=== PATIENT | male | born 1945 | race Caucasian/White ===

== ENCOUNTER 2023-06-02 17:42 | Emergency (ER) | payer OTHER ==
[~2023-06-02] VITALS: Ht 175.3 cm; Wt 83.3 kg
[2023-06-02 18:54] VITALS: BP 147/53; PULSE 52; RESP 16; TEMP 97.7; O2SAT 98
== END 2023-06-02 19:31 | disposition home or self-care (01) ==
LOC: ER 17:42
DX: S00.83XA Contusion of other part of head, initial encounter (principal); I10 Essential (primary) hypertension; E78.5 Hyperlipidemia, unspecified; W18.09XA Striking against other object with subsequent fall, initial encounter; Y93.89 Activity, other specified; Y92.89 Other specified places as the place of occurrence of the external cause; Y99.8 Other external cause status
CPT/HCPCS: 70450; 72125

== ENCOUNTER 2024-07-25 18:11 | Inpatient (IN) | payer MEDICARE, OTHER ==
[~2024-07-25] VITALS: Ht 175.3 cm; Wt 71.8 kg
[~2024-07-25 18:11] MED LIST: ATEN25TA PO; ATOR40TA52 PO; DRON400T PO; FOLI-119 PO; LEVO-140 PO; LISI20TA56 PO; MUPI2OIN2 TOP
--- NOTE | 2024-07-25 18:41 | ECG ---
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
--- NOTE | 2024-07-25 19:30 | ED.PDOC ---
History of Present Illness HPI Comments 78 year old male presents to the ED with a chief complaint of generalized weakness onset 2 weeks. Patient states he has been experiencing generalized weakness as well as fatigue, increased sleeping, cough with occasional shortness of breath. Upon ED arrival, patient O2 sat was 88% on RA, placed on 2L O2. He has also been experiencing diarrhea for the past 2 days. PMHx HTN, HLD, thyroid. Denies chest pain, dizziness, nausea, vomiting, diarrhea, fevers, chills. No other symptoms or modifying factors present at this time. Chief Complaint: General Weakness Time Seen by MD: 18:43 Primary Care Provider: GEO Reviewed Notes: Medications, Allergies Allergies: Coded Allergies: NO KNOWN ALLERGIES (Unverified , 06/02/23) Home Meds Reported Medications Folic Acid (Folic Acid) 1 Mg Tab, 1 TAB PO DAILY for 90 Days, #90 07/26/24 Lisinopril (Lisinopril) 20 Mg Tab, 1 TAB PO DAILY for 90 Days, #90 07/26/24 Dronedarone Hydrochloride (Multaq) 400 Mg Tab, 1 TAB PO DAILY for 90 Days, #90 07/26/24 Atenolol (Atenolol) 25 Mg Tab, 0.5 TAB PO DAILY for 90 Days, #45 07/26/24 Atorvastatin Calcium (ATORVASTATIN CALCIUM) 40 Mg Tab, 1 TAB PO QPM for 10 Days, #10 07/26/24 Levothyroxine Sodium (Synthroid) 137 Mcg Tab, 1 TAB PO DAILY for 90 Days, #90 07/26/24 Mupirocin (Pseudomonas Fluores (Mupirocin) 2 % Oin, 1 APPLIC TOP TID for 20 D ays, #30 07/26/24 Information Source: Patient Mode of Arrival: Ambulatory Severity: Moderate Timing: Weeks Duration: Since onset Prehospital treatment: None Vital Signs Vital Signs Date Time Temp Pulse Resp B/P (MAP) Pulse Ox O2 Delivery O2 Flow Rate FiO2 07/26/24 02:57 62 98 Room Air* 2 N/A Nasal Cannula* 07/26/24 02:55 98.2 16 112/54 (73) 98.2 Physical Exam General: Awake, alert and oriented. No acute distress. Skin: Skin in warm, dry and intact. Appropriate color for ethnicity. HEENT: The head is normocephalic and atraumatic. Conjunctivae are clear without exudates or hemorrhage. Sclera is non-icteric. EOM are intact. No signs of nystagmus. Eyelids are normal in appearance without swelling or lesions. Oral mucosa is pink and moist Neck: The neck is supple with normal range of motion. No JVD. Cardiac: Heart rate and rhythm are normal. No murmurs, gallops, or rubs are auscultated. Respiratory: No signs of respiratory distress. Lung sounds are clear in all lobes bilaterally without rales, rhonchi, or wheezes. Abdominal: Abdomen is soft, non-tender without distention. Bowel sounds are present and normoactive in all four quadrants. Extremities: Bilateral lower extremity edema Neurological: The patient is awake, alert and oriented to person, place, and time with normal speech. Speech is clear. There is no facial asymmetry. Psychiatric: Appropriate mood and affect. Good judgement and insight. Review of Systems: REVIEW OF SYSTEMS: No fever, no chills, positive fatigue HEENT: No sore throat, no earache, no congestion, no neck pain. Cardiac: No chest pain. No palpitations. Lungs: Positive shortness of breath, positive cough. GI: No nausea, no vomiting, no diarrhea, no constipation, no abdominal pain : No dysuria, frequency, or urgency. No hematuria. Musculoskeletal: No joint pain , no joint swelling, no extremity edema. Skin: No rash, no itching. Neuro: No headache, no dizziness, positive generalized weakness Past Medical History PAST MEDICAL HISTORY: High Lipids, HTN, Thyroid Surgical History: CABG Family History Family History: Reviewed,noncontributory to illness, No family hx of Cancer, No family hx of DM, No family hx of Heart jemma, No family hx of HTN, No family hx ofKidney jemma, No family hx of Liver jemma, No family hx of Lung jemma, No family hx of Stroke Social History Smoker: Non-Smoker Alcohol: Denies ETOH Use Drugs: Denies Drug Use Lives In: Home Was a procedure done? Was a procedure done?: No EKG EKG : Comments No STEMI Differential Dx Considerations may include: Differential diagnoses considered includebut arenot limited to acute Bronchitis, Asthma, COPD, Pneumothorax, PE, CHF, Pulmonary HTN, Anemia, CO Poisoning, Methemoglobinemia, Hyperventilation, Metabolic Acidosis, Pulmonary Edema, Pneumonia, ACS, Pericardial Tamponade, Anxiety, other X-Ray, Labs, Meds, VS Vital Signs Date Time Temp Pulse Resp B/P (MAP) Pulse Ox O2 Delivery O2 Flow Rate FiO2 07/26/24 02:57 62 98 Room Air* 2 N/A Nasal Cannula* 07/26/24 02:55 98.2 62 16 112/54 (73) 98 98.2 07/26/24 00:15 98.4 66 16 116/62 (80) 98 98.4 07/25/24 18:39 75 07/25/24 18:28 98.2 77 24 109/55 (73) 88 98.2 Lab Test 07/25/24 23:20 07/25/24 19:08 Range/Units Blood Gas Specimen Type Arterial Blood Gas Sample Site Right radial Blood Gas Patient Temperature 37.0 Arterial Blood Date Drawn [id number] Arterial Blood pH 7.448 7.350-7.450 Arterial Blood Partial Pressure CO2 27.1 L 35.0-48.0 mmHg Arterial Blood Partial Pressure O2 65.6 L 83.0-108.0 mmHg Arterial Blood HCO3 18.3 L 21.0-28.0 mmol/L Arterial Blood Oxygen Saturation 91.4 L 94.0-98.0 % Arterial Blood Base Excess -4.4 L -2.0-3.0 mmol/L Arterial Blood Oxyhemoglobin 90.9 L 94.0-98.0 % Arterial Blood Carboxyhemoglobin 0.2 L 0.5-1.5 % Arterial Blood Methemoglobin 0.4 0.0-1.5 % Baldo Test Yes Blood Gas Total Hemoglobin 12.00 L 13.5-17.5 g/dL Blood Gas Liter Flow 2.00 Blood Gas Modality Nasal cannula FiO2 % 28.0 Specimen Drawn By David reyes White Blood Count 10.3 4.4-10.8 10^3/uL Red Blood Count 4.22 L 4.5-5.90 10^6/uL Hemoglobin 11.9 L 13.5-17.5 g/dL Hematocrit 35.8 L 41.0-53.0 % Mean Corpuscular Volume 84.8 80.0-100.0 fL Mean Corpuscular Hemoglobin 28.2 28.0-32.0 pg Mean Corpuscular Hemoglobin Concent 33.2 32.0-36.0 g/dL Red Cell Distribution Width 15.8 H 11.8-14.3 % Platelet Count 307 140-450 10^3/uL Mean Platelet Volume 7.1 6.9-10.8 fL Neutrophils (%) (Auto) 85.9 H 37.0-80.0 % Lymphocytes (%) (Auto) 6.5 L 10.0-50.0 % Monocytes (%) (Auto) 6.3 0.0-12.0 % Eosinophils (%) (Auto) 0.8 0.0-7.0 % Basophils (%) (Auto) 0.5 0.0-2.0 % Neutrophils # (Auto) 8.8 H 1.6-8.6 10 ^3/uL Lymphocytes # (Auto) 0.7 0.4-5.4 10 ^3/uL Monocytes # (Auto) 0.6 0-1.3 10 ^3/uL Eosinophils # (Auto) 0.1 0-0.8 10 ^3/uL Basophils # (Auto) 0.1 0-0.2 10 ^3/uL Nucleated Red Blood Cells 0.0 % Sodium Level 136 136-145 mmol/L Potassium Level 3.8 3.5-5.1 mmol/L Chloride Level 105 98-107 mmol/L Carbon Dioxide Level 20 20-31 mmol/L Anion Gap 11 5-15 Blood Urea Nitrogen 17 9-23 mg/dL Creatinine 0.80 0.700-1.30 mg/dL Glomerular Filtration Rate Calc 91 >90 mL/min BUN/Creatinine Ratio 21.3 H 10.0-20.0 Serum Glucose 109 H 74-106 mg/dL Lactic Acid Level 1.6 0.4-2.0 mmol/L Calcium Level 9.0 8.7-10.4 mg/dL Magnesium Level 1.9 1.6-2.6 mg/dL Total Bilirubin 1.2 H 0.2-1.0 mg/dL Aspartate Amino Transferase (AST) 40 13-40 U/L Alanine Aminotransferase (ALT) 35 7-40 U/L Alkaline Phosphatase 76 46-116 U/L Troponin I High Sensitivity 16 </=54 ng/L B-Type Natriuretic Peptide 387.44 0-100 pg/mL Total Protein 5.8 5.7-8.2 g/dL Albumin 3.0 L 3.2-4.8 g/dL Thyroid Stimulating Hormone (TSH) 12.89 H 0.55-4.78 uIU/mL Microbiology Date/Time Source Procedure Growth Status 07/25/24 19:08 Blood Blood Culture - Preliminary NO GROWTH AFTER 24 HOURS OF INCUBATION. Resulted 07/25/24 18:50 Blood Blood Culture - Preliminary NO GROWTH AFTER 24 HOURS OF INCUBATION. Resulted Current Medications Medications (Trade) Dose Ordered Sig/Laurence Route Start Time Stop Time Status Last Admin Ceftriaxone Sodium 50 ml @ 100 mls/hr ONCE ONCE IV 07/25/24 22:30 07/25/24 22:59 DC 07/25/24 22:30 Azithromycin 250 ml @ 125 mls/hr ONCE ONCE IV 07/25/24 22:30 07/26/24 00:29 DC 07/25/24 22:30 Sodium Chloride 1,000 ml @ 100 mls/hr Q10H ONCE IV 07/25/24 23:15 07/26/24 06:08 DC 07/25/24 23:15 [place] [address] Ph: [phone] DIAGNOSTIC IMAGING Diagnostic Imaging Report : [id number] Signed PATIENT: JAMIL INIGUEZ ACCT: [id number] UNIT: [id number] : 1945 LOC: ER ROOM / BED: / AGE / SEX: 78 / M ADM STATUS: REG ER SERVICE 49 ORDERING PHYSICIAN: LAILA DILLON MD PROCEDURE(s): CXRP - CHEST PORTABLE REASON: Cough, hypoxia ORDER NUMBER(s): [id number], ACCESSION NUMBER(s): [id number] CHEST RADIOGRAPH Indication: Cough, hypoxia Technique: Single frontal view of the chest was obtained Comparison: None FINDINGS: Both lungs are filled with innumerable ill-defined nodules of various sizes. There is a probable effusion left lung base . heart size is normal patient has had an open thoracotomy. IMPRESSION: 1. Innumerable ill-defined nodules. Follow-up CT examination is recommended ATED BY: PATRICK QUINONEZ MD DICTATED DATE/TIME: 07/25/241927 SIGNED BY: PATRICK QUINONEZ MD SIGNED DATE/TIME: 07/25/241927 CC: [facility] [id number] [place] [id number] Ph: [phone] DIAGNOSTIC IMAGING Diagnostic Imaging Report : [id number] Signed PATIENT: JAMIL INIGUEZ ACCT: [id number] UNIT: [id number] : 1945 LOC: ER ROOM / BED: / AGE / SEX: 78 / M ADM STATUS: REG ER SERVICE 16 ORDERING PHYSICIAN: LAILA DILLON MD PROCEDURE(s): CXICT - CHEST WITH CONTRAST REASON: Abnormal chest x ray ORDER NUMBER(s): [id number], ACCESSION NUMBER(s): [id number] Procedure: CT CHEST WITH CONTRAST Reason for study/Clinical History: Abnormal chest x ray Comparison Study: None available at time of dictation. Exam Date: 07/25/2024 11:00 PM Radiation Dose Information: CTDI volume is 16.25 mGy. Dose-length product is 625.89 mGy*cm TECHNIQUE: After the uneventful administration of intravenous contrast intravenously, CT imaging was performed through the chest. Coronal and sagittal reformations were performed by the technologist. Contrast consisted of 100 mL Omnipaque 300 with none wasted FINDINGS: Patient had innumerable round chest nodules various sizes which are more confluent in the lung bases. There is bilateral pleural effusions heart is enlarged with dense calcifications in the coronary arteries patient has had open thoracotomy bones are osteopenic. IMPRESSION: Innumerable well-circumscribed chest nodules. I would check patient's clinical history 4 possible primary disease If more imaging is required, I would recommend PET scan. Biopsy would be appropriate if primary lesion is not known. 1. All CT scans at this medical facility are performed using dose modulation techniques as appropriate to a performed exam including the following: Automated exposure control was utilized; adjustment of the MA and/or KV according to patient size; and use of iterative reconstruction technique. ATED BY: PATRICK QUINONEZ MD DICTATED DATE/TIME: 07/25/242341 SIGNED BY: PATRICK QUINONEZ MD SIGNED DATE/TIME: 07/25/242341 CC: Time of 1ST Reevaluation: 19:13 Reevaluation 1ST: Unchanged Patient Education/Counseling: Diagnosis, Treatment, Prognosis Family Education/Counseling: No Family Present Departure 1 Departure Time of Disposition: 22:44 Impression: Primary Impression: Hypoxia Additional Impressions: Abnormal chest x-ray Anemia Disposition: ADMITTED INPATIENT Condition: Stable Comments 78-year-old male with generalized weakness, hypoxia. Abnormal chest x-ray sug gestive of malignant process. Patient will be admitted for oncology consultation, CT chest. Antibiotics initiated for coverage of possible infectious Consolidations of the lung. Extensive evaluation was performed in attempt to identify or rule out: (See differential diagnosis section) The following tests were ordered, and results were reviewed by me and discussed with patient: (See diagnostic results section) The following test were independently interpreted by me: EKG I reviewed and agreed with the following test results read by other providers: Chest x-ray I reviewed the following notes from the pt's past medical encounters: Patient instructions from May 2023 for head injury Additional information was gathered from interviewing the following independent historians: N/A Discussion of management or test interpretation with external physician/other qualified health care manager: N/A Addressed an acute or chronic illness that poses a threat to life or bodily function: Shortness of breath, hypoxia going to suspected malignancy Decision regarding hospitalization or escalation of hospital level of care: Risk and benefits of admission for further treatment of patient's condition was considered. Due to patient's current clinical condition, high risk of decline and poor outcome if discharged and need for further inpatient management and monitoring, patient will be admitted to the hospital. Discussed with the patient Drug therapy requiring intensive monitoring for toxicity: IV contrast Parenteral controlled substances: N/A Decision regarding elective major surgery with identified patient or procedure risk factors: N/A Decision regarding emergency major surgery: N/A Decision not to resuscitate or to de-escalate care because of poor prognosis: N/A Diagnosis or treatment significantly limited by social determinants of health: N/A Critical Care Note Critical Care Time?: No Stability Stability form required: No I personally scribed for LAILA DILLON MD ([email or web address]) on 07/25/24 at 19:30. Elec tronically submitted by Jody He ([email or web address]). I personally scribed for LAILA DILLON MD ([email or web address]) on 07/25/24 at 19:30. Electronically submitted by Jody He ([email or web address]). I personally scribed for LAILA DILLON MD ([email or web address]) on 07/25/24 at 20:12. Electronically submitted by Jody He ([email or web address]). I personally scribed for LAILA DILLON MD ([email or web address]) on 07/25/24 at 23:47. Electronically submitted by Jody He ([email or web address]). LAILA DILLON MD Jul 25, 2024 19:30
[2024-07-25 19:36] LABS: Basophils # (auto) 0.1 10 ^3/uL (0-0.2); Basophils % (auto) 0.5 % (0.0-2.0); Eosinophils # (auto) 0.1 10 ^3/uL (0-0.8); Eosinophils % (auto) 0.8 % (0.0-7.0); Hematocrit 35.8 % (41.0-53.0); Hemoglobin 11.9 g/dL (13.5-17.5); Lymphocytes # (auto) 0.7 10 ^3/uL (0.4-5.4); Lymphocytes % (auto) 6.5 % (10.0-50.0); Mean Corpuscular Hemoglobin 28.2 pg (28.0-32.0); Mean Corpuscular Hgb Conc. 33.2 g/dL (32.0-36.0); Mean Corpuscular Volume 84.8 fL (80.0-100.0); Monocytes # (auto) 0.6 10 ^3/uL (0-1.3); Monocytes % (auto) 6.3 % (0.0-12.0); Neutrophils # (auto) 8.8 10 ^3/uL (1.6-8.6); Neutrophils % (auto) 85.9 % (37.0-80.0); Platelet Count (auto) 307 10^3/uL (140-450); Red Blood Cells 4.22 10^6/uL (4.5-5.90); Red Cell Distribution Width 15.8 % (11.8-14.3); White Blood Cell 10.3 10^3/uL (4.4-10.8)
[2024-07-25 20:00] LABS: Alanine Aminotransferase 35 U/L (7-40); Alkaline Phosphatase 76 U/L (46-116); Anion Gap 11 (5-15); BUN/Creatinine Ratio 21.3 (10.0-20.0); Blood Urea Nitrogen 17 mg/dL (9-23); Carbon Dioxide 20 mmol/L (20-31); Chloride 105 mmol/L (98-107); Magnesium 1.9 mg/dL (1.6-2.6); Potassium 3.8 mmol/L (3.5-5.1); Sodium 136 mmol/L (136-145); Total Protein 5.8 g/dL (5.7-8.2)
[2024-07-25 20:01] LABS: Bilirubin, Total 1.2 mg/dL (0.2-1.0)
[2024-07-25 20:02] LABS: Aspartate Aminotransferase 40 U/L (13-40); Glucose 109 mg/dL (74-106)
[2024-07-25] MEDS: cefTRIAXone 1GM/50ML D5W 50 ML IV ONE (22:30)
[2024-07-25] MEDS: AZITHROMYCIN 500MG/ 250ML 250 ML IV ONE (22:30)
[2024-07-25] MEDS: IOHEXOL 300 MG/ML 100ML BOTTLE IJ ONE (22:57)
[2024-07-25] MEDS: SODIUM CHLORIDE 0.9% 1,000 ML IV ONE (23:15)
[2024-07-25 23:30] LABS: Base Excess -4.4 mmol/L (-2.0-3.0)
--- NOTE | 2024-07-25 23:44 | DVH ---
Procedure: CT CHEST WITH CONTRAST Reason for study/Clinical History: Abnormal chest x ray Comparison Study: None available at time of dictation. Exam Date: 07/25/2024 11:00 PM Radiation Dose Information: CTDI volume is 16.25 mGy. Dose-length product is 625.89 mGy*cm TECHNIQUE: After the uneventful administration of intravenous contrast intravenously, CT imaging was performed through the chest. Coronal and sagittal reformations were performed by the technologist. Co ntrast consisted of 100 mL Omnipaque 300 with none wasted FINDINGS: Patient had innumerable round chest nodules various sizes which are more confluent in the lung bases. There is bilateral pleural effusions heart is enlarged with dense calcifications in the coronary jolie maura patient has had open thoracotomy bones are osteopenic. IMPRESSION: Innumerable well-circumscribed chest nodules. I would check patient's clinical history 4 possible jame angel disease If more imaging is required, I would recommend PET scan. Biopsy would be appropriate if primary lesio n is not known. 1. All CT scans at this medical facility are performed using dose modulation techniques as appropriat e to a performed exam including the following: Automated exposure control was utilized; adjustment of the MA and/or KV according to patient size; and use of iterative reconstruction technique.
[2024-07-26] VITALS (16 sets, daily range): BP systolic 94–164; BP diastolic 33–117; PULSE 62–77; RESP 15–18; TEMP 97.4–98.1; O2SAT 90–98
--- NOTE | 2024-07-26 05:09 | DVHHPRES ---
History of Present Illness Resident Creating Document: ROSA MARK RESIDENT History of Present Illness Mr. Ziegler is a 78-year-old male patient with past medical history of CABG, hypothyroidism who presented to the ER with a chief complaint of generalized weakness and productive cough for the past 2 weeks. Patient reports that he was doing all right and then developed worsening weakness, could not stay awake, reported lethargy which has been gradually worsening for the past couple of weeks. He denies any shortness of breaths, orthopnea or PND. Denies chest pain, abdominal or urinary symptoms. Patient denied any recent traveling or hiking or any insect bites. On arrival to the ER, patient was tachypneic and hypoxic, patient was started on nasal cannula oxygen supplementation. Chest x-ray completed, showed bilateral nodules. CT chest with contrast completed, showed Innumerable well- circumscribed chest nodules. I would check patient's clinical history 4 possible primary disease. Past medical history: CABG, hypothyroidism Family history: Lung disease in sister, details unknown. Otherwise unremarkable. Social history: Denies lifetime history of smoking, alcohol or drug use. Worked at [employer]. Home medications: Atenolol 12.5 mg, lisinopril 10 mg, Synthroid 137 mcg daily, atorvastatin 40 mg daily, aspirin 80 mg daily, multivitamins. PCP: Estuardo Mckeon Patient seen and examined at the bedside. Has bilateral basilar crackles. Lower extremity 2+ pitting edema. Past Medical History Hypothyroidism, hypertension Past Surgical History CABG Smoke: No ALCOHOL: none Drugs: None Lives: with Family (Daughter) Review of Systems Allergies: Coded Allergies: NO KNOWN ALLERGIES (Unverified , 06/02/23) Exam Vital Signs Vital Signs Date Time Temp Pulse Resp B/P (MAP) Pulse Ox O2 Delivery O2 Flow Rate FiO2 07/26/24 02:57 62 98 Room Air* 2 N/A Nasal Cannula* 07/26/24 02:55 98.2 16 112/54 (73) 98.2 Exam Patient sitting in the wheelchair, well conversational, A&O x4 General: afebrile, palor, mucosae are moist Cardiovascular: Regular S1 and S2. No murmurs, gallops or rubs. No JVD elevation. Bilateral 2+ pitting edema. Respiratory: Bilateral basilar crackles on auscultation. Pocus completed, showed small bilateral pleural effusion. Saturating 96 on nasal cannula supplementation. Abdomen: Soft, nontender, nondistended, normoactive bowel sounds, no rebound tenderness, no organomegaly, no masses Genitourinary: Deferred MSK/skin: Mobilizes 4 limbs. Skin is dry and warm Neurological: No motor, no sensitive deficits, normal speech. Pupils are isocoric and reactive. Psych/Mental Status: A/Ox3 Labs/Xrays Labs Test 07/25/24 23:20 07/25/24 19:08 Range/Units Blood Gas Specimen Type Arterial Blood Gas Sample Site Right radial Blood Gas Patient Temperature 37.0 Arterial Blood Date Drawn [id number] Arterial Blood pH 7.448 7.350-7.450 Arterial Blood Partial Pressure CO2 27.1 L 35.0-48.0 mmHg Arterial Blood Partial Pressure O2 65.6 L 83.0-108.0 mmHg Arterial Blood HCO3 18.3 L 21.0-28.0 mmol/L Arterial Blood Oxygen Saturation 91.4 L 94.0-98.0 % Arterial Blood Base Excess -4.4 L -2.0-3.0 mmol/L Arterial Blood Oxyhemoglobin 90.9 L 94.0-98.0 % Arterial Blood Carboxyhemoglobin 0.2 L 0.5-1.5 % Arterial Blood Methemoglobin 0.4 0.0-1.5 % Baldo Test Yes Blood Gas Total Hemoglobin 12.00 L 13.5-17.5 g/dL Blood Gas Liter Flow 2.00 Blood Gas Modality Nasal cannula FiO2 % 28.0 Specimen Drawn By David reyes White Blood Count 10.3 4.4-10.8 10^3/uL Red Blood Count 4.22 L 4.5-5.90 10^6/uL Hemoglobin 11.9 L 13.5-17.5 g/dL Hematocrit 35.8 L 41.0-53.0 % Mean Corpuscular Volume 84.8 80.0-100.0 fL Mean Corpuscular Hemoglobin 28.2 28.0-32.0 pg Mean Corpuscular Hemoglobin Concent 33.2 32.0-36.0 g/dL Red Cell Distribution Width 15.8 H 11.8-14.3 % Platelet Count 307 140-450 10^3/uL Mean Platelet Volume 7.1 6.9-10.8 fL Neutrophils (%) (Auto) 85.9 H 37.0-80.0 % Lymphocytes (%) (Auto) 6.5 L 10.0-50.0 % Monocytes (%) (Auto) 6.3 0.0-12.0 % Eosinophils (%) (Auto) 0.8 0.0-7.0 % Basophils (%) (Auto) 0.5 0.0-2.0 % Neutrophils # (Auto) 8.8 H 1.6-8.6 10 ^3/uL Lymphocytes # (Auto) 0.7 0.4-5.4 10 ^3/uL Monocytes # (Auto) 0.6 0-1.3 10 ^3/uL Eosinophils # (Auto) 0.1 0-0.8 10 ^3/uL Basophils # (Auto) 0.1 0-0.2 10 ^3/uL Nucleated Red Blood Cells 0.0 % Sodium Level 136 136-145 mmol/L Potassium Level 3.8 3.5-5.1 mmol/L Chloride Level 105 98-107 mmol/L Carbon Dioxide Level 20 20-31 mmol/L Anion Gap 11 5-15 Blood Urea Nitrogen 17 9-23 mg/dL Creatinine 0.80 0.700-1.30 mg/dL Glomerular Filtration Rate Calc 91 >90 mL/min BUN/Creatinine Ratio 21.3 H 10.0-20.0 Serum Glucose 109 H 74-106 mg/dL Lactic Acid Level 1.6 0.4-2.0 mmol/L Calcium Level 9.0 8.7-10.4 mg/dL Magnesium Level 1.9 1.6-2.6 mg/dL Total Bilirubin 1.2 H 0.2-1.0 mg/dL Aspartate Amino Transferase (AST) 40 13-40 U/L Alanine Aminotransferase (ALT) 35 7-40 U/L Alkaline Phosphatase 76 46-116 U/L Troponin I High Sensitivity 16 </=54 ng/L B-Type Natriuretic Peptide 387.44 0-100 pg/mL Total Protein 5.8 5.7-8.2 g/dL Albumin 3.0 L 3.2-4.8 g/dL Thyroid Stimulating Hormone (TSH) 12.89 H 0.55-4.78 uIU/mL Assessment/Plan Assessment/Plan Acute Hypoxic respiratory failure Bilateral pulmonary nodules rule out malignancy ? Congestive heart failure exacerbation Bilateral pleural effusion ? Malignant ? Bilateral multifocal pneumonia ? Uncontrolled hypothyroidism Anemia, likely anemia of chronic disease Plan: Chest CT with contrast completed by the admitting, showed Patient had innumerable round chest nodules various sizes which are more confluent in the lung bases.There is bilateral pleural effusions heart is enlarged with dense calcifications in the coronary arteries patient has had open thoracotomy bones are osteopenic. Recommend PET scan. Biopsy would be appropriate if primary lesion is not known. Pocus completed, showed small bilateral pleural effusion. Did not order chest ultrasound. Consider CT head/abdomen and pelvis to rule out primary source Started IV ceftriaxone and azithromycin Follow up with Coccidioides testing and sputum culture Follow up with free T3 and free T4 Continue home medication Synthroid 137 mcg daily Continue home medication aspirin 81 mg daily, lisinopril 10 mg daily Echocardiogram pending, DC IV fluids Plan discussed with patient in which all questions have been answered Goals of care discussed with patient for more than 28 minutes, full code status Case discussed with Dr. Gutierrez Plan discussed with: Patient Date of Service: Jul 26, 2024 Billing Provider: KYLEE GUTIERREZ MD Common Visit Codes: 98631-[id number] INP/OBS CARE (HIGH) ROSA MARK RESIDENT Jul 26, 2024 05:09 KYLEE GUTIERREZ MD Jul 26, 2024 09:57
[2024-07-26] MEDS ORDERED: HYDROcodone-ACET 5/325MG TAB PO PRN (05:30)
[2024-07-26] MEDS ORDERED: ACETAMINOPHEN 500 MG TAB or CAP PO PRN (05:30)
[2024-07-26] MEDS ORDERED: MORPHINE SULFATE INJ 2 MG/ml SYRG IV PRN (05:30)
[2024-07-26] MEDS: LEVOTHYROXINE SODIUM 25 MCG TAB PO SCH (06:00)
[2024-07-26] MEDS: IPRATROPIUM BROM 0.5 MG/2.5ML INH SOL NEB ONE (06:38)
[2024-07-26] MEDS: ALBUTEROL SULF 2.5 MG/0.5ML(0.5%) NEB SOLN NEB ONE (06:38)
[2024-07-26 06:47] LABS: T3 Total 0.42 ng/mL (0.60-1.81)
[2024-07-26 06:48] LABS: Free T4 (Free Thyroxine) 0.87 ng/dL (0.89-1.76)
[2024-07-26] MEDS: cefTRIAXone 1GM/50ML D5W 50 ML IV SCH (09:09)
--- NOTE | 2024-07-26 09:42 | DVHPNRES ---
Progress Note Date Seen: Jul 26, 2024 Resident Creating Document: FLORY VENEGAS RESIDENT Has the PT tested + for MRSA If YES, has PT been informed?: No Medical Necessity Reason Pt with a Central, PICC or Fol: No Subjective Review of Systems This is a 78-year-old male with past medical history of CABG x4, hypothyroidism, hypertension, who presented to the ED with chief complaint of generalized weakness, feeling tired productive cough for the past two weeks. The patient states that has not been feeling himself in the past two weeks, with increased fatigue and that his family members have also noticed it him strange. Upon admission, the patient denied shortness of breath, chest pain, abdominal tenderness, weight loss, fever/chills, night sweats or any other symptoms at this time. The patient reports a previous travels to [place] in March but no recent travels outside the country or any sick contacts. On admission patient was tachypneic and slightly hypoxic requiring oxygen through nasal cannula. Initial chest x-ray was performed showing multiple ill-defined nodules of various sizes. We performed a CT scan of the chest which showed multiple well- circumscribed chest nodules with mild bilateral pleural effusion. Patient will be admitted for further assessment and management. Patient seen and examined at bedside. Patient has generalized weakness and fatigue but is alert and oriented in person, place and time. There are well circumscribed multiple chest nodules on CT scan of the chest which could be infectious etiology but malignancy needs to be ruled out. Patient was started on IV ceftriaxone azithromycin for possible ongoing bacterial pneumonia. We ordered sputum cultures, blood cultures, coccidiomycosis Abs. Patient is on 3 L of oxygen through nasal cannula with no acute respiratory distress at this time. The patient denies fever/chills, chest pain, shortness of breath, abdominal tenderness or any other symptoms. ROS Constitutional: Reports generalized weakness and fatigue. Denies weight loss, fever and chills. HEENT: Denies changes in vision and hearing. Respiratory: Denies shortness of breath and cough Cardiovascular: Denies chest discomfort or palpitations GI: Denies abdominal pain, nausea, vomiting and diarrhea. : Denies dysuria and urinary frequency. Musculoskeletal: Denies myalgias and joint pain Skin: Denies rash and pruritus. Neurological: Denies dizziness, headache, vision or hearing problems Objective vital signs Vital Sign Date Time Temp Pulse Resp B/P (MAP) Pulse Ox O2 Delivery O2 Flow Rate FiO2 07/26/24 08:26 98.1 64 16 92 98.1 07/26/24 08:00 Nasal Cannula* 3 32 07/26/24 08:00 107/47 (67) Total Intake and Output 07/25/24 07/25/24 07/26/24 15:00 23:00 07:00 Intake Total 1300 ml Balance 1300 ml medications Current Medications Medications Dose Ordered Sig/Laurence Route Start Time Stop Time Status Last Admin Dose Admin Ceftriaxone Sodium 50 ml @ 100 mls/hr DAILY@09 IV 07/26/24 09:00 07/26/24 09:09 100 MLS/HR Azithromycin 250 ml @ 125 mls/hr DAILY IV 07/26/24 10:00 Lisinopril 10 mg DAILY PO 07/26/24 10:00 Aspirin 81 mg DAILY PO 07/26/24 10:00 Acetaminophen 500 mg Q4HPRN PRN PO 07/26/24 05:30 Acetaminophen/ Hydrocodone Bitart 1 tab Q4HPRN PRN PO 07/26/24 05:30 Morphine Sulfate 1 mg Q2HPRN PRN IV 07/26/24 05:30 Levothyroxine Sodium 137 mcg QAM@0600 PO 07/26/24 06:00 07/26/24 06:00 137 MCG Ipratropium [place] 0.5 mg Q4HR NEB 07/26/24 10:00 Albuterol 2.5 mg Q4HR NEB 07/26/24 10:00 Furosemide 40 mg BIDD IV 07/26/24 18:00 UNV Examination Physical Examination General: Patient alert and oriented in person, place and time. Patient following commands. HEENT: Normocephalic, atraumatic, moist mucous membranes Respiratory/pulmonary: There is decreased breath sounds bilateral lungs with very mild crackles, no wheezes present at this time. Currently on 3 L of oxygen through nasal cannula Cardiovascular: Normal heart sounds S1 and S2 with no associated murmurs Abdomen: Abdomen nondistended, there is no pain to palpation in any of the abdominal quadrants, no palpable masses. Extremities: There is bilateral lower extremity edema 2+ extending to midtibia bilaterally Peripheral Pulses: 3+ Radial (R). 3+ Radial (L). 3+ Dorsalis pedis (R). 3+ Dorsalis pedis(L) Skin: No rashes or pruritus, there is no sacral edema present at this time. Neurological: Intact cranial nerves with no focal neurologic deficits laboratory and microbiology Laboratory Tests 07/25/24 19:08 Test 07/25/24 19:08 Range/Units Serum Glucose 109 H 74-106 mg/dL Problem List/Assessment/Plan Problem List/Assessment/Plan Assessment/Plan Acute hypoxic respiratory failure Multiple pulmonary nodules, likely infectious. R/O malignancy Possible gram +/- bacterial pneumonia Bilateral pleural effusion, possibly infectious cause, R/O malignancy -patient has been feeling generalized weakness and fatigue in the past two weeks with chronic cough -initial chest x-ray showed multiple ill-defined nodules of various size widespread on bilateral lung gomes -CT scan of the chest showed multiple well-circumscribed chest nodules with bilateral mild pleural effusion -ordered sputum cultures -ordered coccidiomycosis antibody -ordered blood cultures -currently requiring 3 L of oxygen through nasal cannula -start IV ceftriaxone -start IV azithromycin -monitor oxygen saturation and titrate down as tolerated Possible acute on chronic systolic/diastolic heart failure -Bilateral lower extremity edema 2+ ext to mid tibias -BNP was 387.4 -EKG showed sinus rhythm with nonspecific T-waves inversion in leads III, AVF, V5, V6 -troponins were negative -ordered echocardiogram -start furosemide 40 mg IV b.i.d. -monitor in's and out Hypothyroidism -TSH was 12.89, free T4 0.87 and total T3 0.42 -continue levothyroxine 137 mcg q.a.m. Mild normocytic normochromic anemia, likely anemia of chronic diseases. Rule out iron-deficiency -Hb 11.9 -order iron panel and ferritin Hx of CAD, CABGX4 -Continue ASA 81 mg daily Goals of care discussed with the patient at bedside for >25min, FULL CODE Plan discussed with Dr. Samano Plan discussed with: Patient My Orders My Orders Orders - FLORY VENEGAS RESIDENT Procedure Category Date Status Time Urinalysis LAB 07/26/24 Logged 06:59 Drug Screen LAB 07/26/24 Logged 06:59 Communication Order ORDERS 07/26/24 Transmitted 06:59 Rapid Influenza A&B LAB 07/26/24 Logged 07:00 Furosemide Injection PHA 07/26/24 Logged (Lasix Injection) 18:00 Date of Service: Jul 26, 2024 Billing Provider: KYLEE SAMANO MD Common Visit Codes: [id number] INP/OBS CARE(HIGH) FLORY VENEGAS RESIDENT Jul 26, 2024 09:42 KYLEE SAMANO MD Jul 26, 2024 10:09
[2024-07-26] MEDS: ALBUTEROL SULF 2.5 MG/0.5ML(0.5%) NEB SOLN NEB SCH ×2 (10:12→23:32)
[2024-07-26] MEDS: IPRATROPIUM BROM 0.5 MG/2.5ML INH SOL NEB SCH ×2 (10:13→23:31)
[2024-07-26] MEDS: AZITHROMYCIN 500MG/ 250ML 250 ML IV SCH (10:58)
[2024-07-26] MEDS: ASPirin 81 mg TAB PO SCH (11:02)
[2024-07-26] MEDS: LISINOPRIL 5 MG TAB PO SCH (11:36)
[2024-07-26 12:07] LABS: Urine Bacteria None Seen /hpf (None Seen)
[2024-07-26 12:15] LABS: Urine Blood 3+ /uL (Negative); Urine Clarity Turbid (Clear); Urine Color Light-Orange (Yellow); Urine Mucus FEW (None Seen); Urine Protein, UAD 1+ (Negative); Urine Squamous Epithelial Cell FEW /hpf (<5); Urine Urobilinogen Normal (Negative); Urine WBC 47 /HPF (0-3)
[2024-07-26 12:29] LABS: Urine Specific Gravity > 1.035 (1.001-1.035)
[2024-07-26 13:02] LABS: Rapid Influenza A Negative (Negative); Rapid Influenza B Negative (Negative)
--- NOTE | 2024-07-26 13:58 | DVHSR ---
APPROVED REPORT EXAM: Two-dimensional and M-mode echocardiogram with Doppler and color Doppler. Blood Pressure: 116/62 mmHg INDICATION ? CHF RISK FACTORS Height: 69, Weight: 180 DIMENSIONS LVDd (3.8-5.7cm)LA (2D)4.4 (1.9-4.0cm)Aortic Root4.1 (2.0-3.7cm) LVDs (2.5-4.0cm)LA (MM) (1.9-4.0cm)Aortic Cusp Exc1.1 (1.5-2.0cm) EF (%) 55.0 (55-70%)Rt. Atrium4.7 (1.9-4.0cm)Asc. Aorta cm Mitral Valve MitralMitral Stenosis E wave1.09m/sMV Mean GR.3mmHg A wave1.27m/sMV Peak GR.97mmHg E/A ratio0.92D MVAcm2 DECEL [id number] 1/2 [id number] IVRTmsDop MVA2.20cm2 Aortic Valve Aortic ValveAortic Stenosis V11.25m/Sakina Mean GR.6mmHg V21.58m/Sakina Peak GR.10mmHg LVOT Diameter2.2 (1.8-2.4cm)Doppler AVA3.01cm2 Pulmonic Valve V21.26m/s Tricuspid Valve TR Velocity2.76m/s [id number] Conclusion lvef 55% moderate LVH normal rv function no severe valve abnormalities noted mild mitral stenosis, severe MAC aortic sclerosis is noted left atrium enlarged
[2024-07-26 15:55] LABS: Amphetamine Screen, Urine Neg (NEGATIVE); Barbiturate Scree,Urine Neg (NEGATIVE); Benzodiazephine Screen, Urine Neg (NEGATIVE); Opiate Scree,Urine Neg (NEGATIVE); Phencyclidine Screen, Urine Neg (NEGATIVE)
[2024-07-26 15:56] LABS: Cannabinoid Screen, Urine Neg (NEGATIVE); Cocaine Screen, Urine Neg (NEGATIVE)
[2024-07-26 18:19] LABS: COVID19 ANTIGEN SOFIA FIA NEGATIVE (NEGATIVE)
[2024-07-26] MEDS: FUROSEMIDE 40 MG/4 ML VIAL IV SCH (18:22)
[2024-07-27] VITALS (13 sets, daily range): BP systolic 91–120; BP diastolic 37–69; PULSE 73–89; RESP 16–20; TEMP 97.6–98.2; O2SAT 90–98
[2024-07-27 05:46] LABS: Basophils # (auto) 0.2 10 ^3/uL (0-0.2); Eosinophils # (auto) 0 10 ^3/uL (0-0.8); Eosinophils % (auto) 0.3 % (0.0-7.0); Hematocrit 34.2 % (41.0-53.0); Hemoglobin 11.6 g/dL (13.5-17.5); Lymphocytes # (auto) 0.2 10 ^3/uL (0.4-5.4); Lymphocytes % (auto) 2.5 % (10.0-50.0); Mean Corpuscular Hemoglobin 28.9 pg (28.0-32.0); Mean Corpuscular Volume 84.9 fL (80.0-100.0); Monocytes # (auto) 0.5 10 ^3/uL (0-1.3); Monocytes % (auto) 5.6 % (0.0-12.0); Neutrophils # (auto) 8.5 10 ^3/uL (1.6-8.6); Neutrophils % (auto) 89.6 % (37.0-80.0); Platelet Count (auto) 280 10^3/uL (140-450); Red Blood Cells 4.03 10^6/uL (4.5-5.90); Red Cell Distribution Width 15.7 % (11.8-14.3); White Blood Cell 9.5 10^3/uL (4.4-10.8)
[2024-07-27 06:19] LABS: Alanine Aminotransferase 34 U/L (7-40); Albumin 2.9 g/dL (3.2-4.8); Alkaline Phosphatase 72 U/L (46-116); Anion Gap 10 (5-15); Aspartate Aminotransferase 49 U/L (13-40); BUN/Creatinine Ratio 16.7 (10.0-20.0); Bilirubin, Total 0.8 mg/dL (0.2-1.0); Blood Urea Nitrogen 13 mg/dL (9-23); Calcium 8.7 mg/dL (8.7-10.4); Carbon Dioxide 24 mmol/L (20-31); Chloride 103 mmol/L (98-107); Glucose 122 mg/dL (74-106); Potassium 3.3 mmol/L (3.5-5.1); Sodium 137 mmol/L (136-145); Total Protein 5.9 g/dL (5.7-8.2)
[2024-07-27 06:26] LABS: INR 1.14 (0.9-1.15); Prothrombin Time 11.9 sec (9.3-11.8)
[2024-07-27] MEDS: POTASSIUM CHL 20 Meq TABLET PO ONE (09:22)
--- NOTE | 2024-07-27 09:28 | DVH ---
Bilateral Chest Sonogram Date: 07/27/2024 08:54 AM Clinical history: determine need of thora Technique: Limited sonographic evaluation of the bilateral chest was performed to evaluate for pleur al effusion. Finding/Impression: Small right and trace left pleural effusion.
--- NOTE | 2024-07-27 16:32 | DVHPNRES ---
Progress Note Date Seen: Jul 27, 2024 Resident Creating Document: FLORY VENEGAS RESIDENT Has the PT tested + for MRSA If YES, has PT been informed?: No Medical Necessity Reason Pt with a Central, PICC or Fol: No Subjective Review of Systems This is a 78-year-old male with past medical history of CABG x4, hypothyroidism, hypertension, who presented to the ED with chief complaint of generalized weakness, feeling tired productive cough for the past two weeks. The patient states that has not been feeling himself in the past two weeks, with increased fatigue and that his family members have also noticed it him strange. Upon admission, the patient denied shortness of breath, chest pain, abdominal tenderness, weight loss, fever/chills, night sweats or any other symptoms at this time. The patient reports a previous travels to [place] in March but no recent travels outside the country or any sick contacts. On admission patient was tachypneic and slightly hypoxic requiring oxygen through nasal cannula. Initial chest x-ray was performed showing multiple ill-defined nodules of various sizes. We performed a CT scan of the chest which showed multiple well- circumscribed chest nodules with mild bilateral pleural effusion. Patient will be admitted for further assessment and management. Patient seen and examined at bedside. Patient has very mild shortness of breath at this point. Denies fever/chills, chest pain, abdominal pain or any other symptoms at this time. Patient was scheduled for pulmonary nodules biopsy but patient got aspirin dose this morning so we will hold aspiration biopsy until Tuesday to decrease the risk of bleeding. Meanwhile we will continue waiting for Coccidioides antibodies and keep giving IV antibiotics or possible infectious etiology. Patient is otherwise stable. ROS Constitutional: Denies weight loss, fever and chills. HEENT: Denies changes in vision and hearing. Respiratory: Denies shortness of breath and cough Cardiovascular: Denies chest discomfort or palpitations GI: Denies abdominal pain, nausea, vomiting and diarrhea. : Denies dysuria and urinary frequency. Musculoskeletal: Denies myalgias and joint pain Skin: Denies rash and pruritus. Neurological: Denies dizziness, headache, vision or hearing problems Objective vital signs Vital Sign Date Time Temp Pulse Resp B/P (MAP) Pulse Ox O2 Delivery O2 Flow Rate FiO2 07/27/24 13:18 75 18 95 07/27/24 13:12 Nasal Cannula* 3 32 07/27/24 13:00 97.7 105/51 (69) 97.7 Total Intake and Output 07/26/24 07/26/24 07/27/24 15:00 23:00 07:00 Intake Total 300 ml 520 ml 130 ml Balance 300 ml 520 ml 130 ml medications Current Medications Medications Dose Ordered Sig/Laurence Route Start Time Stop Time Status Last Admin Dose Admin Ceftriaxone Sodium 50 ml @ 100 mls/hr DAILY@09 IV 07/26/24 09:00 07/27/24 09:22 100 MLS/HR Azithromycin 250 ml @ 125 mls/hr DAILY IV 07/26/24 10:00 07/27/24 11:21 125 MLS/HR Lisinopril 10 mg DAILY PO 07/26/24 10:00 07/26/24 11:36 10 MG Acetaminophen 500 mg Q4HPRN PRN PO 07/26/24 05:30 Acetaminophen/ Hydrocodone Bitart 1 tab Q4HPRN PRN PO 07/26/24 05:30 Morphine Sulfate 1 mg Q2HPRN PRN IV 07/26/24 05:30 Levothyroxine Sodium 137 mcg QAM@0600 PO 07/26/24 06:00 07/27/24 05:53 137 MCG Furosemide 40 mg BIDD IV 07/26/24 18:00 07/26/24 18:22 40 MG Albuterol 2.5 mg Q6HR NEB 07/27/24 00:00 07/27/24 13:11 2.5 MG Ipratropium [place] 0.5 mg Q6HR NEB 07/27/24 00:00 07/27/24 13:11 0.5 MG Examination Physical Examination General: Patient alert and oriented in person, place and time. Patient following commands. HEENT: Normocephalic, atraumatic, moist mucous membranes Respiratory/pulmonary: There is decreased breath sounds bilateral lungs with very mild crackles, no wheezes present at this time. Currently on room air Cardiovascular: Normal heart sounds S1 and S2 with no associated murmurs Abdomen: Abdomen nondistended, there is no pain to palpation in any of the abdominal quadrants, no palpable masses. Extremities: There is bilateral lower extremity edema 2+ extending to midtibia bilaterally Peripheral Pulses: 3+ Radial (R). 3+ Radial (L). 3+ Dorsalis pedis (R). 3+ Dorsalis pedis(L) Skin: No rashes or pruritus, there is no sacral edema present at this time. Neurological: Intact cranial nerves with no focal neurologic deficits laboratory and microbiology Laboratory Tests 07/27/24 05:13 Test 07/27/24 05:13 Range/Units Serum Glucose 122 H 74-106 mg/dL Microbiology Date/Time Source Procedure Growth Status 07/26/24 15:00 Sputum Gram Stain - Final Resulted 07/26/24 15:00 Sputum Respiratory Culture - Preliminary Resulted 07/25/24 19:08 Blood Blood Culture - Preliminary NO GROWTH AFTER 24 HOURS OF INCUBATION. Resulted Problem List/Assessment/Plan Problem List/Assessment/Plan Assessment/Plan Acute hypoxic respiratory failure Multiple pulmonary nodules, likely infectious. R/O malignancy Possible gram +/- bacterial pneumonia Bilateral pleural effusion, possibly infectious cause, R/O malignancy -patient has been feeling generalized weakness and fatigue in the past two weeks with chronic cough -initial chest x-ray showed multiple ill-defined nodules of various size widespread on bilateral lung gomes -CT scan of the chest showed multiple well-circumscribed chest nodules with bilateral mild pleural effusion -ordered sputum cultures -ordered coccidiomycosis antibody -ordered blood cultures -currently on room air -cont IV ceftriaxone -cont IV azithromycin -monitor oxygen saturation and titrate down as tolerated -Schedulef for pulm nodule biopsy on tuesday Possible acute on chronic systolic/diastolic heart failure -Bilateral lower extremity edema 2+ ext to mid tibias -BNP was 387.4 -EKG showed sinus rhythm with nonspecific T-waves inversion in leads III, AVF, V5, V6 -troponins were negative -ordered echocardiogram -cont furosemide 40 mg IV b.i.d. -monitor in's and out -Stop aspirin Hypothyroidism -TSH was 12.89, free T4 0.87 and total T3 0.42 -continue levothyroxine 137 mcg q.a.m. Mild normocytic normochromic anemia, likely anemia of chronic diseases. Rule out iron-deficiency -Hb 11.9 -order iron panel and ferritin -Stop aspirin Hx of CAD, CABGX4 -Stop ASA 81 mg daily due to biopsy on tuesday Goals of care discussed with the patient at bedside for >25min, FULL CODE Plan discussed with Dr. Samano Plan discussed with: Patient My Orders My Orders Orders - WUILLEMIER C,FLORY RESIDENT Procedure Category Date Status Time Ct Abd Pelvis W CT 07/26/24 Logged Con-Oral & Iv 17:00 * Radiologist Consult CONS 07/26/24 Transmitted 17:02 * Wound Consult CONS 07/27/24 Transmitted Chest Ultrasound US 07/27/24 Resulted 08:49 Wound Culture W/ Gs CARLYN 07/27/24 In Process 15:13 Date of Service: Jul 27, 2024 Billing Provider: KYLEE SAMANO MD Common Visit Codes: [id number] INP/OBS CARE(HIGH) FLORY VENEGAS RESIDENT Jul 27, 2024 16:32 KYLEE SAMANO MD Jul 27, 2024 20:01
[2024-07-27] MEDS: GASTROGRAFIN 30 ML SOL ONE (16:46)
[2024-07-27] MEDS: IOHEXOL 300 MG/ML 100ML BOTTLE IJ ONE (18:27)
--- NOTE | 2024-07-27 20:01 | DVH ---
Exam: CT CT ABD PELVIS W CON-ORAL IV History: R/O GI malignancy Comparison Study: None available at time of dictation. TECHNIQUE: Multidetector CT of the abdomen and pelvis with IV contrast. Axial, coronal and sagittal m ultiplanar reformats were obtained from the axial data set by the technologist. Radiation Dose Information: CT Dose: CTDI volume is 12.68 mGy. Dose-length product is 625.36 mGy*cm FINDINGS: Moderate right with small left-sided pleural effusions and associated atelectasis. Innumerable nodul ar bilateral lung base lesions most consistent with metastasis. Partially visualized heart is unremar kable. Cholelithiasis no evidence of acute cholecystitis. Liver, spleen, pancreas and adrenal glands are unr emarkable. Mild nonspecific bilateral perinephric fat stranding. Otherwise, kidneys and ureters unremarkable. I rregular masslike density of the anterior superior urinary bladder with the extensionfrom the anterio r superior urinary bladder cephalad. There is additional 2.7 x 4.2 by 2.4 cm partially calcified mas s over the midline urinary bladder which appears to be associated with the anterior superior urinary bladder mass. Mild fat stranding adjacent to the urinary bladder. Prostate is heterogeneous measuring 3.3 x 5.2 by 4.5 cm. Mild wall thickening of the distal esophagus with mild wall thickening of the stomach. Small bowel lo ops are unremarkable. Appendix is unremarkable. Large amount of fecal material within the ascending a nd transverse colons. Descending colon and Sigmoid diverticulosis questionable minimal fat stranding adjacent to the sigmoid. No evidence of intraperitoneal free air or free fluid. No evidence of aortic aneurysm or dissection. Heavy atherosclerotic calcification of the aorta and b ilateral iliacs. Prominent right-sided retroperitoneal and iliac chain lymph nodes largest measuring up to 1.7 cm. Small fat containing right inguinal hernia. Minimal body wall edema. Tiny fat containing umbilical he rnia. No destructive osseous lesions are noted. Diffuse demineralization. IMPRESSION: Irregular masslike density over the anterior superior urinary bladder with extension from the anterio r superior urinary bladder cephalad. Additional partially calcified lesion within the mid urinary amber dder which appears to be connected to the irregular masslike density. 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 Prominent right-sided retroperitoneal right iliac chain lymph nodes measuring up to 1.7 cm in short a xis which are most likely neoplastic. Descending Colon and sigmoid diverticulosis with questionable minimal sigmoid diverticulitis. Mild wall thickening of the distal esophagus with mild wall thickening of the stomach which may be du e to inadequate distention which esophagitis and gastritis respectively not excluded. Moderate right with small left-sided pleural effusion and innumerable metastatic pulmonary nodules ov er the lung bases. Enlarged heterogeneous prostate. Recommend correlation with PSA. Cholelithiasis with no evidence of acute cholecystitis.
[2024-07-27] MEDS: MUPIROCIN 2% OINT 15gm or 22gm TOP SCH (22:17)
[2024-07-28] VITALS (20 sets, daily range): BP systolic 89–168; BP diastolic 36–59; PULSE 66–102; RESP 14–18; TEMP 97.4–98.1; O2SAT 89–97
[2024-07-28 08:47] LABS: Anion Gap 13 (5-15); Chloride 106 mmol/L (98-107); Sodium 137 mmol/L (136-145)
[2024-07-28 08:53] LABS: BUN/Creatinine Ratio 16.2 (10.0-20.0); Blood Urea Nitrogen 12 mg/dL (9-23)
[2024-07-28 08:56] LABS: Calcium 8.7 mg/dL (8.7-10.4); Carbon Dioxide 18 mmol/L (20-31); Glucose 110 mg/dL (74-106)
[2024-07-28 11:04] LABS: Basophils # (auto) 0.1 10 ^3/uL (0-0.2); Basophils % (auto) 0.5 % (0.0-2.0); Eosinophils # (auto) 0.1 10 ^3/uL (0-0.8); Eosinophils % (auto) 0.7 % (0.0-7.0); Hematocrit 34.9 % (41.0-53.0); Hemoglobin 11.3 g/dL (13.5-17.5); Lymphocytes # (auto) 0.4 10 ^3/uL (0.4-5.4); Lymphocytes % (auto) 4.8 % (10.0-50.0); Mean Corpuscular Hgb Conc. 32.3 g/dL (32.0-36.0); Mean Corpuscular Volume 86.7 fL (80.0-100.0); Monocytes # (auto) 0.6 10 ^3/uL (0-1.3); Monocytes % (auto) 6.9 % (0.0-12.0); Neutrophils # (auto) 8.1 10 ^3/uL (1.6-8.6); Neutrophils % (auto) 87.1 % (37.0-80.0); Nucleated Red Blood Cells % 0.1 %; Platelet Count (auto) 264 10^3/uL (140-450); Red Blood Cells 4.02 10^6/uL (4.5-5.90); Red Cell Distribution Width 16.3 % (11.8-14.3); White Blood Cell 9.3 10^3/uL (4.4-10.8)
--- NOTE | 2024-07-28 11:48 | DVHPN2 ---
Subjective Seen and examined at bedside. Patient is on 3L nasal cannula oxygen. For biopsy on Tuesday. Encouraged out of bed to ambulate. Changes from previous H/P or p: No Changes Objective Vitals Vital Signs Date Time Temp Pulse Resp B/P (MAP) Pulse Ox O2 Delivery O2 Flow Rate FiO2 07/28/24 09:37 91 Nasal Cannula* 3 32 07/28/24 09:10 100/58 07/28/24 09:00 97.4 78 16 97.4 Intake/Output Intake and Output 07/28/24 07:00 Intake Total 1275 ml Output Total 350 ml Balance 925 ml Intake Oral 1225 ml IV Total 50 ml Output Urine Total 350 ml # Voids 3 # Bowel Movements 2 General Appearance: Alert, Oriented X3, Cooperative, No acute distress HEENT: Atraumatic Lungs: Clear to auscultation Cardiovascular: Regular rate, Normal S1, Normal S2 Abdomen: Normal bowel sounds, Soft Psych/Mental Status: Mental status NL Medications Current Medications Medications Dose Ordered Sig/Laurence Route Start Time Stop Time Status Last Admin Dose Admin Ceftriaxone Sodium 50 ml @ 100 mls/hr DAILY@09 IV 07/26/24 09:00 07/28/24 09:10 100 MLS/HR Azithromycin 250 ml @ 125 mls/hr DAILY IV 07/26/24 10:00 07/27/24 11:21 125 MLS/HR Lisinopril 10 mg DAILY PO 07/26/24 10:00 07/26/24 11:36 10 MG Acetaminophen 500 mg Q4HPRN PRN PO 07/26/24 05:30 Acetaminophen/ Hydrocodone Bitart 1 tab Q4HPRN PRN PO 07/26/24 05:30 Morphine Sulfate 1 mg Q2HPRN PRN IV 07/26/24 05:30 Levothyroxine Sodium 137 mcg QAM@0600 PO 07/26/24 06:00 07/28/24 05:55 137 MCG Furosemide 40 mg BIDD IV 07/26/24 18:00 07/26/24 18:22 40 MG Albuterol 2.5 mg Q6HR NEB 07/27/24 00:00 07/28/24 06:28 2.5 MG Ipratropium [place] 0.5 mg Q6HR NEB 07/27/24 00:00 07/28/24 06:28 0.5 MG Mupirocin 1 applic BID TOP 07/27/24 22:00 07/27/24 22:17 1 APPLIC Laboratory Results Laboratory Tests 07/28/24 07:12 07/28/24 10:27 Chemistry Test 07/28/24 07:12 Calcium Level 8.7 mg/dL (8.7-10.4) Urinalysis Test 07/26/24 12:05 Urine Color Light-orange (Yellow) Urine Clarity Turbid (Clear) H Urine pH 6.0 (5.0-9.0) Urine Specific [place] > 1.035 (1.001-1.035) Urine Protein 1+ (Negative) H Urine Ketones 1+ (Negative) H Urine Blood 3+ /uL (Negative) H Urine Nitrite Negative (Negative) Urine Bilirubin Negative (Negative) Urine Urobilinogen Normal mg/dL (Negative) Urine Leukocyte Esterase Trace /uL (Negative) Urine RBC 480 /hpf (0 - 3) Urine Microscopic WBC 47 /HPF (0-3) H Urine Squamous Epithelial Cells Few /hpf (<5) Urine Bacteria None seen /hpf (None Seen) Urine Mucus Few (None Seen) Urine Glucose Normal mg/dL (Normal) Microbiology Microbiology Date/Time Source Procedure Growth Status 07/26/24 15:00 Sputum Gram Stain - Final Resulted 07/26/24 15:00 Sputum Respiratory Culture - Preliminary Resulted 07/25/24 19:08 Blood Blood Culture - Preliminary NO GROWTH AFTER 48 HOURS OF INCUBATION. Resulted Assessment/Plan Assessment/Plan Acute hypoxic respiratory failure Multiple pulmonary nodules, likely infectious. R/O malignancy Possible gram +/- bacterial pneumonia Bilateral pleural effusion, possibly infectious cause, R/O malignancy -patient has been feeling generalized weakness and fatigue in the past two weeks with chronic cough -initial chest x-ray showed multiple ill-defined nodules of various size widespread on bilateral lung gomes -CT scan of the chest showed multiple well-circumscribed chest nodules with bilateral mild pleural effusion -ordered sputum cultures -ordered coccidiomycosis antibody -ordered blood cultures -currently on room air -cont IV ceftriaxone -cont azithromycin -monitor oxygen saturation and titrate down as tolerated -Scheduled for pulm nodule biopsy on tuesday Possible acute on chronic diastolic heart failure -Bilateral lower extremity edema 2+ ext to mid tibias -BNP was 387.4 -EKG showed sinus rhythm with nonspecific T-waves inversion in leads III, AVF, V5, V6 -troponins were negative -ordered echocardiogram -cont furosemide 40 mg IV b.i.d. -monitor in's and out -Stop aspirin Hypothyroidism -TSH was 12.89, free T4 0.87 and total T3 0.42 -continue levothyroxine 137 mcg q.a.m. Mild normocytic normochromic anemia, likely anemia of chronic diseases. Rule out iron-deficiency -Hb 11.9 -order iron panel and ferritin -Stop aspirin Hx of CAD, CABGX4 -Stop ASA 81 mg daily due to biopsy on tuesday Moderate protein malnutrition - Dietary consult Goals of care discussed with the patient at bedside for >25min, FULL CODE Plan discussed with: Patient My Orders Orders - KYLEE SAMANO MD Procedure Category Date Status Time Azithromycin Tablet PHA 07/29/24 Transmitted (Zithromax Tablet) 10:00 Dietary Cons For NOURISH 07/28/24 Transmitted Malnutrition 11:46 Date of Service: Jul 28, 2024 Billing Provider: KYLEE SAMANO MD Common Visit Codes: [id number] INP/OBS CARE(MOD) KYLEE SAMANO MD Jul 28, 2024 11:48
[2024-07-28] MEDS: AZITHROMYCIN 250 MG TAB PO SCH (12:37)
[2024-07-28] MEDS: ENOXAPARIN SOD 40 MG/0.4 ML SYRINGE SC ONE (13:04)
[2024-07-29] VITALS (17 sets, daily range): BP systolic 88–117; BP diastolic 37–75; PULSE 52–115; RESP 15–20; TEMP 97.7–98.4; O2SAT 91–97
[2024-07-29] MEDS: ENOXAPARIN SOD 40 MG/0.4 ML SYRINGE SC SCH (08:40)
[2024-07-29 11:18] LABS: Anion Gap 7 (5-15); Carbon Dioxide 26 mmol/L (20-31); Chloride 104 mmol/L (98-107); Potassium 4.2 mmol/L (3.5-5.1); Sodium 137 mmol/L (136-145)
[2024-07-29 11:19] LABS: Calcium 9.2 mg/dL (8.7-10.4)
[2024-07-29 11:24] LABS: BUN/Creatinine Ratio 14.6 (10.0-20.0); Basophils # (auto) 0 10 ^3/uL (0-0.2); Basophils % (auto) 0.4 % (0.0-2.0); Blood Urea Nitrogen 13 mg/dL (9-23); Eosinophils # (auto) 0.1 10 ^3/uL (0-0.8); Eosinophils % (auto) 0.7 % (0.0-7.0); Hematocrit 32.2 % (41.0-53.0); Hemoglobin 10.8 g/dL (13.5-17.5); Lymphocytes # (auto) 0.6 10 ^3/uL (0.4-5.4); Lymphocytes % (auto) 6.3 % (10.0-50.0); Mean Corpuscular Hemoglobin 28.6 pg (28.0-32.0); Mean Corpuscular Hgb Conc. 33.6 g/dL (32.0-36.0); Mean Corpuscular Volume 85.2 fL (80.0-100.0); Monocytes # (auto) 0.5 10 ^3/uL (0-1.3); Monocytes % (auto) 6.2 % (0.0-12.0); Neutrophils # (auto) 7.6 10 ^3/uL (1.6-8.6); Neutrophils % (auto) 86.4 % (37.0-80.0); Platelet Count (auto) 271 10^3/uL (140-450); Red Blood Cells 3.77 10^6/uL (4.5-5.90); Red Cell Distribution Width 16.1 % (11.8-14.3); White Blood Cell 8.7 10^3/uL (4.4-10.8)
[2024-07-29 11:50] LABS: Glucose 172 mg/dL (74-106)
--- NOTE | 2024-07-29 16:24 | DVHPNRES ---
Progress Note Date Seen: Jul 29, 2024 Resident Creating Document: FLORY VENEGAS RESIDENT Has the PT tested + for MRSA If YES, has PT been informed?: No Medical Necessity Reason Pt with a Central, PICC or Fol: No Subjective Review of Systems This is a 78-year-old male with past medical history of CABG x4, hypothyroidism, hypertension, who presented to the ED with chief complaint of generalized weakness, feeling tired productive cough for the past two weeks. The patient states that has not been feeling himself in the past two weeks, with increased fatigue and that his family members have also noticed it him strange. Upon admission, the patient denied shortness of breath, chest pain, abdominal tenderness, weight loss, fever/chills, night sweats or any other symptoms at this time. The patient reports a previous travels to [place] in March but no recent travels outside the country or any sick contacts. On admission patient was tachypneic and slightly hypoxic requiring oxygen through nasal cannula. Initial chest x-ray was performed showing multiple ill-defined nodules of various sizes. We performed a CT scan of the chest which showed multiple well- circumscribed chest nodules with mild bilateral pleural effusion. Patient will be admitted for further assessment and management. Patient seen and examined at bedside. Patient is alert and oriented in person, place and time is currently hemodynamically stable on 2 L of oxygen through nasal cannula. Aspirin was stopped on Tuesday and patient is due to pulmonary nodule biopsy tomorrow a.m. on 07/30/2024. We will continue IV antibiotics at this time and hold any antifungal therapy at this point since we are still waiting for Coccidioides antibodies. Patient denies any additional symptoms at this time such as fever/chills, chest pain or shortness of breath. ROS Constitutional: Reports weakness and fatigue. Denies weight loss, fever and chills. HEENT: Denies changes in vision and hearing. Respiratory: Denies shortness of breath and cough Cardiovascular: Denies chest discomfort or palpitations GI: Denies abdominal pain, nausea, vomiting and diarrhea. : Denies dysuria and urinary frequency. Musculoskeletal: Denies myalgias and joint pain Skin: Denies rash and pruritus. Neurological: Denies dizziness, headache, vision or hearing problems Objective vital signs Vital Sign Date Time Temp Pulse Resp B/P (MAP) Pulse Ox O2 Delivery O2 Flow Rate FiO2 4/13/25 13:00 97.7 97 15 100/46 (64) 92 97.7 07/29/24 12:05 Nasal Cannula 2.0 07/29/24 12:05 28 Total Intake and Output 07/28/24 07/28/24 07/29/24 15:00 23:00 07:00 Intake Total 220 ml 590 ml 800 ml Balance 220 ml 590 ml 800 ml medications Current Medications Medications Dose Ordered Sig/Laurence Route Start Time Stop Time Status Last Admin Dose Admin Ceftriaxone Sodium 50 ml @ 100 mls/hr DAILY@09 IV 07/26/24 09:00 07/29/24 08:39 100 MLS/HR Lisinopril 10 mg DAILY PO 07/26/24 10:00 07/26/24 11:36 10 MG Acetaminophen 500 mg Q4HPRN PRN PO 07/26/24 05:30 Acetaminophen/ Hydrocodone Bitart 1 tab Q4HPRN PRN PO 07/26/24 05:30 Morphine Sulfate 1 mg Q2HPRN PRN IV 07/26/24 05:30 Levothyroxine Sodium 137 mcg QAM@0600 PO 07/26/24 06:00 07/29/24 05:27 137 MCG Furosemide 40 mg BIDD IV 07/26/24 18:00 07/26/24 18:22 40 MG Albuterol 2.5 mg Q6HR NEB 07/27/24 00:00 07/29/24 12:05 2.5 MG Ipratropium [place] 0.5 mg Q6HR NEB 07/27/24 00:00 07/29/24 12:05 0.5 MG Mupirocin 1 applic BID TOP 07/27/24 22:00 07/29/24 08:41 1 APPLIC Azithromycin 250 mg DAILY PO 07/28/24 12:20 07/31/24 12:19 07/29/24 08:40 250 MG Enoxaparin Sodium 40 mg DAILY SC 07/29/24 10:00 Examination Physical Examination General: Patient alert and oriented in person, place and time. Patient following commands. HEENT: Normocephalic, atraumatic, moist mucous membranes Respiratory/pulmonary: There is decreased breath sounds bilateral lungs with very mild crackles, no wheezes present at this time. Currently on 2 L of oxygen through nasal cannula. Cardiovascular: Normal heart sounds S1 and S2 with no associated murmurs Abdomen: Abdomen nondistended, there is no pain to palpation in any of the abdominal quadrants, no palpable masses. Extremities: There is bilateral lower extremity edema 2+ extending to midtibia bilaterally Peripheral Pulses: 3+ Radial (R). 3+ Radial (L). 3+ Dorsalis pedis (R). 3+ Dorsalis pedis(L) Skin: No rashes or pruritus, there is no sacral edema present at this time. Neurological: Intact cranial nerves with no focal neurologic deficits laboratory and microbiology Laboratory Tests 07/29/24 10:44 Test 07/29/24 10:44 Range/Units Serum Glucose 172 H 74-106 mg/dL Microbiology Date/Time Source Procedure Growth Status 07/27/24 00:00 Toe Right (Third) Gram Stain Pending Resulted 07/27/24 00:00 Toe Right (Third) Wound Culture - Preliminary Resulted 07/26/24 15:00 Sputum Gram Stain - Final Complete 07/26/24 15:00 Sputum Respiratory Culture - Final Complete 07/25/24 19:08 Blood Blood Culture - Preliminary NO GROWTH AFTER 72 HOURS OF INCUBATION. Resulted Problem List/Assessment/Plan Problem List/Assessment/Plan Assessment/Plan Acute hypoxic respiratory failure Multiple pulmonary nodules, likely infectious. R/O malignancy Possible gram +/- bacterial pneumonia Bilateral pleural effusion, possibly infectious cause, R/O malignancy -patient has been feeling generalized weakness and fatigue in the past two weeks with chronic cough -initial chest x-ray showed multiple ill-defined nodules of various size widespread on bilateral lung gomes -CT scan of the chest showed multiple well-circumscribed chest nodules with bilateral mild pleural effusion -ordered sputum cultures -ordered coccidiomycosis antibody -ordered blood cultures -currently on 2 L of oxygen through nasal cannula -cont IV ceftriaxone -cont IV azithromycin -monitor oxygen saturation and titrate down as tolerated -Schedulef for pulm nodule biopsy on tuesday 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 -cont furosemide 40 mg IV b.i.d. -monitor in's and out -Stop aspirin Hypothyroidism -TSH was 12.89, free T4 0.87 and total T3 0.42 -continue levothyroxine 137 mcg q.a.m. Mild normocytic normochromic anemia, likely anemia of chronic diseases. Rule out iron-deficiency -Hb 11.9 -order iron panel and ferritin -Stop aspirin Hx of CAD, CABGX4 -Stop ASA 81 mg daily due to biopsy on tuesday Goals of care discussed with the patient at bedside for >25min, FULL CODE Plan discussed with Dr. Samano Plan discussed with: Patient My Orders My Orders Orders - FLORY VENEGAS Procedure Category Date Status Time Retail Marketing Coordinator ORDERS 07/29/24 Transmitted 11:14 Retail Marketing Coordinator ORDERS 07/29/24 Transmitted 11:14 Dietary Evaluation Review Comments: 1) Ensure Enlive 240ml BID 2) brandy 1 pk BID 3) Continue current plan of care Expected Outcomes/Goals: Pt will meet 75% estimated needs Fu 3-5 days Date of Service: Jul 29, 2024 Billing Provider: KYLEE SAMANO MD Common Visit Codes: [id number] INP/OBS CARE(MOD) FLORY VENEGAS RESIDENT Jul 29, 2024 16:24 KYLEE SAMANO MD Jul 30, 2024 18:20
[2024-07-30] VITALS (16 sets, daily range): BP systolic 90–113; BP diastolic 40–45; PULSE 58–104; RESP 14–18; TEMP 98–98.6; O2SAT 90–99
[2024-07-30] MEDS: ATORVASTATIN 20 MG TAB PO ONE (05:45)
[2024-07-30] MEDS: LEVALBUTEROL HCL 1.25 MG/3 ML NEB NEB SCH (06:39)
--- NOTE | 2024-07-30 07:41 | DVH ---
EXAM: XR Chest, 1 View CLINICAL INDICATION: SOB TECHNIQUE: Frontal view of the chest. COMPARISON: XY CHEST PORTABLE on DOS: 07/25/24 FINDINGS: LUNGS AND PLEURAL SPACES: Pulmonary congestion and edema. Pneumonia cannot be excluded. No pneumot horax. HEART: Unremarkable. No cardiomegaly. MEDIASTINUM: Unremarkable. Normal mediastinal contour. BONES/JOINTS: Unremarkable. No acute fracture. OTHER FINDINGS: . . . IMPRESSION: Pulmonary congestion and edema. Pneumonia cannot be excluded.
[2024-07-30] MEDS: fentaNYL CITRATE 100 MCG/2 ML VL IV ONE (07:45)
[2024-07-30] MEDS: MIDAZOLAM HCL 2MG/2ML 2ml VIAL (1mg/ml) IV ONE (07:45)
[2024-07-30] MEDS: LIDOCAINE 2%HCL (LOCAL ANESTH.) INJ 10ml MDV ONE (08:11)
--- NOTE | 2024-07-30 08:45 | ECG ---
[facility] Test Date: 2024-07-30 Test Time: 05:11:32 Pat Name: JAMIL INIGUEZ Department: Room: 0291T B Gender: M Vp Of Customer Experience Strategy: : 1945 Requested By: IRINA SALTER Order Number: [id number] Reading MD: Tiburcio Collins Measurements Intervals Rose Rate: 91 P: 73 MD: 135 QRS: 70 QRSD: 105 T: 47 QT: 395 QTc: 487 Interpretive Statements Sinus rhythm Probable left atrial enlargement Anteroseptal infarct, old Electronically Signed On 08-01-2024 20:33:30 PDT by Tiburcio Collins Please click the below link to view image of tracing.
--- NOTE | 2024-07-30 09:23 | DVHPNRES ---
Progress Note Date Seen: Jul 30, 2024 Resident Creating Document: FLORY VENEGAS RESIDENT Has the PT tested + for MRSA If YES, has PT been informed?: No Medical Necessity Reason Pt with a Central, PICC or Fol: No Subjective Review of Systems This is a 78-year-old male with past medical history of CABG x4, hypothyroidism, hypertension, who presented to the ED with chief complaint of generalized weakness, feeling tired productive cough for the past two weeks. The patient states that has not been feeling himself in the past two weeks, with increased fatigue and that his family members have also noticed it him strange. Upon admission, the patient denied shortness of breath, chest pain, abdominal tenderness, weight loss, fever/chills, night sweats or any other symptoms at this time. The patient reports a previous travels to [place] in March but no recent travels outside the country or any sick contacts. On admission patient was tachypneic and slightly hypoxic requiring oxygen through nasal cannula. Initial chest x-ray was performed showing multiple ill-defined nodules of various sizes. We performed a CT scan of the chest which showed multiple well- circumscribed chest nodules with mild bilateral pleural effusion. Patient will be admitted for further assessment and management. Patient seen and examined at bedside. Patient is currently on 4 L of oxygen through nasal cannula. Per production supervisor off shift nurse patient is currently desaturating on 2 L of oxygen uneven more when he tries to walk around. Patient was kept NPO for pulmonary nodule biopsy by interventional radiologist. Meanwhile, we will continue IV antibiotics and rest of medical management. The patient still reports feeling fatigued and weak but still is able to stand up, walk and eat by himself sitting in the chair. Patient denies shortness of breath, chest pain, abdominal pain, fever/chills or any other symptoms at this time. ROS Constitutional: Denies weight loss, fever and chills. HEENT: Denies changes in vision and hearing. Respiratory: Denies shortness of breath and cough Cardiovascular: Denies chest discomfort or palpitations GI: Denies abdominal pain, nausea, vomiting and diarrhea. : Denies dysuria and urinary frequency. Musculoskeletal: Denies myalgias and joint pain Skin: Denies rash and pruritus. Neurological: Denies dizziness, headache, vision or hearing problems Objective vital signs Vital Sign Date Time Temp Pulse Resp B/P (MAP) Pulse Ox O2 Delivery O2 Flow Rate FiO2 07/30/24 08:43 98.0 94 18 94/41 (58) 92 98.0 07/30/24 08:00 Nasal Cannula* 2 28 Total Intake and Output 07/29/24 07/29/24 07/30/24 15:00 23:00 07:00 Intake Total 1000 ml 300 ml Output Total 200 ml Balance 1000 ml 100 ml medications Current Medications Medications Dose Ordered Sig/Laurence Route Start Time Stop Time Status Last Admin Dose Admin Ceftriaxone Sodium 50 ml @ 100 mls/hr DAILY@09 IV 07/26/24 09:00 07/29/24 08:39 100 MLS/HR Lisinopril 10 mg DAILY PO 07/26/24 10:00 Hold 07/26/24 11:36 10 MG Acetaminophen 500 mg Q4HPRN PRN PO 07/26/24 05:30 Acetaminophen/ Hydrocodone Bitart 1 tab Q4HPRN PRN PO 07/26/24 05:30 Morphine Sulfate 1 mg Q2HPRN PRN IV 07/26/24 05:30 Levothyroxine Sodium 137 mcg QAM@0600 PO 07/26/24 06:00 07/30/24 07:06 137 MCG Furosemide 40 mg BIDD IV 07/26/24 18:00 07/26/24 18:22 40 MG Ipratropium [place] 0.5 mg Q6HR NEB 07/27/24 00:00 07/30/24 06:38 0.5 MG Mupirocin 1 applic BID TOP 07/27/24 22:00 07/29/24 20:52 1 APPLIC Azithromycin 250 mg DAILY PO 07/28/24 12:20 07/31/24 12:19 07/29/24 08:40 250 MG Enoxaparin Sodium 40 mg DAILY SC 07/29/24 10:00 Levalbuterol HCl 0.625 mg Q6HR NEB 07/30/24 06:00 Atorvastatin Calcium 40 mg HS PO 07/30/24 22:00 Examination Physical Examination General: Patient alert and oriented in person, place and time. Patient following commands. HEENT: Normocephalic, atraumatic, moist mucous membranes Respiratory/pulmonary: There is decreased breath sounds bilateral lungs with very mild crackles especially in the right lung base. no wheezes present at this time. Currently on 4 L of oxygen through nasal cannula. Cardiovascular: Normal heart sounds S1 and S2 with no associated murmurs Abdomen: Abdomen nondistended, there is no pain to palpation in any of the abdominal quadrants, no palpable masses. Extremities: There is bilateral lower extremity edema 2+ extending to midtibia bilaterally Peripheral Pulses: 3+ Radial (R). 3+ Radial (L). 3+ Dorsalis pedis (R). 3+ Dorsalis pedis(L) Skin: No rashes or pruritus, there is no sacral edema present at this time. Neurological: Intact cranial nerves with no focal neurologic deficits laboratory and microbiology Laboratory Tests 07/29/24 10:44 Test 07/29/24 10:44 Range/Units Serum Glucose 172 H 74-106 mg/dL Microbiology Date/Time Source Procedure Growth Status 07/27/24 00:00 Toe Right (Third) Gram Stain - Final Resulted 07/27/24 00:00 Toe Right (Third) Wound Culture - Preliminary Resulted 07/26/24 15:00 Sputum Gram Stain - Final Complete 07/26/24 15:00 Sputum Respiratory Culture - Final Complete 07/25/24 19:08 Blood Blood Culture - Preliminary NO GROWTH AFTER 72 HOURS OF INCUBATION. Resulted Problem List/Assessment/Plan Problem List/Assessment/Plan Assessment/Plan Acute hypoxic respiratory failure Multiple pulmonary nodules, likely infectious. R/O malignancy Possible gram +/- bacterial pneumonia Bilateral pleural effusion, possibly infectious cause, R/O malignancy -patient has been feeling generalized weakness and fatigue in the past two weeks with chronic cough -initial chest x-ray showed multiple ill-defined nodules of various size widespread on bilateral lung gomes -CT scan of the chest showed multiple well-circumscribed chest nodules with bilateral mild pleural effusion -ordered sputum cultures -ordered coccidiomycosis antibody -ordered blood cultures -currently on 4 L of oxygen through nasal cannula -cont IV ceftriaxone -cont IV azithromycin -monitor oxygen saturation and titrate down as tolerated -Scheduled for pulm nodule biopsy on today -Patient NPO until procedure is done, then back to current diet Possible acute on chronic systolic/diastolic heart failure -Bilateral lower extremity edema 2+ ext to mid tibias -BNP was 387.4 -EKG showed sinus rhythm with nonspecific T-waves inversion in leads III, AVF, V5, V6 -troponins were negative -ordered echocardiogram which showed an LVEF of 55% with normal valves, slight aortic sclerosis. -cont furosemide 40 mg IV b.i.d. -monitor in's and out -Stop aspirin Hypothyroidism -TSH was 12.89, free T4 0.87 and total T3 0.42 -continue levothyroxine 137 mcg q.a.m. Mild normocytic normochromic anemia, likely anemia of chronic diseases. Rule out iron-deficiency -Hb 11.9 -order iron panel and ferritin -Stop aspirin Hx of CAD, CABGX4 -Stop ASA 81 mg daily due to biopsy on tuesday Goals of care discussed with the patient at bedside for >25min, FULL CODE Plan discussed with Dr. Samano Plan discussed with: Patient My Orders My Orders Orders - FLORY VENEGAS Procedure Category Date Status Time Theater Projectionist ORDERS 07/29/24 Transmitted 11:14 Theater Projectionist ORDERS 07/29/24 Transmitted 11:14 * Nurse Emergency Room CONS 07/29/24 Transmitted Consult Npo (Nothing By DIET 07/30/24 Transmitted Mouth) Diet Breakfast Dietary Evaluation Review Comments: 1) Ensure Enlive 240ml BID 2) brandy 1 pk BID 3) Continue current plan of care Expected Outcomes/Goals: Pt will meet 75% estimated needs Fu 3-5 days Date of Service: Jul 30, 2024 Billing Provider: KYLEE SAMANO MD Common Visit Codes: [id number] INP/OBS CARE(MOD) FLORY VENEGAS RESIDENT Jul 30, 2024 09:23 KYLEE SAMANO MD Jul 30, 2024 18:29
--- NOTE | 2024-07-30 12:05 | DVH ---
EXAM: XY CHEST PORTABLE Indication: POST LUNG BIOPSY Technique: Single frontal view of the chest was obtained Comparison: XY CHEST XRAY 1 VIEW on DOS: 07/30/24, XY CHEST PORTABLE on DOS: 07/25/24 FINDINGS: Lines and Tubes: None Lungs: Multifocal nodular opacities in the bilateral lungs. Pleura: No effusion. No pneumothorax. Cardiomediastinal contours: Unremarkable Bones: No acute osseous abnormality. IMPRESSION: Multifocal nodular opacities in the bilateral lungs. No definite pneumothorax status post lung biopsy .
--- NOTE | 2024-07-30 14:43 | DVH ---
EXAM: XY CHEST PORTABLE Indication: POST LUNG BIOPSY Technique: Single frontal view of the chest was obtained Comparison: XY CHEST PORTABLE on DOS: 07/30/24, XY CHEST XRAY 1 VIEW on DOS: 07/30/24, XY CHEST PORTABL E on DOS: 07/25/24, XY CHEST PORTABLE on DOS: 07/30/24 FINDINGS: Lines and Tubes: None Lungs: Multifocal nodular opacities in the bilateral lungs. Pleura: No effusion. No pneumothorax. Cardiomediastinal contours: Unremarkable Bones: No acute osseous abnormality. IMPRESSION: Multifocal nodular opacities in the bilateral lungs. No definite pneumothorax status post lung biopsy .
[2024-07-30] MEDS: ATORVASTATIN 20 MG TAB PO SCH (22:34)
[2024-07-31] VITALS (18 sets, daily range): BP systolic 92–118; BP diastolic 40–65; PULSE 63–129; RESP 14–20; TEMP 98.1–98.7; O2SAT 87–98
[2024-07-31 01:06] LABS: Coccidioides CF Antibody <1:2 (<1:2)
--- NOTE | 2024-07-31 01:48 | DVH ---
CHEST RADIOGRAPH Indication: repeat xray for lung biopsy Technique: Single frontal view of the chest was obtained COMPARISON: XY CHEST PORTABLE on DOS: 07/30/24, XY CHEST PORTABLE on DOS: 07/30/24, XY CHEST XRAY 1 VIE W on DOS: 07/30/24, XY CHEST PORTABLE on DOS: 07/25/24 FINDINGS: Lines and Tubes: None Lungs: Stable multifocal nodular densities throughout both lungs. Pleura: No effusion. No pneumothorax. Cardiomediastinal contours: Unremarkable Bones: Unremarkable IMPRESSION: 1. Stable multifocal nodular densities throughout both lungs. No significant pneumothorax.
[2024-07-31] MEDS: SODIUM CHLORIDE 0.9% 500 ML IV ONE (06:27)
[2024-07-31 08:41] LABS: Basophils # (auto) 0.1 10 ^3/uL (0-0.2); Basophils % (auto) 0.4 % (0.0-2.0); Eosinophils # (auto) 0.1 10 ^3/uL (0-0.8); Eosinophils % (auto) 0.8 % (0.0-7.0); Hematocrit 34.8 % (41.0-53.0); Hemoglobin 11.8 g/dL (13.5-17.5); Lymphocytes # (auto) 0.8 10 ^3/uL (0.4-5.4); Lymphocytes % (auto) 6.9 % (10.0-50.0); Mean Corpuscular Hgb Conc. 33.9 g/dL (32.0-36.0); Mean Corpuscular Volume 85.3 fL (80.0-100.0); Monocytes % (auto) 8.5 % (0.0-12.0); Neutrophils # (auto) 10.1 10 ^3/uL (1.6-8.6); Neutrophils % (auto) 83.4 % (37.0-80.0); Platelet Count (auto) 277 10^3/uL (140-450); Red Blood Cells 4.07 10^6/uL (4.5-5.90); Red Cell Distribution Width 16.5 % (11.8-14.3); White Blood Cell 12.1 10^3/uL (4.4-10.8)
[2024-07-31 08:57] LABS: Alanine Aminotransferase 40 U/L (7-40); Alkaline Phosphatase 79 U/L (46-116); Anion Gap 10 (5-15); BUN/Creatinine Ratio 14.1 (10.0-20.0); Blood Urea Nitrogen 10 mg/dL (9-23); Calcium 9.1 mg/dL (8.7-10.4); Carbon Dioxide 23 mmol/L (20-31); Chloride 103 mmol/L (98-107); Potassium 3.7 mmol/L (3.5-5.1)
[2024-07-31 08:58] LABS: Albumin 2.9 g/dL (3.2-4.8); Aspartate Aminotransferase 58 U/L (13-40); Glucose 147 mg/dL (74-106); Sodium 136 mmol/L (136-145)
[2024-07-31] MEDS: FUROSEMIDE 40 MG/4 ML VIAL IV SCH (10:00)
[2024-07-31] MEDS: ITRACONAZOLE 100 MG CAP PO SCH (10:02)
--- NOTE | 2024-07-31 11:17 | DVH ---
Bilateral Chest Sonogram Date: 07/31/2024 10:21 AM Clinical history: r/o significant pleural effusion on right side Technique: Limited sonographic evaluation of the bilateral chest was performed to evaluate for pleur al effusion. Finding/Impression: Moderate right and small left pleural effusions.
--- NOTE | 2024-07-31 11:43 | DVHPNRES ---
Progress Note Date Seen: Jul 31, 2024 Resident Creating Document: FLORY VENEGAS RESIDENT Has the PT tested + for MRSA If YES, has PT been informed?: No Medical Necessity Reason Pt with a Central, PICC or Fol: No Subjective Review of Systems This is a 78-year-old male with past medical history of CABG x4, hypothyroidism, hypertension, who presented to the ED with chief complaint of generalized weakness, feeling tired productive cough for the past two weeks. The patient states that has not been feeling himself in the past two weeks, with increased fatigue and that his family members have also noticed it him strange. Upon admission, the patient denied shortness of breath, chest pain, abdominal tenderness, weight loss, fever/chills, night sweats or any other symptoms at this time. The patient reports a previous travels to [place] in March but no recent travels outside the country or any sick contacts. On admission patient was tachypneic and slightly hypoxic requiring oxygen through nasal cannula. Initial chest x-ray was performed showing multiple ill-defined nodules of various sizes. We performed a CT scan of the chest which showed multiple well- circumscribed chest nodules with mild bilateral pleural effusion. Patient will be admitted for further assessment and management. Patient seen and examined at bedside. Per maintenance mechanic 2nd shift team, they were called because the patient was desaturating and needed to be placed on simple mask at 8 L of oxygen. Patient had pulmonary nodule biopsy yesterday, chest x-ray was performed this morning and is showing worsening opacities in the right lower lobe and there could possible be a pleural effusion as well. We ordered chest ultrasound to quantify possible effusion. Patient is currently on simple mask at 8 L of oxygen. Coccidioides antibodies came back negative. WBCs going slightly elevated at 12.1. Patient is currently on hydrocodone azole 200 mg b.i.d., IV ceftriaxone, azithromycin. We will discuss case with pulmonology to determine if patient might benefit of possible bronchoscopy or not. Patient denies fever/chills, chest pain or any additional complaints. ROS Constitutional: Denies weight loss, fever and chills. HEENT: Denies changes in vision and hearing. Respiratory: Patient reports being very mildly shortness of breaths, denies cough Cardiovascular: Denies chest discomfort or palpitations GI: Denies abdominal pain, nausea, vomiting and diarrhea. : Denies dysuria and urinary frequency. Musculoskeletal: Denies myalgias and joint pain Skin: Denies rash and pruritus. Neurological: Denies dizziness, headache, vision or hearing problems Objective vital signs Vital Sign Date Time Temp Pulse Resp B/P (MAP) Pulse Ox O2 Delivery O2 Flow Rate FiO2 07/31/24 08:40 98.2 118 18 103/44 (63) 95 98.2 07/31/24 08:00 Simple Mask* 6 50 Total Intake and Output 07/30/24 07/30/24 07/31/24 15:00 23:00 07:00 Intake Total 900 ml 300 ml Output Total 500 ml 400 ml Balance 400 ml -100 ml medications Current Medications Medications Dose Ordered Sig/Laurence Route Start Time Stop Time Status Last Admin Dose Admin Ceftriaxone Sodium 50 ml @ 100 mls/hr DAILY@09 IV 07/26/24 09:00 07/31/24 10:02 100 MLS/HR Lisinopril 10 mg DAILY PO 07/26/24 10:00 Hold 07/26/24 11:36 10 MG Acetaminophen 500 mg Q4HPRN PRN PO 07/26/24 05:30 Acetaminophen/ Hydrocodone Bitart 1 tab Q4HPRN PRN PO 07/26/24 05:30 Morphine Sulfate 1 mg Q2HPRN PRN IV 07/26/24 05:30 Levothyroxine Sodium 137 mcg QAM@0600 PO 07/26/24 06:00 07/31/24 06:09 137 MCG Ipratropium [place] 0.5 mg Q6HR NEB 07/27/24 00:00 07/31/24 06:57 0.5 MG Mupirocin 1 applic BID TOP 07/27/24 22:00 07/30/24 22:43 1 APPLIC Azithromycin 250 mg DAILY PO 07/28/24 12:20 07/31/24 12:19 07/31/24 10:01 250 MG Enoxaparin Sodium 40 mg DAILY SC 07/29/24 10:00 07/30/24 09:47 40 MG Levalbuterol HCl 0.625 mg Q6HR NEB 07/30/24 06:00 07/31/24 06:58 0.625 MG Atorvastatin Calcium 40 mg HS PO 07/30/24 22:00 07/30/24 22:34 40 MG Itraconazole 200 mg Q12HR PO 07/31/24 10:00 07/31/24 10:02 200 MG Furosemide 40 mg DAILY IV 07/31/24 10:00 UNV Examination Physical Examination General: Patient alert and oriented in person, place and time. Patient following commands. HEENT: Normocephalic, atraumatic, moist mucous membranes Respiratory/pulmonary: There is decreased breath sounds that is more prominent in the right lower lung, left lung sounds grossly clear. no wheezes present at this time. Currently on 8 L of oxygen through simple mask. Cardiovascular: Normal heart sounds S1 and S2 with no associated murmurs Abdomen: Abdomen nondistended, there is no pain to palpation in any of the abdominal quadrants, no palpable masses. Extremities: There is very minimal lower extremity edema at this point. Peripheral Pulses: 3+ Radial (R). 3+ Radial (L). 3+ Dorsalis pedis (R). 3+ Dorsalis pedis(L) Skin: No rashes or pruritus, there is no sacral edema present at this time. Neurological: Intact cranial nerves with no focal neurologic deficits laboratory and microbiology Laboratory Tests 07/31/24 07:34 Test 07/31/24 07:34 Range/Units Serum Glucose 147 H 74-106 mg/dL Microbiology Date/Time Source Procedure Growth Status 07/27/24 00:00 Toe Right (Third) Gram Stain - Final Resulted 07/27/24 00:00 Toe Right (Third) Wound Culture - Preliminary Resulted 07/26/24 15:00 Sputum Gram Stain - Final Complete 07/26/24 15:00 Sputum Respiratory Culture - Final Complete 07/25/24 19:08 Blood Blood Culture - Final NO GROWTH AFTER 5 DAYS OF INCUBATION. Complete Problem List/Assessment/Plan Problem List/Assessment/Plan Assessment/Plan Acute hypoxic respiratory failure Multiple pulmonary nodules, likely infectious. R/O malignancy Possible gram +/- bacterial pneumonia Bilateral pleural effusion, possibly infectious cause, R/O malignancy -patient has been feeling generalized weakness and fatigue in the past two weeks with chronic cough -initial chest x-ray showed multiple ill-defined nodules of various size widespread on bilateral lung gomes -CT scan of the chest showed multiple well-circumscribed chest nodules with bilateral mild pleural effusion -ordered sputum cultures -ordered coccidiomycosis antibody which came back negative -ordered blood cultures -currently on 8 L of oxygen through simple mask -discontinue azithromycin and ceftriaxone -start IV meropenem and vancomycin -monitor oxygen saturation and titrate down as tolerated -patient had pulmonary nodules biopsy performed yesterday -consulted pulmonology for possible bronchoscopy Possible acute on chronic systolic/diastolic heart failure -Bilateral lower extremity edema 2+ ext to mid tibias -BNP was 387.4 -EKG showed sinus rhythm with nonspecific T-waves inversion in leads III, AVF, V5, V6 -troponins were negative -ordered echocardiogram which showed an LVEF of 55% with normal valves, slight aortic sclerosis. -cont furosemide 40 mg IV b.i.d. -monitor in's and out -Stop aspirin Hypothyroidism -TSH was 12.89, free T4 0.87 and total T3 0.42 -continue levothyroxine 137 mcg q.a.m. Mild normocytic normochromic anemia, likely anemia of chronic diseases. Rule out iron-deficiency -Hb 11.9 -order iron panel and ferritin -Stop aspirin Hx of CAD, CABGX4 -Stop ASA 81 mg daily due to biopsy on tuesday Goals of care discussed with the patient at bedside for >25min, FULL CODE Plan discussed with Dr. Samano Plan discussed with: Patient My Orders My Orders Orders - FLORY VENEGAS Procedure Category Date Status Time Cardiac DIET 07/30/24 Transmitted Diet-2gna,Lofat,Lochol Dinner * Software Project Engineer CONS 07/30/24 Transmitted Consult Itraconazole PHA 07/31/24 In Process (Sporanox) 10:00 Furosemide Injection PHA 07/31/24 Logged (Lasix Injection) 10:00 Chest Ultrasound US 07/31/24 Resulted 09:52 Dietary Evaluation Review Comments: 1) Ensure Enlive 240ml BID 2) brandy 1 pk BID 3) Continue current plan of care Expected Outcomes/Goals: Pt will meet 75% estimated needs Fu 3-5 days Date of Service: Jul 31, 2024 Billing Provider: KYLEE SAMANO MD Common Visit Codes: [id number] INP/OBS CARE(MOD) FLORY VENEGAS RESIDENT Jul 31, 2024 11:42 KYLEE SAMANO MD Jul 31, 2024 15:43
[2024-07-31] MEDS ORDERED: VANCOMYCIN PER PHARMACY 0 MG IV SCH (14:45)
[2024-07-31] MEDS: VANCOMYCIN 1GM/200ML PM 200 ML IV ONE (18:11)
[2024-07-31] MEDS: MEROPENEM 1GM IVPB 50 ML IV SCH (19:27)
--- NOTE | 2024-07-31 19:33 | DVHINCON2 ---
Date of service: Jul 31, [address] Jordan Reason for Consultation Acute hypoxic respiratory failure, pulmonary nodules, pneumonia, pleural effusions. History of Present Illness A 78-year-old man with past medical history of hypertension, CAD s/p CABG, and hypothyroidism who presented to the ED on 07/26/24 with a chief complaint of generalized weakness and productive cough for the past 2 weeks. Patient reports that he was doing alright and then developed worsening weakness, could not stay awake, lethargy has been gradually worsening for the past couple of weeks. He denied any shortness of breath, orthopnea or PND. Denied chest pain, abdominal or urinary symptoms. On arrival to the ER, patient was tachypneic and hypoxic, was started on nasal cannula oxygen supplementation. Chest x-ray showed bilateral pulmonary nodules. CT chest with contrast showed Innumerable well- circumscribed nodules. Patient was admitted for further care and pulmonary consultation is requested for evaluation and management due to the above findings. Review of Systems: 14-point review of systems negative unless otherwise noted above. Past Medical History: Hypertension, CAD s/p CABG, and hypothyroidism Past Surgical History: CABG Medications: Reviewed. Allergies: No known drug allergies. Family History: Lung disease in sister, details unknown. Otherwise unremarkable. Social History: Nonsmoker. No alcohol or illicit drug use. Family History: Patient reports no known family medical history. Allergies: Coded Allergies: NO KNOWN ALLERGIES (Unverified , 06/02/23) Home Meds Reported Medications Folic Acid (Folic Acid) 1 Mg Tab, 1 TAB PO DAILY for 90 Days, #90 07/26/24 Lisinopril (Lisinopril) 20 Mg Tab, 1 TAB PO DAILY for 90 Days, #90 07/26/24 Dronedarone Hydrochloride (Multaq) 400 Mg Tab, 1 TAB PO DAILY for 90 Days, #90 07/26/24 Atenolol (Atenolol) 25 Mg Tab, 0.5 TAB PO DAILY for 90 Days, #45 07/26/24 Atorvastatin Calcium (ATORVASTATIN CALCIUM) 40 Mg Tab, 1 TAB PO QPM for 10 Days, #10 07/26/24 Levothyroxine Sodium (Synthroid) 137 Mcg Tab, 1 TAB PO DAILY for 90 Days, #90 07/26/24 Mupirocin (Pseudomonas Fluores (Mupirocin) 2 % Oin, 1 APPLIC TOP TID for 20 Days, #30 07/26/24 Current Medications Current Medications Medications (Trade) Dose Ordered Sig/Laurence Route PRN Reason Start Time Stop Time Status Last Admin Atorvastatin Calcium (Lipitor) 40 mg HS PO 07/30/24 22:00 07/30/24 22:34 Itraconazole (Sporanox) 200 mg Q12HR PO 07/31/24 10:00 07/31/24 10:02 Furosemide (Lasix Injection) 40 mg DAILY IV 07/31/24 10:00 Meropenem 50 ml @ 17 mls/hr Q8H IV 07/31/24 18:00 Vancomycin HCl 0 ml @ 0 mls/hr UD IV 07/31/24 14:45 Vancomycin HCl 200 ml @ 200 mls/hr Q12H IV 08/01/24 06:00 Vital Signs Vital Signs Date Time Temp Pulse Resp B/P (MAP) Pulse Ox O2 Delivery O2 Flow Rate FiO2 07/31/24 19:10 94 Simple Mask* 6 50 07/31/24 19:09 99 18 07/31/24 12:35 98.3 98/65 (76) 98.3 Physical Exam Gen.: Patient lying in bed in no apparent distress. On supplemental oxygen. Head: Normocephalic, atraumatic. Eyes: EOMI/PERRLA. Ears: Normal hearing. Normal anatomy. Neck/trachea: Trachea midline, supple. Nose: Normal external anatomy. Mouth: Moist mucous membranes. Chest: Decreased air entry bilaterally. No wheezing or rhonchi. Cardiovascular: Positive S1, positive S2. Regular rate and rhythm. Abdomen: Positive bowel sounds in all 4 quadrants. Soft, non-tender, non- distended. : Deferred. Rectal: Deferred. Skin: Warm, dry. Intact. Extremities: 2+ radial pulses bilaterally. No lower extremity edema. Neuro: Awake, alert, oriented x3. No gross motor or sensory deficits. Cranial nerves II through XII intact. Gait not assessed. Labs/Diagnostic Data Labs Test 07/31/24 07:34 07/30/24 07:29 07/30/24 06:47 07/28/24 08:40 Range/Units White Blood Count 12.1 #H 4.4-10.8 10^3/uL Red Blood Count 4.07 L 4.5-5.90 10^6/uL Hemoglobin 11.8 L 13.5-17.5 g/dL Hematocrit 34.8 L 41.0-53.0 % Mean Corpuscular Volume 85.3 80.0-100.0 fL Mean Corpuscular Hemoglobin 29.0 28.0-32.0 pg Mean Corpuscular Hemoglobin Concent 33.9 32.0-36.0 g/dL Red Cell Distribution Width 16.5 H 11.8-14.3 % Platelet Count 277 140-450 10^3/uL Mean Platelet Volume 7.5 6.9-10.8 fL Neutrophils (%) (Auto) 83.4 H 37.0-80.0 % Lymphocytes (%) (Auto) 6.9 L 10.0-50.0 % Monocytes (%) (Auto) 8.5 0.0-12.0 % Eosinophils (%) (Auto) 0.8 0.0-7.0 % Basophils (%) (Auto) 0.4 0.0-2.0 % Neutrophils # (Auto) 10.1 H 1.6-8.6 10 ^3/uL Lymphocytes # (Auto) 0.8 0.4-5.4 10 ^3/uL Monocytes # (Auto) 1.0 0-1.3 10 ^3/uL Eosinophils # (Auto) 0.1 0-0.8 10 ^3/uL Basophils # (Auto) 0.1 0-0.2 10 ^3/uL Nucleated Red Blood Cells 0.0 % Sodium Level 136 136-145 mmol/L Potassium Level 3.7 3.5-5.1 mmol/L Chloride Level 103 98-107 mmol/L Carbon Dioxide Level 23 20-31 mmol/L Anion Gap 10 5-15 Blood Urea Nitrogen 10 9-23 mg/dL Creatinine 0.71 0.700-1.30 mg/dL Glomerular Filtration Rate Calc 95 >90 mL/min BUN/Creatinine Ratio 14.1 10.0-20.0 Serum Glucose 147 H 74-106 mg/dL Calcium Level 9.1 8.7-10.4 mg/dL Total Bilirubin 1.0 0.2-1.0 mg/dL Aspartate Amino Transferase (AST) 58 H 13-40 U/L Alanine Aminotransferase (ALT) 40 7-40 U/L Alkaline Phosphatase 79 46-116 U/L Total Protein 6.0 5.7-8.2 g/dL Albumin 2.9 L 3.2-4.8 g/dL Troponin I High Sensitivity 28 </=54 ng/L B-Type Natriuretic Peptide 237.12 0-100 pg/mL Thyroid Stimulating Hormone (TSH) 12.28 H 0.55-4.78 uIU/mL Free Thyroxine (T4) Calculated 1.02 0.89-1.76 ng/dL POC Glucose 117 H 70-106 mg/dl Test 07/27/24 05:13 07/26/24 15:25 07/26/24 12:05 07/26/24 12:00 Range/Units Prothrombin Time 11.9 H 9.3-11.8 sec Prothrombin Time INR 1.14 0.9-1.15 Activated Partial Thromboplast Time 31.0 24.5-34.5 SEC Vitamin B12 Level 1353 H 211-911 pg/mL Vitamin D 25-Hydroxy 42.5 30.0-100 ng/mL SARS-CoV-2 Antigen (Rapid) Negative NEGATIVE Urine Color Light-orange Yellow Urine Clarity Turbid H Clear Urine pH 6.0 5.0-9.0 Urine Specific Manley > 1.035 H 1.001-1.035 Urine Protein 1+ H Negative Urine Ketones 1+ H Negative Urine Blood 3+ H Negative /uL Urine Nitrite Negative Negative Urine Bilirubin Negative Negative Urine Urobilinogen Normal Negative mg/dL Urine Leukocyte Esterase Trace Negative /uL Urine RBC 480 0 - 3 /hpf Urine Microscopic WBC 47 H 0-3 /HPF Urine Squamous Epithelial Cells Few <5 /hpf Urine Bacteria None seen None Seen /hpf Urine Mucus Few None Seen Urine Glucose Normal Normal mg/dL Urine Opiates Screen Neg NEGATIVE Urine Fentanyl Screen Neg NEGATIVE Urine Barbiturates Screen Neg NEGATIVE Urine Phencyclidine Screen Neg NEGATIVE Urine Amphetamines Screen Neg NEGATIVE Urine Benzodiazepines Screen Neg NEGATIVE Urine Cocaine Screen Neg NEGATIVE Urine Cannabinoids Screen Neg NEGATIVE Influenza Type A Antigen Negative Negative Influenza Type B Antigen Negative Negative Test 07/26/24 06:14 07/25/24 23:20 07/25/24 19:08 Range/Units Magnesium Level 2.0 1.6-2.6 mg/dL Total Triiodothyronine (TT3) 0.42 L 0.60-1.81 ng/mL Coccidioides Antibody (Comp Fix) <1:2 <1:2 HIV (1&2) Antibody Negative Negative Blood Gas Specimen Type Arterial Blood Gas Sample Site Right radial Blood Gas Patient Temperature 37.0 Arterial Blood Date Drawn [id number] Arterial Blood pH 7.448 7.350-7.450 Arterial Blood Partial Pressure CO2 27.1 L 35.0-48.0 mmHg Arterial Blood Partial Pressure O2 65.6 L 83.0-108.0 mmHg Arterial Blood HCO3 18.3 L 21.0-28.0 mmol/L Arterial Blood Oxygen Saturation 91.4 L 94.0-98.0 % Arterial Blood Base Excess -4.4 L -2.0-3.0 mmol/L Arterial Blood Oxyhemoglobin 90.9 L 94.0-98.0 % Arterial Blood Carboxyhemoglobin 0.2 L 0.5-1.5 % Arterial Blood Methemoglobin 0.4 0.0-1.5 % Baldo Test Yes Blood Gas Total Hemoglobin 12.00 L 13.5-17.5 g/dL Blood Gas Liter Flow 2.00 Blood Gas Modality Nasal cannula FiO2 % 28.0 Specimen Drawn By David reyes Lactic Acid Level 1.6 0.4-2.0 mmol/L Microbiology Date/Time Source Procedure Growth Status 07/27/24 00:00 Toe Right (Third) Gram Stain - Final Complete 07/27/24 00:00 Toe Right (Third) Wound Culture - Final Complete 07/26/24 15:00 Sputum Gram Stain - Final Complete 07/26/24 15:00 Sputum Respiratory Culture - Final Complete 07/25/24 19:08 Blood Blood Culture - Final NO GROWTH AFTER 5 DAYS OF INCUBATION. Complete Assessment Impression: Acute hypoxic respiratory failure Dependence on supplemental oxygen Multiple pulmonary nodules, likely infectious. R/O malignancy Possible gram +/- bacterial pneumonia Bilateral pleural effusions, likely infectious. R/O malignancy Atelectasis Acute on chronic CHF Anemia Coronary artery disease, s/p CABG x4 Plan: Supplemental oxygen Titrate to keep O2 sats above 92%. Initial chest x-ray showed multiple ill-defined nodules of various size, widespread in bilateral lung gomes CT scan of the chest showed multiple well-circumscribed chest nodules with bilateral mild pleural effusions Patient is s/p biopsy of pulmonary nodules Continue bronchodilators. Continue antibiotics Incentive spirometry On statin Follow up Cardiology recommendations Monitor H&H Monitor renal function. Monitor electrolytes. Supplement as necessary. Monitor ins and outs. DVT prophylaxis. Prognosis: Poor given patient's multiple co-morbidities. Rest of plan per hospitalist and other consultants. Thank you Dr. Jordan for allowing me to participate in this patient's care. Further recommendations will depend on the patient's clinical course. Please do not hesitate to contact me if you have any questions or concerns. This medical document was created using an electronic medical record system with [employer] dictation system. Although these documentations are being carefully reviewed, there may still be some phonetic and typographical changes. The errors are purely typographical, due to imperfection on the software program, and do not reflect any compromise in the patient's medical care. Plan discussed with: Patient, Other (RN/Dr. Jordan) MARTY DAVIS MD Jul 31, 2024 19:33
[2024-08-01] VITALS (17 sets, daily range): BP systolic 86–115; BP diastolic 41–63; PULSE 81–108; RESP 16–20; TEMP 98.2–98.7; O2SAT 87–98
[2024-08-01] MEDS: MELATONIN 5 MG TAB PO SCH
[2024-08-01] MEDS: VANCOMYCIN 1GM/200ML PM 200 ML IV SCH (06:04)
[2024-08-01 07:39] LABS: Basophils # (auto) 0 10 ^3/uL (0-0.2); Basophils % (auto) 0.3 % (0.0-2.0); Eosinophils # (auto) 0.1 10 ^3/uL (0-0.8); Eosinophils % (auto) 0.9 % (0.0-7.0); Hematocrit 31.1 % (41.0-53.0); Hemoglobin 10.5 g/dL (13.5-17.5); Lymphocytes # (auto) 0.5 10 ^3/uL (0.4-5.4); Mean Corpuscular Hemoglobin 28.8 pg (28.0-32.0); Mean Corpuscular Hgb Conc. 33.9 g/dL (32.0-36.0); Mean Corpuscular Volume 85.1 fL (80.0-100.0); Monocytes # (auto) 0.8 10 ^3/uL (0-1.3); Monocytes % (auto) 8.3 % (0.0-12.0); Neutrophils # (auto) 8.1 10 ^3/uL (1.6-8.6); Neutrophils % (auto) 85.5 % (37.0-80.0); Platelet Count (auto) 245 10^3/uL (140-450); Red Blood Cells 3.65 10^6/uL (4.5-5.90); Red Cell Distribution Width 16.1 % (11.8-14.3); White Blood Cell 9.5 10^3/uL (4.4-10.8)
[2024-08-01 07:45] LABS: Anion Gap 8 (5-15); Carbon Dioxide 25 mmol/L (20-31); Chloride 101 mmol/L (98-107); Potassium 3.9 mmol/L (3.5-5.1)
[2024-08-01 07:46] LABS: Calcium 8.8 mg/dL (8.7-10.4)
[2024-08-01 07:51] LABS: BUN/Creatinine Ratio 14.9 (10.0-20.0); Blood Urea Nitrogen 10 mg/dL (9-23); Glucose 145 mg/dL (74-106); Sodium 134 mmol/L (136-145)
--- NOTE | 2024-08-01 10:07 | DVH ---
CHEST WITHOUT CONTRAST, HISTORY: LUNG BX PROCEDURE: Informed consent was obtained. The patient was placed supine on the CT scanner. A limited localization CT scan of the lung was obtained. The skin overlying the lesion was prepped with chlorhexidine which was allowed to dry and draped in sterile fashion. Time out was performed. The skin and soft tissues were infiltrated with Xylocaine, and . With intermittent CT guidance, a 19 gauge Temno outer coaxial guiding needle was advanced into the right lung nodule. The needle position was confirmed with CT scan. 2 core biopsies were obtained using Temno inner 20 gauge biopsy needle. The specimens were sent in formalin to pathology for analysis. A visceral blood patch was applied as the needle was withdrawn the needle was withdrawn, and post procedural CT obtained through the biopsy region. No immediate complication was identified was noted, and patient was transport to recovery in stable condition without respiratory distress. DLP = 1806 mGy-cm. FINDINGS: Limited CT scan demonstrates an approximately soft tissue nodule in the right upper lobe and the biopsy needle within the margin of the lung mass. No significant post biopsy hemorrhage or pneumothorax is noted IMPRESSION/PLAN: CT guided lung biopsy. Pathology pending. will follow up CXRs. Bedrest until cleared by IR following post-biopsy CXRs. ICENT CAMPBELL
--- NOTE | 2024-08-01 13:12 | DVHPNRES ---
Progress Note Date Seen: Aug 01, 2024 Resident Creating Document: FLORY VENEGAS RESIDENT Has the PT tested + for MRSA If YES, has PT been informed?: No Medical Necessity Reason Pt with a Central, PICC or Fol: No Subjective Review of Systems This is a 78-year-old male with past medical history of CABG x4, hypothyroidism, hypertension, who presented to the ED with chief complaint of generalized weakness, feeling tired productive cough for the past two weeks. The patient states that has not been feeling himself in the past two weeks, with increased fatigue and that his family members have also noticed it him strange. Upon admission, the patient denied shortness of breath, chest pain, abdominal tenderness, weight loss, fever/chills, night sweats or any other symptoms at this time. The patient reports a previous travels to [place] in March but no recent travels outside the country or any sick contacts. On admission patient was tachypneic and slightly hypoxic requiring oxygen through nasal cannula. Initial chest x-ray was performed showing multiple ill-defined nodules of various sizes. We performed a CT scan of the chest which showed multiple well- circumscribed chest nodules with mild bilateral pleural effusion. Patient will be admitted for further assessment and management. Patient seen and examined at bedside. Patient is currently alert and oriented in person, place and time. Patient is currently on simple mask recurrent 10 L of oxygen. Patient occasionally takes simple mask off while eating breakfast or lunch by himself and despite being saturating 86% without oxygen he denies shortness of breath. We consulted pulmonology for considering possible bronchoscopy or further management at this time. Meanwhile we will continue IV antibiotics with vancomycin and meropenem as well as itraconazole 200 mg q.12. Urine Rock was placed yesterday and there was bloody urine which might be traumatic. We will continue following up closely to see appearance of urine. Patient has no further complaints or concerns at this time. ROS Constitutional: Denies weight loss, fever and chills. HEENT: Denies changes in vision and hearing. Respiratory: Denies shortness of breath and cough Cardiovascular: Denies chest discomfort or palpitations GI: Denies abdominal pain, nausea, vomiting and diarrhea. : Denies dysuria and urinary frequency. Musculoskeletal: Denies myalgias and joint pain Skin: Denies rash and pruritus. Neurological: Denies dizziness, headache, vision or hearing problems Objective vital signs Vital Sign Date Time Temp Pulse Resp B/P (MAP) Pulse Ox O2 Delivery O2 Flow Rate FiO2 08/01/24 12:33 94 20 92 08/01/24 12:30 98.5 115/63 (80) 98.5 08/01/24 12:23 Nasal Cannula* 6 44 Total Intake and Output 07/31/24 07/31/24 08/01/24 15:00 23:00 07:00 Intake Total 854 ml 1040 ml 400 ml Output Total 200 ml 400 ml Balance 854 ml 840 ml 0 ml medications Current Medications Medications Dose Ordered Sig/Laurence Route Start Time Stop Time Status Last Admin Dose Admin Lisinopril 10 mg DAILY PO 07/26/24 10:00 Hold 07/26/24 11:36 10 MG Acetaminophen 500 mg Q4HPRN PRN PO 07/26/24 05:30 Acetaminophen/ Hydrocodone Bitart 1 tab Q4HPRN PRN PO 07/26/24 05:30 Morphine Sulfate 1 mg Q2HPRN PRN IV 07/26/24 05:30 Levothyroxine Sodium 137 mcg QAM@0600 PO 07/26/24 06:00 08/01/24 06:00 137 MCG Ipratropium Dilworth 0.5 mg Q6HR NEB 07/27/24 00:00 08/01/24 12:23 0.5 MG Mupirocin 1 applic BID TOP 07/27/24 22:00 08/01/24 09:24 1 APPLIC Enoxaparin Sodium 40 mg DAILY SC 07/29/24 10:00 08/01/24 09:24 40 MG Levalbuterol HCl 0.625 mg Q6HR NEB 07/30/24 06:00 08/01/24 12:23 0.625 MG Atorvastatin Calcium 40 mg HS PO 07/30/24 22:00 07/31/24 21:39 40 MG Itraconazole 200 mg Q12HR PO 07/31/24 10:00 07/31/24 21:39 200 MG Furosemide 40 mg DAILY IV 07/31/24 10:00 Meropenem 50 ml @ 17 mls/hr Q8H IV 07/31/24 18:00 08/01/24 09:23 17 MLS/HR Vancomycin HCl 0 ml @ 0 mls/hr UD IV 07/31/24 14:45 Vancomycin HCl 200 ml @ 200 mls/hr Q12H IV 08/01/24 06:00 08/01/24 06:04 200 MLS/HR Melatonin 5 mg HS PO 07/31/24 23:48 08/01/24 00:00 5 MG Examination Physical Examination General: Patient alert and oriented in person, place and time. Patient following commands. HEENT: Normocephalic, atraumatic, moist mucous membranes Respiratory/pulmonary: There is decreased breath sounds that is more prominent in the right lower lung, left lung sounds grossly clear. no wheezes present at this time. Currently on 10 L of oxygen through simple mask. Cardiovascular: Normal heart sounds S1 and S2 with no associated murmurs Abdomen: Abdomen nondistended, there is no pain to palpation in any of the abdominal quadrants, no palpable masses. Extremities: There is very minimal lower extremity edema at this point. Peripheral Pulses: 3+ Radial (R). 3+ Radial (L). 3+ Dorsalis pedis (R). 3+ Dorsalis pedis(L) Skin: No rashes or pruritus, there is no sacral edema present at this time. Neurological: Intact cranial nerves with no focal neurologic deficits laboratory and microbiology Laboratory Tests 08/01/24 06:54 Test 08/01/24 06:54 Range/Units Serum Glucose 145 H 74-106 mg/dL Microbiology Date/Time Source Procedure Growth Status 07/27/24 00:00 Toe Right (Third) Gram Stain - Final Complete 07/27/24 00:00 Toe Right (Third) Wound Culture - Final Complete 07/26/24 15:00 Sputum Gram Stain - Final Complete 07/26/24 15:00 Sputum Respiratory Culture - Final Complete 07/25/24 19:08 Blood Blood Culture - Final NO GROWTH AFTER 5 DAYS OF INCUBATION. Complete Problem List/Assessment/Plan Problem List/Assessment/Plan Assessment/Plan Acute hypoxic respiratory failure Multiple pulmonary nodules, likely infectious. R/O malignancy Possible gram +/- bacterial pneumonia Bilateral pleural effusion, possibly infectious cause, R/O malignancy -patient has been feeling generalized weakness and fatigue in the past two weeks with chronic cough -initial chest x-ray showed multiple ill-defined nodules of various size widespread on bilateral lung gomes -CT scan of the chest showed multiple well-circumscribed chest nodules with bilateral mild pleural effusion -ordered sputum cultures -ordered coccidiomycosis antibody which came back negative -ordered blood cultures -currently on 10 L of oxygen through simple mask -Continue IV meropenem and vancomycin -monitor oxygen saturation and titrate down as tolerated -patient had pulmonary nodules biopsy performed 07/29/24, pending results -consulted pulmonology for possible bronchoscopy Possible acute on chronic systolic/diastolic heart failure -Bilateral lower extremity edema 2+ ext to mid tibias -BNP was 387.4 -EKG showed sinus rhythm with nonspecific T-waves inversion in leads III, AVF, V5, V6 -troponins were negative -ordered echocardiogram which showed an LVEF of 55% with normal valves, slight aortic sclerosis. -cont furosemide 40 mg IV b.i.d. -monitor in's and out -Stop aspirin Hypothyroidism -TSH was 12.89, free T4 0.87 and total T3 0.42 -continue levothyroxine 137 mcg q.a.m. Mild normocytic normochromic anemia, likely anemia of chronic diseases. Rule out iron-deficiency -Hb 11.9 -order iron panel and ferritin -Stop aspirin Hx of CAD, CABGX4 -Stop ASA 81 mg daily due to biopsy on tuesday Goals of care discussed with the patient at bedside for >25min, FULL CODE Plan discussed with Dr. Gutierrez Plan discussed with: Patient My Orders My Orders Orders - FLORY VENEGAS Procedure Category Date Status Time Insert/Manage Urinary MALLORY 07/31/24 In Process Catheter 14:00 *Consult CONS 07/31/24 Transmitted / 14:29 Meropenem 1gm Ivpb PHA 07/31/24 In Process (Merrem 1gm/ Ns) 18:00 Vancomycin Per PHA 07/31/24 In Process Pharmacy 14:45 Vancomycin 1gm/200ml PHA 08/01/24 In Process Pm 06:00 Vancomycin,Trough LAB 08/02/24 Verified 05:00 Vancomycin Per MALLORY 08/02/24 In Process Pharmacy Protoc 05:00 Dietary Evaluation Review Comments: 1) Ensure Enlive 240ml BID 2) brandy 1 pk BID 3) Continue current plan of care Expected Outcomes/Goals: Pt will meet 75% estimated needs Fu 3-5 days Date of Service: Aug 01, 2024 Billing Provider: KYLEE GUTIERREZ MD Common Visit Codes: [id number] INP/OBS CARE(HIGH) FLORY VENEGAS RESIDENT Aug 01, 2024 13:12 KYLEE GUTIERREZ MD Aug 01, 2024 13:55
--- NOTE | 2024-08-01 18:14 | DVHNC2 ---
Chest Tube Indication: Effusion (1050cc was removed including fluid for analysis, supervised by Dr. Mendoza) Procedure: Sterile preparation Anesthetic: Lidocaine Site: R 5th intercostal space Drainage: Fluid Informed consent obtained: Yes Risks/benefits/alt described: Yes Date of Service: Aug 01, 2024 Billing Provider: KYLEE SAMANO MD Common Visit Codes: PROCEDURE ONLY Procedure Codes: [id number] W/PUNCT FLORY VENEGAS RESIDENT Aug 01, 2024 18:14 KYLEE SAMANO MD Aug 02, 2024 18:59
[2024-08-01 22:35] LABS: Body Fluid Red Blood Cells 6558 CUMM (0-2000); Body Fluid White Blood Cells 1876 CUMM (0-200)
--- NOTE | 2024-08-01 23:17 | DVHPN2 ---
Progress Note - Dictate Date Seen: Aug 01, 2024 Has the PT tested + for MRSA If YES, has PT been informed?: No Medical Necessity Reason Pt with a Central, PICC or Fol: Yes The following are medically ne: Calhoun Catheter Reason for calhoun catheter: Strict I&O Subjective Patient seen and examined at bedside. Remains on supplemental oxygen Overnight events reviewed. vital signs Vital Sign Date Time Temp Pulse Resp B/P (MAP) Pulse Ox O2 Delivery O2 Flow Rate FiO2 08/01/24 21:00 98.7 85 20 110/46 (67) 93 98.7 08/01/24 19:32 Nasal Cannula* 6 44 Total Intake and Output 07/31/24 07/31/24 08/01/24 15:00 23:00 07:00 Intake Total 854 ml 1040 ml 400 ml Output Total 200 ml 400 ml Balance 854 ml 840 ml 0 ml medications Current Medications Medications Dose Ordered Sig/Laurence Route Start Time Stop Time Status Last Admin Dose Admin Lisinopril 10 mg DAILY PO 07/26/24 10:00 Hold 07/26/24 11:36 10 MG Acetaminophen 500 mg Q4HPRN PRN PO 07/26/24 05:30 Acetaminophen/ Hydrocodone Bitart 1 tab Q4HPRN PRN PO 07/26/24 05:30 Morphine Sulfate 1 mg Q2HPRN PRN IV 07/26/24 05:30 Levothyroxine Sodium 137 mcg QAM@0600 PO 07/26/24 06:00 08/01/24 06:00 137 MCG Ipratropium Sidell 0.5 mg Q6HR NEB 07/27/24 00:00 08/01/24 19:32 0.5 MG Mupirocin 1 applic BID TOP 07/27/24 22:00 08/01/24 09:24 1 APPLIC Enoxaparin Sodium 40 mg DAILY SC 07/29/24 10:00 08/01/24 09:24 40 MG Levalbuterol HCl 0.625 mg Q6HR NEB 07/30/24 06:00 08/01/24 19:32 0.625 MG Atorvastatin Calcium 40 mg HS PO 07/30/24 22:00 08/01/24 21:32 40 MG Itraconazole 200 mg Q12HR PO 07/31/24 10:00 08/01/24 21:32 200 MG Furosemide 40 mg DAILY IV 07/31/24 10:00 Meropenem 50 ml @ 17 mls/hr Q8H IV 07/31/24 18:00 08/01/24 09:23 17 MLS/HR Vancomycin HCl 0 ml @ 0 mls/hr UD IV 07/31/24 14:45 Vancomycin HCl 200 ml @ 200 mls/hr Q12H IV 08/01/24 06:00 08/01/24 19:43 200 MLS/HR Melatonin 5 mg HS PO 07/31/24 23:48 08/01/24 21:32 5 MG objective Gen.: Patient lying in bed in no apparent distress. On supplemental oxygen. Head: Normocephalic, atraumatic. Eyes: EOMI/PERRLA. Ears: Normal hearing. Normal anatomy. Neck/trachea: Trachea midline, supple. Nose: Normal external anatomy. Mouth: Moist mucous membranes. Chest: Decreased air entry bilaterally. No wheezing or rhonchi. Cardiovascular: Positive S1, positive S2. Regular rate and rhythm. Abdomen: Positive bowel sounds in all 4 quadrants. Soft, non-tender, non- distended. : Deferred. Rectal: Deferred. Skin: Warm, dry. Intact. Extremities: 2+ radial pulses bilaterally. No lower extremity edema. Neuro: Awake, alert, oriented x3. No gross motor or sensory deficits. Cranial nerves II through XII intact. Gait not assessed. laboratory and microbiology Laboratory Tests 08/01/24 06:54 Test 08/01/24 06:54 Range/Units Serum Glucose 145 H 74-106 mg/dL Assessment/Plan Impression: Acute hypoxic respiratory failure Dependence on supplemental oxygen Multiple pulmonary nodules, likely infectious. R/O malignancy Possible gram +/- bacterial pneumonia Bilateral pleural effusions, likely infectious. R/O malignancy Atelectasis Acute on chronic CHF Anemia Coronary artery disease, s/p CABG x4 Events: Remains on supplemental oxygen Currently 10 LPM --> 6 LPM NC Improved O2 requirements Continue to taper O2 as tolerated S/p right thoracentesis with removal of 1050 mL belen fluid from right pleural space Please see separate procedure note for details Continue antibiotics Incentive spirometry Follow up pleural fluid cultures and cytology Head of bed elevation Aspiration precautions. Labs and imaging reviewed. Rest of plan as noted below. Plan: Supplemental oxygen Titrate to keep O2 sats above 92%. Initial chest x-ray showed multiple ill-defined nodules of various size, widespread in bilateral lung gomes CT scan of the chest showed multiple well-circumscribed chest nodules with bilateral mild pleural effusions Patient is s/p biopsy of pulmonary nodules Limited chest ultrasound demonstrated moderate right and small left pleural effusions. S/p right thoracentesis Continue bronchodilators. Continue antibiotics Incentive spirometry On statin Cardiology recommendations appreciated Monitor H&H Diurese to euvolemia Monitor renal function. Monitor electrolytes. Supplement as necessary. Monitor ins and outs. DVT prophylaxis. Prognosis: Poor given patient's multiple co-morbidities. Rest of plan per hospitalist and other consultants. Thank you Dr. Jordan for allowing me to participate in this patient's care. Further recommendations will depend on the patient's clinical course. Please do not hesitate to contact me if you have any questions or concerns. This medical document was created using an electronic medical record system with [employer] dictation system. Although these documentations are being carefully reviewed, there may still be some phonetic and typographical changes. The errors are purely typographical, due to imperfection on the software program, and do not reflect any compromise in the patient's medical care. Dietary Evaluation Review Comments: 1) Ensure Enlive 240ml BID 2) brandy 1 pk BID 3) Continue current plan of care Expected Outcomes/Goals: Pt will meet 75% estimated needs Fu 3-5 days Plan discussed with: Patient, Other (TOBI Brennan) MARTY DAVIS MD Aug 01, 2024 23:17
[2024-08-02] VITALS (18 sets, daily range): BP systolic 95–109; BP diastolic 38–61; PULSE 65–104; RESP 16–20; TEMP 97.6–98.2; O2SAT 88–98
--- NOTE | 2024-08-02 07:52 | DVH ---
EXAM: XR Chest, 1 View CLINICAL INDICATION: eval post R sided thora TECHNIQUE: Frontal view of the chest. COMPARISON: XY CHEST PORTABLE on DOS: 07/31/24, XY CHEST PORTABLE on DOS: 07/30/24, XY CHEST PORTABLE on DOS: 07/30/24, XY CHEST XRAY 1 VIEW on DOS: 07/30/24, XY CHEST PORTABLE on DOS: 07/25/24 FINDINGS: LUNGS AND PLEURAL SPACES: Interstitial and patchy airspace disease of both lungs, unchanged. No pn eumothorax. HEART: Unremarkable. No cardiomegaly. MEDIASTINUM: Unremarkable. Normal mediastinal contour. BONES/JOINTS: Unremarkable. No acute fracture. OTHER FINDINGS: . IMPRESSION: 1. No pneumothorax. 2. Interstitial and patchy airspace disease of both lungs, unchanged.
[2024-08-02 08:01] LABS: Basophils # (auto) 0 10 ^3/uL (0-0.2); Basophils % (auto) 0.4 % (0.0-2.0); Eosinophils # (auto) 0 10 ^3/uL (0-0.8); Eosinophils % (auto) 0.4 % (0.0-7.0); Hematocrit 33.2 % (41.0-53.0); Hemoglobin 10.7 g/dL (13.5-17.5); Lymphocytes # (auto) 0.4 10 ^3/uL (0.4-5.4); Lymphocytes % (auto) 3.4 % (10.0-50.0); Mean Corpuscular Hemoglobin 27.5 pg (28.0-32.0); Mean Corpuscular Hgb Conc. 32.2 g/dL (32.0-36.0); Mean Corpuscular Volume 85.3 fL (80.0-100.0); Monocytes # (auto) 0.8 10 ^3/uL (0-1.3); Monocytes % (auto) 6.9 % (0.0-12.0); Neutrophils # (auto) 9.9 10 ^3/uL (1.6-8.6); Neutrophils % (auto) 88.9 % (37.0-80.0); Platelet Count (auto) 257 10^3/uL (140-450); Red Blood Cells 3.89 10^6/uL (4.5-5.90); White Blood Cell 11.1 10^3/uL (4.4-10.8)
--- NOTE | 2024-08-02 08:09 | DVHPNRES ---
Progress Note Date Seen: Aug 02, 2024 Resident Creating Document: FLORY VENEGAS RESIDENT Has the PT tested + for MRSA If YES, has PT been informed?: No Medical Necessity Reason Pt with a Central, PICC or Fol: Yes The following are medically ne: Calhoun Catheter Reason for calhoun catheter: Strict I&O Subjective Review of Systems This is a 78-year-old male with past medical history of CABG x4, hypothyroidism, hypertension, who presented to the ED with chief complaint of generalized weakness, feeling tired productive cough for the past two weeks. The patient states that has not been feeling himself in the past two weeks, with increased fatigue and that his family members have also noticed it him strange. Upon admission, the patient denied shortness of breath, chest pain, abdominal tenderness, weight loss, fever/chills, night sweats or any other symptoms at this time. The patient reports a previous travels to [place] in March but no r ecent travels outside the country or any sick contacts. On admission patient was tachypneic and slightly hypoxic requiring oxygen through nasal cannula. Initial chest x-ray was performed showing multiple ill-defined nodules of various sizes. We performed a CT scan of the chest which showed multiple well- circumscribed chest nodules with mild bilateral pleural effusion. Patient will be admitted for further assessment and management. Patient seen and examined at bedside. Patient reports cough but denies shortness of breath or chest pain despite being on high requirements of oxygen through simple mask. Yesterday in the afternoon, we performed a bedside right- sided thoracentesis we will we removed 1050 cc from the right lung. Fluid was sent to pathology for analysis. Fluid LDH, glucose and protein are still pending. Patient is still requiring 8 L of oxygen through simple mask. Chest x-ray today showed no evidence of pneumothorax or any other complication post procedure. Bilateral pulmonary feels looks slightly worse compared to admission. Still pending pathology reports from pulmonary nodule biopsy. We will keep the patient on IV meropenem, vancomycin and itraconazole. Pulmonology is on board. We will continue current medical management. Yesterday, we had an extension discussion with the family at bedside regarding patient care and current plan. ROS Constitutional: Denies weight loss, fever and chills. HEENT: Denies changes in vision and hearing. Respiratory: Denies shortness of breath and cough Cardiovascular: Denies chest discomfort or palpitations GI: Denies abdominal pain, nausea, vomiting and diarrhea. : Denies dysuria and urinary frequency. Musculoskeletal: Denies myalgias and joint pain Skin: Denies rash and pruritus. Neurological: Denies dizziness, headache, vision or hearing problems Objective vital signs Vital Sign Date Time Temp Pulse Resp B/P (MAP) Pulse Ox O2 Delivery O2 Flow Rate FiO2 08/02/24 07:32 76 18 94 08/02/24 05:00 97.6 109/44 (65) 97.6 08/02/24 00:33 Simple Mask* 10 99 Total Intake and Output 08/01/24 08/01/24 08/02/24 15:00 23:00 07:00 Intake Total 354 ml 330 ml 150 ml Output Total 820 ml 350 ml Balance 354 ml -490 ml -200 ml medications Current Medications Medications Dose Ordered Sig/Laurence Route Start Time Stop Time Status Last Admin Dose Admin Lisinopril 10 mg DAILY PO 07/26/24 10:00 Hold 07/26/24 11:36 10 MG Acetaminophen 500 mg Q4HPRN PRN PO 07/26/24 05:30 Acetaminophen/ Hydrocodone Bitart 1 tab Q4HPRN PRN PO 07/26/24 05:30 Morphine Sulfate 1 mg Q2HPRN PRN IV 07/26/24 05:30 Levothyroxine Sodium 137 mcg QAM@0600 PO 07/26/24 06:00 08/02/24 06:01 137 MCG Ipratropium Parrish 0.5 mg Q6HR NEB 07/27/24 00:00 08/02/24 07:26 0.5 MG Mupirocin 1 applic BID TOP 07/27/24 22:00 08/01/24 09:24 1 APPLIC Enoxaparin Sodium 40 mg DAILY SC 07/29/24 10:00 08/01/24 09:24 40 MG Levalbuterol HCl 0.625 mg Q6HR NEB 07/30/24 06:00 08/02/24 07:26 0.625 MG Atorvastatin Calcium 40 mg HS PO 07/30/24 22:00 08/01/24 21:32 40 MG Itraconazole 200 mg Q12HR PO 07/31/24 10:00 08/01/24 21:32 200 MG Furosemide 40 mg DAILY IV 07/31/24 10:00 Meropenem 50 ml @ 17 mls/hr Q8H IV 07/31/24 18:00 08/02/24 02:03 17 MLS/HR Vancomycin HCl 0 ml @ 0 mls/hr UD IV 07/31/24 14:45 Vancomycin HCl 200 ml @ 200 mls/hr Q12H IV 08/01/24 06:00 08/02/24 06:01 200 MLS/HR Melatonin 5 mg HS PO 07/31/24 23:48 08/01/24 21:32 5 MG Examination Physical Examination General: Patient alert and oriented in person, place and time. Patient following commands. HEENT: Normocephalic, atraumatic, moist mucous membranes Respiratory/pulmonary: There is decreased breath sounds that is more prominent in the right lower lung, left lung sounds grossly clear. no wheezes present at t his time. Currently on 8 L of oxygen through simple mask. Cardiovascular: Normal heart sounds S1 and S2 with no associated murmurs Abdomen: Abdomen nondistended, there is no pain to palpation in any of the abdominal quadrants, no palpable masses. Extremities: There is very minimal lower extremity edema at this point. Peripheral Pulses: 3+ Radial (R). 3+ Radial (L). 3+ Dorsalis pedis (R). 3+ Dorsalis pedis(L) Skin: No rashes or pruritus, there is no sacral edema present at this time. Neurological: Intact cranial nerves with no focal neurologic deficits laboratory and microbiology Test 08/02/24 06:37 Range/Units Serum Glucose Pending Microbiology Date/Time Source Procedure Growth Status 07/27/24 00:00 Toe Right (Third) Gram Stain - Final Complete 07/27/24 00:00 Toe Right (Third) Wound Culture - Final Complete 07/26/24 15:00 Sputum Gram Stain - Final Complete 07/26/24 15:00 Sputum Respiratory Culture - Final Complete 07/25/24 19:08 Blood Blood Culture - Final NO GROWTH AFTER 5 DAYS OF INCUBATION. Complete Problem List/Assessment/Plan Problem List/Assessment/Plan Assessment/Plan Acute hypoxic respiratory failure Multiple pulmonary nodules, likely infectious. R/O malignancy Possible gram +/- bacterial pneumonia Bilateral pleural effusion, possibly infectious cause, R/O malignancy -patient has been feeling generalized weakness and fatigue in the past two weeks with chronic cough -initial chest x-ray showed multiple ill-defined nodules of various size widespread on bilateral lung gomes -CT scan of the chest showed multiple well-circumscribed chest nodules with bilateral mild pleural effusion -ordered sputum cultures -ordered coccidiomycosis antibody which came back negative -ordered blood cultures -currently on 8 L of oxygen through simple mask -Continue IV meropenem and vancomycin -monitor oxygen saturation and titrate down as tolerated -patient had pulmonary nodules biopsy performed 07/29/24, pending results -right-sided thoracentesis was performed at bedside yesterday, 1050 cc of pleural fluid was removed and sent to pathology. -still pending fluid analysis protein, LDH and gluteus Possible acute on chronic systolic/diastolic heart failure -Bilateral lower extremity edema 2+ ext to mid tibias -BNP was 387.4 -EKG showed sinus rhythm with nonspecific T-waves inversion in leads III, AVF, V5, V6 -troponins were negative -ordered echocardiogram which showed an LVEF of 55% with normal valves, slight aortic sclerosis. -cont furosemide 40 mg IV b.i.d. -monitor in's and out -Stop aspirin Hypothyroidism -TSH was 12.89, free T4 0.87 and total T3 0.42 -continue levothyroxine 137 mcg q.a.m. Mild normocytic normochromic anemia, likely anemia of chronic diseases. Rule out iron-deficiency -Hb 11.9 -order iron panel and ferritin -Stop aspirin Hx of CAD, CABGX4 -Stop ASA 81 mg daily due to biopsy on tuesday Goals of care discussed with the patient at bedside for >25min, FULL CODE Plan discussed with Dr. Gutierrez Plan discussed with: Patient, Daughter, Other My Orders My Orders Orders - FLORY VENEGAS RESIDENT Procedure Category Date Status Time Obtain Consent For: ORDERS 08/01/24 Transmitted 14:33 Obtain Consent For MALLORY 08/01/24 In Process Anesthesia 14:33 Communication Order ORDERS 08/01/24 Transmitted 14:35 Complete Blood Count LAB 08/02/24 In Process 04:00 Basic Metabolic Panel LAB 08/02/24 In Process 04:00 Chest Xray 1 View XY 08/02/24 Resulted 07:00 Dietary Evaluation Review Comments: 1) Ensure Enlive 240ml BID 2) brandy 1 pk BID 3) Continue current plan of care Expected Outcomes/Goals: Pt will meet 75% estimated needs Fu 3-5 days Date of Service: Aug 02, 2024 Billing Provider: KYLEE GUTIERREZ MD Common Visit Codes: [id number] INP/OBS CARE(MOD) FLORY VENEGAS RESIDENT Aug 02, 2024 08:09 KYLEE GUTIERREZ MD Aug 02, 2024 19:16
[2024-08-02 08:12] LABS: Anion Gap 9 (5-15); Carbon Dioxide 24 mmol/L (20-31); Chloride 101 mmol/L (98-107); Potassium 3.9 mmol/L (3.5-5.1)
[2024-08-02 08:13] LABS: Calcium 8.8 mg/dL (8.7-10.4); Sodium 134 mmol/L (136-145)
[2024-08-02 08:18] LABS: BUN/Creatinine Ratio 12.3 (10.0-20.0)
[2024-08-02 08:21] LABS: Blood Urea Nitrogen 8 mg/dL (9-23); Glucose 150 mg/dL (74-106)
--- NOTE | 2024-08-02 16:33 | DVHINCON2 ---
Date of service: Aug 02, [address] Gutierrez Reason for Consultation Cystoscopy History of Present Illness Patient has gross hematuria with indwelling Rock catheter and supra vesical mass on CAT scan: Irregular masslike density over the anterior superior urina ry bladder with extension from the anterior superior urinary bladder cephalad. Additional partially calcified lesion within the mid urinary bladder which appears to be connected to the irregular masslike density. 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 Patient is admitted for weakness and has an indwelling Rock catheter for urinary retention. 78 year old male presents to the ED with a chief complaint of generalized weakness onset 2 weeks. Patient states he has been experiencing generalized weakness as well as fatigue, increased sleeping, cough with occasional shortness of breath. Upon ED arrival, patient O2 sat was 88% on RA, placed on 2L O2. He has also been experiencing diarrhea for the past 2 days. PMHx HTN, HLD, thyroid. Denies chest pain, dizziness, nausea, vomiting, diarrhea, fevers, chills. No other symptoms or modifying factors present at this time. Chief Complaint: General Weakness Primary Care Provider: GEO Reviewed Notes: Medications, Allergies Allergies: Coded Allergies: NO KNOWN ALLERGIES (Unverified , 06/02/23) Home Meds Reported Medications Folic Acid (Folic Acid) 1 Mg Tab, 1 TAB PO DAILY for 90 Days, #90 07/26/24 Lisinopril (Lisinopril) 20 Mg Tab, 1 TAB PO DAILY for 90 Days, #90 07/26/24 Dronedarone Hydrochloride (Multaq) 400 Mg Tab, 1 TAB PO DAILY for 90 Days, #90 07/26/24 Atenolol (Atenolol) 25 Mg Tab, 0.5 TAB PO DAILY for 90 Days, #45 07/26/24 Atorvastatin Calcium (ATORVASTATIN CALCIUM) 40 Mg Tab, 1 TAB PO QPM for 10 Days, #10 07/26/24 Levothyroxine Sodium (Synthroid) 137 Mcg Tab, 1 TAB PO DAILY for 90 Days, #90 07/26/24 Mupirocin (Pseudomonas Fluores (Mupirocin) 2 % Oin, 1 APPLIC TOP TID for 20 Days, #30 07/26/24 Information Source: Patient Mode of Arrival: Ambulatory Severity: Moderate Timing: Weeks Duration: Since onset Prehospital treatment: None Vital Signs Vital Signs Date Time Temp Pulse Resp B/P (MAP) Pulse Ox O2 Delivery O2 Flow Rate FiO2 07/26/24 02:57 62 98 Room Air* 2 N/A Nasal Cannula* 07/26/24 02:55 98.2 16 112/54 (73) 98.2 Past Medical History High Lipids, HTN, Thyroid Past Surgical History CABG Family History: Patient reports no known family medical history. Allergies: Coded Allergies: NO KNOWN ALLERGIES (Unverified , 06/02/23) Home Meds Reported Medications Folic Acid (Folic Acid) 1 Mg Tab, 1 TAB PO DAILY for 90 Days, #90 07/26/24 Lisinopril (Lisinopril) 20 Mg Tab, 1 TAB PO DAILY for 90 Days, #90 07/26/24 Dronedarone Hydrochloride (Multaq) 400 Mg Tab, 1 TAB PO DAILY for 90 Days, #90 07/26/24 Atenolol (Atenolol) 25 Mg Tab, 0.5 TAB PO DAILY for 90 Days, #45 07/26/24 Atorvastatin Calcium (ATORVASTATIN CALCIUM) 40 Mg Tab, 1 TAB PO QPM for 10 Days, #10 07/26/24 Levothyroxine Sodium (Synthroid) 137 Mcg Tab, 1 TAB PO DAILY for 90 Days, #90 07/26/24 Mupirocin (Pseudomonas Fluores (Mupirocin) 2 % Oin, 1 APPLIC TOP TID for 20 Days, #30 07/26/24 Review of Systems REVIEW OF SYSTEMS: No fever, no chills, positive fatigue HEENT: No sore throat, no earache, no congestion, no neck pain. Cardiac: No chest pain. No palpitations. Lungs: Positive shortness of breath, positive cough. GI: No nausea, no vomiting, no diarrhea, no constipation, no abdominal pain : No dysuria, frequency, or urgency. No hematuria. Musculoskeletal: No joint pain , no joint swelling, no extremity edema. Skin: No rash, no itching. Neuro: No headache, no dizziness, positive generalized weakness Vital Signs Vital Signs Date Time Temp Pulse Resp B/P (MAP) Pulse Ox O2 Delivery O2 Flow Rate FiO2 08/02/24 13:37 89 18 108/56 (73) 91 08/02/24 12:35 97.9 97.9 08/02/24 11:48 Simple Mask* 8 60 Physical Exam Physical Exam General: Awake, alert and oriented. No acute distress. Skin: Skin in warm, dry and intact. Appropriate color for ethnicity. HEENT: The head is normocephalic and atraumatic. Conjunctivae are clear without exudates or hemorrhage. Sclera is non-icteric. EOM are intact. No signs of nystagmus. Eyelids are normal in appearance without swelling or lesions. Oral mucosa is pink and moist Neck: The neck is supple with normal range of motion. No JVD. Cardiac: Heart rate and rhythm are normal. No murmurs, gallops, or rubs are auscultated. Respiratory: No signs of respiratory distress. Lung sounds are clear in all lobes bilaterally without rales, rhonchi, or wheezes. Abdominal: Abdomen is soft, non-tender without distention. Bowel sounds are present and normoactive in all four quadrants. Extremities: Bilateral lower extremity edema Neurological: The patient is awake, alert and oriented to person, place, and time with normal speech. Speech is clear. There is no facial asymmetry. Psychiatric: Appropriate mood and affect. Good judgement and insight. Labs/Diagnostic Data Labs Test 08/02/24 06:37 08/01/24 16:25 07/31/24 07:34 07/30/24 07:29 Range/Units White Blood Count 11.1 H 4.4-10.8 10^3/uL Red Blood Count 3.89 L 4.5-5.90 10^6/uL Hemoglobin 10.7 L 13.5-17.5 g/dL Hematocrit 33.2 L 41.0-53.0 % Mean Corpuscular Volume 85.3 80.0-100.0 fL Mean Corpuscular Hemoglobin 27.5 L 28.0-32.0 pg Mean Corpuscular Hemoglobin Concent 32.2 32.0-36.0 g/dL Red Cell Distribution Width 16.0 H 11.8-14.3 % Platelet Count 257 140-450 10^3/uL Mean Platelet Volume 7.7 6.9-10.8 fL Neutrophils (%) (Auto) 88.9 H 37.0-80.0 % Lymphocytes (%) (Auto) 3.4 L 10.0-50.0 % Monocytes (%) (Auto) 6.9 0.0-12.0 % Eosinophils (%) (Auto) 0.4 0.0-7.0 % Basophils (%) (Auto) 0.4 0.0-2.0 % Neutrophils # (Auto) 9.9 H 1.6-8.6 10 ^3/uL Lymphocytes # (Auto) 0.4 0.4-5.4 10 ^3/uL Monocytes # (Auto) 0.8 0-1.3 10 ^3/uL Eosinophils # (Auto) 0 0-0.8 10 ^3/uL Basophils # (Auto) 0 0-0.2 10 ^3/uL Nucleated Red Blood Cells 0.0 % Sodium Level 134 L 136-145 mmol/L Potassium Level 3.9 3.5-5.1 mmol/L Chloride Level 101 98-107 mmol/L Carbon Dioxide Level 24 20-31 mmol/L Anion Gap 9 5-15 Blood Urea Nitrogen 8 L 9-23 mg/dL Creatinine 0.65 L 0.700-1.30 mg/dL Glomerular Filtration Rate Calc 97 >90 mL/min BUN/Creatinine Ratio 12.3 10.0-20.0 Serum Glucose 150 H 74-106 mg/dL Calcium Level 8.8 8.7-10.4 mg/dL Vancomycin Level Trough 37.0 *H 5-10 ug/mL Body Fluid Source Pleural fluid Body Fluid pH 8.0 Body Fluid WBC (Manual) 1876 H 0-200 CUMM Body Fluid RBC (Manual) 6558 H 0-2000 CUMM Body Fluid Mononuclear Cells 30 % Body Fluid Polymorphonuclear Cells 70 H 0-25 % Total Bilirubin 1.0 0.2-1.0 mg/dL Aspartate Amino Transferase (AST) 58 H 13-40 U/L Alanine Aminotransferase (ALT) 40 7-40 U/L Alkaline Phosphatase 79 46-116 U/L Total Protein 6.0 5.7-8.2 g/dL Albumin 2.9 L 3.2-4.8 g/dL Troponin I High Sensitivity 28 </=54 ng/L Test 07/30/24 06:47 07/28/24 08:40 07/27/24 05:13 07/26/24 15:25 Range/Units B-Type Natriuretic Peptide 237.12 0-100 pg/mL Thyroid Stimulating Hormone (TSH) 12.28 H 0.55-4.78 uIU/mL Free Thyroxine (T4) Calculated 1.02 0.89-1.76 ng/dL POC Glucose 117 H 70-106 mg/dl Prothrombin Time 11.9 H 9.3-11.8 sec Prothrombin Time INR 1.14 0.9-1.15 Activated Partial Thromboplast Time 31.0 24.5-34.5 SEC Vitamin B12 Level 1353 H 211-911 pg/mL Vitamin D 25-Hydroxy 42.5 30.0-100 ng/mL SARS-CoV-2 Antigen (Rapid) Negative NEGATIVE Test 07/26/24 12:05 07/26/24 12:00 07/26/24 06:14 07/25/24 23:20 Range/Units Urine Color Light-orange Yellow Urine Clarity Turbid H Clear Urine pH 6.0 5.0-9.0 Urine Specific [place] > 1.035 H 1.001-1.035 Urine Protein 1+ H Negative Urine Ketones 1+ H Negative Urine Blood 3+ H Negative /uL Urine Nitrite Negative Negative Urine Bilirubin Negative Negative Urine Urobilinogen Normal Negative mg/dL Urine Leukocyte Esterase Trace Negative /uL Urine RBC 480 0 - 3 /hpf Urine Microscopic WBC 47 H 0-3 /HPF Urine Squamous Epithelial Cells Few <5 /hpf Urine Bacteria None seen None Seen /hpf Urine Mucus Few None Seen Urine Glucose Normal Normal mg/dL Urine Opiates Screen Neg NEGATIVE Urine Fentanyl Screen Neg NEGATIVE Urine Barbiturates Screen Neg NEGATIVE Urine Phencyclidine Screen Neg NEGATIVE Urine Amphetamines Screen Neg NEGATIVE Urine Benzodiazepines Screen Neg NEGATIVE Urine Cocaine Screen Neg NEGATIVE Urine Cannabinoids Screen Neg NEGATIVE Influenza Type A Antigen Negative Negative Influenza Type B Antigen Negative Negative Magnesium Level 2.0 1.6-2.6 mg/dL Total Triiodothyronine (TT3) 0.42 L 0.60-1.81 ng/mL Coccidioides Antibody (Comp Fix) <1:2 <1:2 HIV (1&2) Antibody Negative Negative Blood Gas Specimen Type Arterial Blood Gas Sample Site Right radial Blood Gas Patient Temperature 37.0 Arterial Blood Date Drawn Arterial Blood pH 7.448 7.350-7.450 Arterial Blood Partial Pressure CO2 27.1 L 35.0-48.0 mmHg Arterial Blood Partial Pressure O2 65.6 L 83.0-108.0 mmHg Arterial Blood HCO3 18.3 L 21.0-28.0 mmol/L Arterial Blood Oxygen Saturation 91.4 L 94.0-98.0 % Arterial Blood Base Excess -4.4 L -2.0-3.0 mmol/L Arterial Blood Oxyhemoglobin 90.9 L 94.0-98.0 % Arterial Blood Carboxyhemoglobin 0.2 L 0.5-1.5 % Arterial Blood Methemoglobin 0.4 0.0-1.5 % Baldo Test Yes Blood Gas Total Hemoglobin 12.00 L 13.5-17.5 g/dL Blood Gas Liter Flow 2.00 Blood Gas Modality Nasal cannula FiO2 % 28.0 Specimen Drawn By Corporate Concierge nabeel reyes Test 07/25/24 19:08 Range/Units Lactic Acid Level 1.6 0.4-2.0 mmol/L Microbiology Date/Time Source Procedure Growth Status 08/01/24 16:25 Pleural Fluid Gram Stain - Final Resulted 08/01/24 16:25 Pleural Fluid Body Fluid Culture - Preliminary Resulted 07/27/24 00:00 Toe Right (Third) Gram Stain - Final Complete 07/27/24 00:00 Toe Right (Third) Wound Culture - Final Complete 07/26/24 15:00 Sputum Gram Stain - Final Complete 07/26/24 15:00 Sputum Respiratory Culture - Final Complete 07/25/24 19:08 Blood Blood Culture - Final NO GROWTH AFTER 5 DAYS OF INCUBATION. Complete PATIENT: JAMIL INIGUEZ ACCT: [id number] UNIT: [id number] : 1945 LOC: [facility] ROOM / BED: [address] [place] [address] AGE / SEX: 78 / M ADM STATUS: ADM IN SERVICE 1700 ORDERING PHYSICIAN: FLORY VENEGAS RESIDENT PROCEDURE(s): ABPLC - CT ABD PELVIS W CON-ORAL & IV REASON: R/O GI malignancy ORDER NUMBER(s): [id number], ACCESSION NUMBER(s): [id number] Exam: CT CT ABD PELVIS W CON-ORAL IV History: R/O GI malignancy Comparison Study: None available at time of dictation. TECHNIQUE: Multidetector CT of the abdomen and pelvis with IV contrast. Axial, coronal and sagittal multiplanar reformats were obtained from the axial data set by the technologist. Radiation Dose Information: CT Dose: CTDI volume is 12.68 mGy. Dose-length product is 625.36 mGy*cm FINDINGS: Moderate right with small left-sided pleural effusions and associated atelectasis. Innumerable nodular bilateral lung base lesions most consistent with metastasis. Partially visualized heart is unremarkable. Cholelithiasis no evidence of acute cholecystitis. Liver, spleen, pancreas and adrenal glands are unremarkable. Mild nonspecific bilateral perinephric fat stranding. Otherwise, kidneys and ureters unremarkable. Irregular masslike density of the anterior superior urinary bladder with the extensionfrom the anterior superior urinary bladder cephalad. There is additional 2.7 x 4.2 by 2.4 cm partially calcified mass over the midline urinary bladder which appears to be associated with the anterior superior urinary bladder mass. Mild fat stranding adjacent to the urinary bladder. Prostate is heterogeneous measuring 3.3 x 5.2 by 4.5 cm. Mild wall thickening of the distal esophagus with mild wall thickening of the stomach. Small bowel loops are unremarkable. Appendix is unremarkable. Large amount of fecal material within the ascending and transverse colons. Descending colon and Sigmoid diverticulosis questionable minimal fat stranding adjacent to the sigmoid. No evidence of intraperitoneal free air or free fluid. No evidence of aortic aneurysm or dissection. Heavy atherosclerotic calcification of the aorta and bilateral iliacs. Prominent right-sided retroperitoneal and iliac chain lymph nodes largest measuring up to 1.7 cm. Small fat containing right inguinal hernia. Minimal body wall edema. Tiny fat containing umbilical hernia. No destructive osseous lesions are noted. Diffuse demineralization. IMPRESSION: Irregular masslike density over the anterior superior urinary bladder with extension from the anterior superior urinary bladder cephalad. Additional partially calcified lesion within the mid urinary bladder which appears to be connected to the irregular masslike density. 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 Prominent right-sided retroperitoneal right iliac chain lymph nodes measuring up to 1.7 cm in short axis which are most likely neoplastic. Descending Colon and sigmoid diverticulosis with questionable minimal sigmoid diverticulitis. Mild wall thickening of the distal esophagus with mild wall thickening of the stomach which may be due to inadequate distention which esophagitis and gastritis respectively not excluded. Moderate right with small left-sided pleural effusion and innumerable metastatic pulmonary nodules over the lung bases. Enlarged heterogeneous prostate. Recommend correlation with PSA. Cholelithiasis with no evidence of acute cholecystitis. ATED BY: CHINA FREIRE DO DICTATED DATE/TIME: 07/27/241958 SIGNED BY: CHINA FREIRE DO SIGNED DATE/TIME: 07/27/241958 CC: Assessment Irregular masslike density over the anterior superior urinary bladder with extension from the anterior superior urinary bladder cephalad. Additional partially calcified lesion within the mid urinary bladder which appears to be connected to the irregular masslike density. Findings are consistent with u rinary bladder neoplasm. 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 BPH Gross hematuria Plan/Recommendation When medically cleared, cystoscopy with possible biopsy and fulguration under anesthesia Plan discussed with: Patient, Other FABRIZIO NOEL MD Aug 02, 2024 16:33
--- NOTE | 2024-08-02 20:03 | DVHINCON2 ---
Date of service: Aug 02, [address] Gutierrez Reason for Consultation Anemia abdominal pain nausea in a patient with chest nodules and respiratory failure History of Present Illness This 78-year-old male patient with a history of coronary artery bypass graft and and hypothyroidism presented to the emergency room with weakness and productive cough Patient had also anorexia nausea and was found to be anemic Denied any hematemesis or melena CT scan of the chest showed innumerable is a well-circumscribed nodules Patient is feeling better and able to eat food properly no no other acute GI problems or GI bleeding Past Medical History Coronary artery bypass graft and hypothyroidism Past Surgical History CABG Family History: Patient reports no known family medical history. Family History Noncontributory except for some lung disease Social History Denies smoking or drink Allergies: Coded Allergies: NO KNOWN ALLERGIES (Unverified , 06/02/23) Home Meds Reported Medications Folic Acid (Folic Acid) 1 Mg Tab, 1 TAB PO DAILY for 90 Days, #90 07/26/24 Lisinopril (Lisinopril) 20 Mg Tab, 1 TAB PO DAILY for 90 Days, #90 07/26/24 Dronedarone Hydrochloride (Multaq) 400 Mg Tab, 1 TAB PO DAILY for 90 Days, #90 07/26/24 Atenolol (Atenolol) 25 Mg Tab, 0.5 TAB PO DAILY for 90 Days, #45 07/26/24 Atorvastatin Calcium (ATORVASTATIN CALCIUM) 40 Mg Tab, 1 TAB PO QPM for 10 Days, #10 07/26/24 Levothyroxine Sodium (Synthroid) 137 Mcg Tab, 1 TAB PO DAILY for 90 Days, #90 07/26/24 Mupirocin (Pseudomonas Fluores (Mupirocin) 2 % Oin, 1 APPLIC TOP TID for 20 Days, #30 07/26/24 Review of Systems Noncontributory Vital Signs Vital Signs Date Time Temp Pulse Resp B/P (MAP) Pulse Ox O2 Delivery O2 Flow Rate FiO2 08/02/24 19:06 101 20 93 08/02/24 18:57 Simple Mask* 8 60 08/02/24 16:45 98.0 104/39 (60) 98.0 Physical Exam Moderately built and nourished male on oxygen slightly hypoxic HEENT examined unremarkable Lungs scattered rales Cardiovascular unremarkable Abdomen is soft no tenderness no rigidity no guarding No masses Labs/Diagnostic Data Labs Test 08/02/24 17:45 08/02/24 06:37 08/01/24 16:25 07/31/24 07:34 Range/Units Vancomycin Level Trough 18.8 H 5-10 ug/mL White Blood Count 11.1 H 4.4-10.8 10^3/uL Red Blood Count 3.89 L 4.5-5.90 10^6/uL Hemoglobin 10.7 L 13.5-17.5 g/dL Hematocrit 33.2 L 41.0-53.0 % Mean Corpuscular Volume 85.3 80.0-100.0 fL Mean Corpuscular Hemoglobin 27.5 L 28.0-32.0 pg Mean Corpuscular Hemoglobin Concent 32.2 32.0-36.0 g/dL Red Cell Distribution Width 16.0 H 11.8-14.3 % Platelet Count 257 140-450 10^3/uL Mean Platelet Volume 7.7 6.9-10.8 fL Neutrophils (%) (Auto) 88.9 H 37.0-80.0 % Lymphocytes (%) (Auto) 3.4 L 10.0-50.0 % Monocytes (%) (Auto) 6.9 0.0-12.0 % Eosinophils (%) (Auto) 0.4 0.0-7.0 % Basophils (%) (Auto) 0.4 0.0-2.0 % Neutrophils # (Auto) 9.9 H 1.6-8.6 10 ^3/uL Lymphocytes # (Auto) 0.4 0.4-5.4 10 ^3/uL Monocytes # (Auto) 0.8 0-1.3 10 ^3/uL Eosinophils # (Auto) 0 0-0.8 10 ^3/uL Basophils # (Auto) 0 0-0.2 10 ^3/uL Nucleated Red Blood Cells 0.0 % Sodium Level 134 L 136-145 mmol/L Potassium Level 3.9 3.5-5.1 mmol/L Chloride Level 101 98-107 mmol/L Carbon Dioxide Level 24 20-31 mmol/L Anion Gap 9 5-15 Blood Urea Nitrogen 8 L 9-23 mg/dL Creatinine 0.65 L 0.700-1.30 mg/dL Glomerular Filtration Rate Calc 97 >90 mL/min BUN/Creatinine Ratio 12.3 10.0-20.0 Serum Glucose 150 H 74-106 mg/dL Calcium Level 8.8 8.7-10.4 mg/dL Body Fluid Source Pleural fluid Body Fluid pH 8.0 Body Fluid WBC (Manual) 1876 H 0-200 CUMM Body Fluid RBC (Manual) 6558 H 0-2000 CUMM Body Fluid Mononuclear Cells 30 % Body Fluid Polymorphonuclear Cells 70 H 0-25 % Total Bilirubin 1.0 0.2-1.0 mg/dL Aspartate Amino Transferase (AST) 58 H 13-40 U/L Alanine Aminotransferase (ALT) 40 7-40 U/L Alkaline Phosphatase 79 46-116 U/L Total Protein 6.0 5.7-8.2 g/dL Albumin 2.9 L 3.2-4.8 g/dL Test 07/30/24 07:29 07/30/24 06:47 07/28/24 08:40 07/27/24 05:13 Range/Units Troponin I High Sensitivity 28 </=54 ng/L B-Type Natriuretic Peptide 237.12 0-100 pg/mL Thyroid Stimulating Hormone (TSH) 12.28 H 0.55-4.78 uIU/mL Free Thyroxine (T4) Calculated 1.02 0.89-1.76 ng/dL POC Glucose 117 H 70-106 mg/dl Prothrombin Time 11.9 H 9.3-11.8 sec Prothrombin Time INR 1.14 0.9-1.15 Activated Partial Thromboplast Time 31.0 24.5-34.5 SEC Vitamin B12 Level 1353 H 211-911 pg/mL Vitamin D 25-Hydroxy 42.5 30.0-100 ng/mL Test 07/26/24 15:25 07/26/24 12:05 07/26/24 12:00 07/26/24 06:14 Range/Units SARS-CoV-2 Antigen (Rapid) Negative NEGATIVE Urine Color Light-orange Yellow Urine Clarity Turbid H Clear Urine pH 6.0 5.0-9.0 Urine Specific [place] > 1.035 H 1.001-1.035 Urine Protein 1+ H Negative Urine Ketones 1+ H Negative Urine Blood 3+ H Negative /uL Urine Nitrite Negative Negative Urine Bilirubin Negative Negative Urine Urobilinogen Normal Negative mg/dL Urine Leukocyte Esterase Trace Negative /uL Urine RBC 480 0 - 3 /hpf Urine Microscopic WBC 47 H 0-3 /HPF Urine Squamous Epithelial Cells Few <5 /hpf Urine Bacteria None seen None Seen /hpf Urine Mucus Few None Seen Urine Glucose Normal Normal mg/dL Urine Opiates Screen Neg NEGATIVE Urine Fentanyl Screen Neg NEGATIVE Urine Barbiturates Screen Neg NEGATIVE Urine Phencyclidine Screen Neg NEGATIVE Urine Amphetamines Screen Neg NEGATIVE Urine Benzodiazepines Screen Neg NEGATIVE Urine Cocaine Screen Neg NEGATIVE Urine Cannabinoids Screen Neg NEGATIVE Influenza Type A Antigen Negative Negative Influenza Type B Antigen Negative Negative Magnesium Level 2.0 1.6-2.6 mg/dL Total Triiodothyronine (TT3) 0.42 L 0.60-1.81 ng/mL Coccidioides Antibody (Comp Fix) <1:2 <1:2 HIV (1&2) Antibody Negative Negative Test 07/25/24 23:20 07/25/24 19:08 Range/Units Blood Gas Specimen Type Arterial Blood Gas Sample Site Right radial Blood Gas Patient Temperature 37.0 Arterial Blood Date Drawn [id number] Arterial Blood pH 7.448 7.350-7.450 Arterial Blood Partial Pressure CO2 27.1 L 35.0-48.0 mmHg Arterial Blood Partial Pressure O2 65.6 L 83.0-108.0 mmHg Arterial Blood HCO3 18.3 L 21.0-28.0 mmol/L Arterial Blood Oxygen Saturation 91.4 L 94.0-98.0 % Arterial Blood Base Excess -4.4 L -2.0-3.0 mmol/L Arterial Blood Oxyhemoglobin 90.9 L 94.0-98.0 % Arterial Blood Carboxyhemoglobin 0.2 L 0.5-1.5 % Arterial Blood Methemoglobin 0.4 0.0-1.5 % Baldo Test Yes Blood Gas Total Hemoglobin 12.00 L 13.5-17.5 g/dL Blood Gas Liter Flow 2.00 Blood Gas Modality Nasal cannula FiO2 % 28.0 Specimen Drawn By David reyes Lactic Acid Level 1.6 0.4-2.0 mmol/L Microbiology Date/Time Source Procedure Growth Status 08/01/24 16:25 Pleural Fluid Gram Stain - Final Resulted 08/01/24 16:25 Pleural Fluid Body Fluid Culture - Preliminary Resulted 07/27/24 00:00 Toe Right (Third) Gram Stain - Final Complete 07/27/24 00:00 Toe Right (Third) Wound Culture - Final Complete 07/26/24 15:00 Sputum Gram Stain - Final Complete 07/26/24 15:00 Sputum Respiratory Culture - Final Complete 07/25/24 19:08 Blood Blood Culture - Final NO GROWTH AFTER 5 DAYS OF INCUBATION. Complete Assessment 58-year-old with the complaints of shortness of breath history of hypothyroidism coronary artery bypass surgery has pulmonary nodules and some GI symptoms nonsp ecific with nausea anorexia anemia No dysphagia no hematemesis no melena Plan/Recommendation will recommend to watch closely as the setting for the GI symptoms may need a GI endoscopic workup as necessary Thank you Dr. Garcia Plan discussed with: Patient YULIYA GARCIA MD Aug 02, 2024 20:03
--- NOTE | 2024-08-02 20:38 | DVHPN2 ---
Progress Note - Dictate Date Seen: Aug 02, 2024 Has the PT tested + for MRSA If YES, has PT been informed?: No Medical Necessity Reason Pt with a Central, PICC or Fol: Yes The following are medically ne: Calhoun Catheter Reason for calhoun catheter: Strict I&O Subjective Patient seen and examined at bedside. Remains on supplemental oxygen Overnight events reviewed. vital signs Vital Sign Date Time Temp Pulse Resp B/P (MAP) Pulse Ox O2 Delivery O2 Flow Rate FiO2 08/02/24 20:00 90 20 98 Simple Mask* 8 60 08/02/24 16:45 98.0 104/39 (60) 98.0 Total Intake and Output 08/01/24 08/01/24 08/02/24 15:00 23:00 07:00 Intake Total 354 ml 330 ml 150 ml Output Total 820 ml 350 ml Balance 354 ml -490 ml -200 ml medications Current Medications Medications Dose Ordered Sig/Laurence Route Start Time Stop Time Status Last Admin Dose Admin Lisinopril 10 mg DAILY PO 07/26/24 10:00 Hold 07/26/24 11:36 10 MG Acetaminophen 500 mg Q4HPRN PRN PO 07/26/24 05:30 Acetaminophen/ Hydrocodone Bitart 1 tab Q4HPRN PRN PO 07/26/24 05:30 Morphine Sulfate 1 mg Q2HPRN PRN IV 07/26/24 05:30 Levothyroxine Sodium 137 mcg QAM@0600 PO 07/26/24 06:00 08/02/24 06:01 137 MCG Ipratropium [place] 0.5 mg Q6HR NEB 07/27/24 00:00 08/02/24 18:57 0.5 MG Mupirocin 1 applic BID TOP 07/27/24 22:00 08/02/24 09:31 1 APPLIC Enoxaparin Sodium 40 mg DAILY SC 07/29/24 10:00 08/02/24 09:31 40 MG Levalbuterol HCl 0.625 mg Q6HR NEB 07/30/24 06:00 08/02/24 18:58 0.625 MG Atorvastatin Calcium 40 mg HS PO 07/30/24 22:00 08/01/24 21:32 40 MG Itraconazole 200 mg Q12HR PO 07/31/24 10:00 08/02/24 09:31 200 MG Furosemide 40 mg DAILY IV 07/31/24 10:00 Meropenem 50 ml @ 17 mls/hr Q8H IV 07/31/24 18:00 08/02/24 18:43 17 MLS/HR Vancomycin HCl 0 ml @ 0 mls/hr UD IV 07/31/24 14:45 Melatonin 5 mg HS PO 07/31/24 23:48 08/01/24 21:32 5 MG Vancomycin HCl 200 ml @ 200 mls/hr Q12H IV 08/02/24 21:00 objective Gen.: Patient lying in bed in no apparent distress. On supplemental oxygen. Head: Normocephalic, atraumatic. Eyes: EOMI/PERRLA. Ears: Normal hearing. Normal anatomy. Neck/trachea: Trachea midline, supple. Nose: Normal external anatomy. Mouth: Moist mucous membranes. Chest: Decreased air entry bilaterally. No wheezing or rhonchi. Cardiovascular: Positive S1, positive S2. Regular rate and rhythm. Abdomen: Positive bowel sounds in all 4 quadrants. Soft, non-tender, non- distended. : Deferred. Rectal: Deferred. Skin: Warm, dry. Intact. Extremities: 2+ radial pulses bilaterally. No lower extremity edema. Neuro: Awake, alert, oriented x3. No gross motor or sensory deficits. Cranial nerves II through XII intact. Gait not assessed. laboratory and microbiology Laboratory Tests 08/02/24 06:37 Test 08/02/24 06:37 Range/Units Serum Glucose 150 H 74-106 mg/dL Assessment/Plan Impression: Acute hypoxic respiratory failure Dependence on supplemental oxygen Multiple pulmonary nodules, likely infectious. R/O malignancy Possible gram +/- bacterial pneumonia Bilateral pleural effusions, likely infectious. R/O malignancy Atelectasis Acute on chronic CHF Anemia Coronary artery disease, s/p CABG x4 Events: Remains on supplemental oxygen Currently on 8 LPM simple mask Taper O2 as tolerated Chest x-ray reviewed, demonstrates interstitial opacities. Interval reduction in right pleural effusion s/p right thora. Continue antibiotics/antifungal Continue bronchodilators Incentive spirometry Head of bed elevation Aspiration precautions. Pain control Avoid oversedation Diurese as tolerated w/ Lasix Monitor renal function. Monitor electrolytes. Supplement as necessary. Plan for cystoscopy by . CPAP at night with EPAP 8 cm H2O. S/p right thoracentesis on 08/01/24 with removal of 1050 mL belen fluid from right pleural space Follow up pleural fluid cultures and cytology Labs and imaging reviewed. Rest of plan as noted below. Plan: Supplemental oxygen Titrate to keep O2 sats above 92%. Initial chest x-ray showed multiple ill-defined nodules of various size, widespread in bilateral lung gomes CT scan of the chest showed multiple well-circumscribed chest nodules with bilateral mild pleural effusions Patient is s/p biopsy of pulmonary nodules Limited chest ultrasound demonstrated moderate right and small left pleural effusions. S/p right thoracentesis Continue bronchodilators. Continue antibiotics Incentive spirometry On statin Cardiology recommendations appreciated Monitor H&H Diurese to euvolemia Monitor renal function. Monitor electrolytes. Supplement as necessary. Monitor ins and outs. DVT prophylaxis. Prognosis: Poor given patient's multiple co-morbidities. Rest of plan per hospitalist and other consultants. Thank you Dr. Jordan for allowing me to participate in this patient's care. Further recommendations will depend on the patient's clinical course. Please do not hesitate to contact me if you have any questions or concerns. This medical document was created using an electronic medical record system with [employer] dictation system. Although these documentations are being carefully reviewed, there may still be some phonetic and typographical changes. The errors are purely typographical, due to imperfection on the software program, and do not reflect any compromise in the patient's medical care. Dietary Evaluation Review Comments: 1) Ensure Enlive 240ml BID 2) brandy 1 pk BID 3) Continue current plan of care Expected Outcomes/Goals: Pt will meet 75% estimated needs Fu 3-5 days Plan discussed with: Patient, Other (TOBI Ames) MARTY DAVIS MD Aug 02, 2024 20:38
[2024-08-02] MEDS: VANCOMYCIN 1GM/200ML PM 200 ML IV SCH (21:31)
[2024-08-03] VITALS (16 sets, daily range): BP systolic 94–115; BP diastolic 40–62; PULSE 60–112; RESP 16–22; TEMP 97.4–99.1; O2SAT 90–99
[2024-08-03 08:06] LABS: PSA Free 0.98 ng/mL; Prostate Specific Antigen 8.7 ng/mL (0.0-4.0)
[2024-08-03 08:15] LABS: Basophils # (auto) 0.1 10 ^3/uL (0-0.2); Basophils % (auto) 0.5 % (0.0-2.0); Eosinophils # (auto) 0 10 ^3/uL (0-0.8); Eosinophils % (auto) 0.3 % (0.0-7.0); Hematocrit 31.6 % (41.0-53.0); Hemoglobin 10.8 g/dL (13.5-17.5); Lymphocytes # (auto) 0.5 10 ^3/uL (0.4-5.4); Lymphocytes % (auto) 4.7 % (10.0-50.0); Mean Corpuscular Hemoglobin 28.5 pg (28.0-32.0); Mean Corpuscular Hgb Conc. 34.1 g/dL (32.0-36.0); Mean Corpuscular Volume 83.6 fL (80.0-100.0); Monocytes # (auto) 0.8 10 ^3/uL (0-1.3); Neutrophils # (auto) 8.8 10 ^3/uL (1.6-8.6); Neutrophils % (auto) 86.5 % (37.0-80.0); Platelet Count (auto) 252 10^3/uL (140-450); Red Blood Cells 3.78 10^6/uL (4.5-5.90); Red Cell Distribution Width 16.2 % (11.8-14.3); White Blood Cell 10.1 10^3/uL (4.4-10.8)
[2024-08-03 08:24] LABS: Anion Gap 8 (5-15); Carbon Dioxide 24 mmol/L (20-31); Chloride 102 mmol/L (98-107); Potassium 3.9 mmol/L (3.5-5.1)
[2024-08-03 08:25] LABS: Calcium 8.9 mg/dL (8.7-10.4); Sodium 134 mmol/L (136-145)
[2024-08-03 08:31] LABS: Blood Urea Nitrogen 13 mg/dL (9-23)
[2024-08-03 08:37] LABS: Glucose 123 mg/dL (74-106)
[2024-08-03] MEDS ORDERED: NALOXONE HCL 0.4 MG/ML VIAL IV PRN (12:15)
[2024-08-03] MEDS ORDERED: hydrALAZINE HCL 20 MG/ML VL IV PRN (12:15)
[2024-08-03] MEDS ORDERED: HYDROmorphone HCL 2 MG/ML VL/or syr IV PRN ×3 (12:15)
[2024-08-03] MEDS: ONDANSETRON HCL 4 MG/2 ML VIAL IV ONE (12:15)
[2024-08-03 13:07] LABS: Protein, Body Fluid 2.5 g/dL (.)
--- NOTE | 2024-08-03 13:09 | DVHPNRES ---
Progress Note Date Seen: Aug 03, 2024 Resident Creating Document: FLORY VENEGAS RESIDENT Has the PT tested + for MRSA If YES, has PT been informed?: No Medical Necessity Reason Pt with a Central, PICC or Fol: Yes The following are medically ne: Calhoun Catheter Reason for calhoun catheter: Strict I&O Subjective Review of Systems This is a 78-year-old male with past medical history of CABG x4, hypothyroidism, hypertension, who presented to the ED with chief complaint of generalized weakness, feeling tired productive cough for the past two weeks. The patient states that has not been feeling himself in the past two weeks, with increased fatigue and that his family members have also noticed it him strange. Upon admission, the patient denied shortness of breath, chest pain, abdominal tenderness, weight loss, fever/chills, night sweats or any other symptoms at this time. The patient reports a previous travels to [place] in March but no recent travels outside the country or any sick contacts. On admission patient was tachypneic and slightly hypoxic requiring oxygen through nasal cannula. Initial chest x-ray was performed showing multiple ill-defined nodules of various sizes. We performed a CT scan of the chest which showed multiple well- circumscribed chest nodules with mild bilateral pleural effusion. Patient will be admitted for further assessment and management. Patient seen and examined at bedside. Patient is alert and oriented in person, place and time. Patient is currently on 8 L of oxygen through simple mask. We consulted Urology for cystoscopy due to irregular calcified mass in the bladder with wall thickening which is suspicious with bladder cancer. On a CT scan also the distal portion of the esophagus wall was mildly thickened for which we consulted GI for possible EGD and biopsy. We spoke with Dr. Garcia which recommended barium swallow evaluation and possible EGD on Tuesday. We spent 40 minutes talking at bedside with the family regarding findings and plan of care. Today, patient will be taken to the OR for cystoscopy and biopsy. Meanwhile we will continue the patient on IV vancomycin, meropenem and itraconazole. Patient is hemodynamically stable and denies fever/chills, chest pain, shortness of breath, abdominal tenderness or any other symptoms at this time. ROS Constitutional: Denies weight loss, fever and chills. HEENT: Denies changes in vision and hearing. Respiratory: Denies shortness of breath and cough Cardiovascular: Denies chest discomfort or palpitations GI: Denies abdominal pain, nausea, vomiting and diarrhea. : Denies dysuria and urinary frequency. Musculoskeletal: Denies myalgias and joint pain Skin: Denies rash and pruritus. Neurological: Denies dizziness, headache, vision or hearing problems Objective vital signs Vital Sign Date Time Temp Pulse Resp B/P (MAP) Pulse Ox O2 Delivery O2 Flow Rate FiO2 08/03/24 11:58 85 16 91 08/03/24 11:52 Simple Mask* 8 60 08/03/24 09:00 98.0 104/42 (62) 98.0 Total Intake and Output 08/02/24 08/02/24 08/03/24 15:00 23:00 07:00 Intake Total 990 ml 800 ml 225 ml Output Total 450 ml 400 ml Balance 990 ml 350 ml -175 ml medications Current Medications Medications Dose Ordered Sig/Laurence Route Start Time Stop Time Status Last Admin Dose Admin Lisinopril 10 mg DAILY PO 07/26/24 10:00 Hold 07/26/24 11:36 10 MG Acetaminophen 500 mg Q4HPRN PRN PO 07/26/24 05:30 Acetaminophen/ Hydrocodone Bitart 1 tab Q4HPRN PRN PO 07/26/24 05:30 Morphine Sulfate 1 mg Q2HPRN PRN IV 07/26/24 05:30 Levothyroxine Sodium 137 mcg QAM@0600 PO 07/26/24 06:00 08/02/24 06:01 137 MCG Ipratropium [place] 0.5 mg Q6HR NEB 07/27/24 00:00 08/03/24 11:52 0.5 MG Mupirocin 1 applic BID TOP 07/27/24 22:00 08/03/24 08:51 1 APPLIC Enoxaparin Sodium 40 mg DAILY SC 07/29/24 10:00 08/02/24 09:31 40 MG Levalbuterol HCl 0.625 mg Q6HR NEB 07/30/24 06:00 08/03/24 11:52 0.625 MG Atorvastatin Calcium 40 mg HS PO 07/30/24 22:00 08/02/24 21:28 40 MG Itraconazole 200 mg Q12HR PO 07/31/24 10:00 08/03/24 08:50 200 MG Furosemide 40 mg DAILY IV 07/31/24 10:00 Meropenem 50 ml @ 17 mls/hr Q8H IV 07/31/24 18:00 08/03/24 10:40 17 MLS/HR Vancomycin HCl 0 ml @ 0 mls/hr UD IV 07/31/24 14:45 Melatonin 5 mg HS PO 07/31/24 23:48 08/02/24 21:28 5 MG Vancomycin HCl 200 ml @ 200 mls/hr Q12H IV 08/02/24 21:00 08/03/24 08:50 200 MLS/HR Hydralazine HCl 5 mg Q10M PRN IV 08/03/24 12:15 08/03/24 13:06 Hydromorphone HCl 0.5 mg Q10M PRN IV 08/03/24 12:15 08/03/24 12:56 Examination Physical Examination General: Patient alert and oriented in person, place and time. Patient following commands. HEENT: Normocephalic, atraumatic, moist mucous membranes Respiratory/pulmonary: There is decreased breath sounds that is more prominent in the right lower lung, left lung sounds grossly clear. no wheezes present at this time. Currently on 8 L of oxygen through simple mask. Cardiovascular: Normal heart sounds S1 and S2 with no associated murmurs Abdomen: Abdomen nondistended, there is no pain to palpation in any of the abdominal quadrants, no palpable masses. Extremities: There is very minimal lower extremity edema at this point. Peripheral Pulses: 3+ Radial (R). 3+ Radial (L). 3+ Dorsalis pedis (R). 3+ Dorsalis pedis(L) Skin: No rashes or pruritus, there is no sacral edema present at this time. Neurological: Intact cranial nerves with no focal neurologic deficits laboratory and microbiology Laboratory Tests 08/03/24 07:10 Test 08/03/24 07:10 Range/Units Serum Glucose 123 H 74-106 mg/dL Microbiology Date/Time Source Procedure Growth Status 08/01/24 16:25 Pleural Fluid Gram Stain - Final Resulted 08/01/24 16:25 Pleural Fluid Body Fluid Culture - Preliminary Resulted 07/27/24 00:00 Toe Right (Third) Gram Stain - Final Complete 07/27/24 00:00 Toe Right (Third) Wound Culture - Final Complete 07/26/24 15:00 Sputum Gram Stain - Final Complete 07/26/24 15:00 Sputum Respiratory Culture - Final Complete 07/25/24 19:08 Blood Blood Culture - Final NO GROWTH AFTER 5 DAYS OF INCUBATION. Complete Problem List/Assessment/Plan Problem List/Assessment/Plan Assessment/Plan Acute hypoxic respiratory failure Multiple pulmonary nodules, likely due to malignancy, R/O metastasis Possible gram +/- bacterial pneumonia Bilateral pleural effusion, possibly infectious cause, R/O malignancy -patient has been feeling generalized weakness and fatigue in the past two weeks with chronic cough -initial chest x-ray showed multiple ill-defined nodules of various size widespread on bilateral lung gomes -CT scan of the chest showed multiple well-circumscribed chest nodules with bilateral mild pleural effusion -ordered sputum cultures -ordered coccidiomycosis antibody which came back negative -ordered blood cultures -currently on 8 L of oxygen through simple mask -Continue IV meropenem and vancomycin -monitor oxygen saturation and titrate down as tolerated -patient had pulmonary nodules biopsy performed 07/29/24, pending results -right-sided thoracentesis was performed at bedside on 08/01/24, 1050 cc of pleural fluid was removed and sent to pathology. -still pending fluid analysis protein, LDH and gluteus Possible bladder Cancer Poss metastasis to the lungs -CT of abdomen and pelvis showed irregular calcified mass and thickening of the wall of the bladder which is concerning for malignancy -consulted Urology for cystoscopy which we will be performed today with biopsy Distal thickening of esophagus, R/O malignancy -GI on board will perform barium swallow eval -Porbable EGD on tuesday Possible acute on chronic systolic/diastolic heart failure -Bilateral lower extremity edema 2+ ext to mid tibias -BNP was 387.4 -EKG showed sinus rhythm with nonspecific T-waves inversion in leads III, AVF, V5, V6 -troponins were negative -ordered echocardiogram which showed an LVEF of 55% with normal valves, slight aortic sclerosis. -Decrease furosemide to 20 mg IV b.i.d. -monitor in's and out -Stop aspirin Hypothyroidism -TSH was 12.89, free T4 0.87 and total T3 0.42 -continue levothyroxine 137 mcg q.a.m. Mild normocytic normochromic anemia, likely anemia of chronic diseases. Rule out iron-deficiency -Hb 11.9 -order iron panel and ferritin -Stop aspirin Hx of CAD, CABGX4 -Stop ASA We have extensive discussion of >40min regarding patients care and plan Goals of care discussed with the patient at bedside for >25min, FULL CODE Plan discussed with Dr. Gutierrez critical care time 45 mins Plan discussed with: Patient, Daughter, Other My Orders My Orders Orders - FLORY VENEGAS Procedure Category Date Status Time Vancomycin 1gm/200ml PHA 08/02/24 In Process Pm 21:00 * [facility] [employer] CONS 08/03/24 Transmitted 07:34 Esophagus Barium XY 08/03/24 Logged Swallow 11:43 Dietary Evaluation Review Comments: 1) Ensure Enlive 240ml BID 2) brandy 1 pk BID 3) Continue current plan of care Expected Outcomes/Goals: Pt will meet 75% estimated needs Fu 3-5 days Date of Service: Aug 03, 2024 Billing Provider: KYLEE GUTIERREZ MD Common Visit Codes: 69904-[id number] CARE 30-74 MIN FLORY VENEGAS RESIDENT Aug 03, 2024 13:09 KYLEE GUTIERREZ MD Aug 03, 2024 14:18
[2024-08-03] MEDS: ALBUMIN 25% 50 ML IV ONE (13:30)
--- NOTE | 2024-08-03 14:42 | DVH ---
Procedure: CT CHEST WITHOUT CONTRAST Reason for study/Clinical History: REEVAL Comparison Study: CT dated 07/25/2024 TECHNIQUE: Multidetector CT of the chest was performed from the lung apices to the upper abdomen with out the use of intravenous contract. Axial, coronal and sagittal multiplanar reformats were performed . Radiation Dose Information: CT Dose: CTDI volume is 11.78 mGy. Dose-length product is 384.29 mGy*cm The dose indicators for CT are the volume Computed Tomography (CT) Dose Index (CTDIvol) and the Dose Length Product (DLP), and are measured in units of mGy and mGy-cm, respectively. These indicators are not patient dose, but values generated from the CT scanner acquisition factors. The report includes radiation exposure data for exposures received during this examination. FINDINGS: Lower neck: Unremarkable. Lungs: No focal consolidation. Innumerable bilateral pulmonary nodules. Heart/Vascular Structures: Cardiomegaly. Coronary artery calcifications. Vascular calcifications of t he aorta. Lymph Nodes: No adenopathy Pleura: Small bilateral pleural effusions. Musculoskeletal: No acute osseous abnormality. Multilevel degenerative changes of the spine. Median sternotomy. Soft tissues: Normal. Upper abdomen: Limited portions of the upper abdomen are unremarkable. IMPRESSION: No significant interval change. Radiation optimization: All CT scans at this facility use at least one of these dose optimization angelica hniques: automated exposure control mA and/or kV adjustment per patient size (includes targeted exam s where dose is matched to clinical indication) or iterative reconstruction.
[2024-08-03] MEDS: FUROSEMIDE 20 MG/2 ML VIAL IV SCH (18:08)
--- NOTE | 2024-08-03 20:07 | DVHPN2 ---
Progress Note - Dictate Date Seen: Aug 03, 2024 Has the PT tested + for MRSA If YES, has PT been informed?: Yes Medical Necessity Reason Pt with a Central, PICC or Fol: Yes The following are medically ne: Calhoun Catheter Reason for calhoun catheter: Strict I&O Subjective Patient is doing slightly better respiratory hendricks still complaints of weakness shortness of breath mild No dysphagia but heartburn Was supposed to get cystoscopy etc. done today but apparently was canceled because anesthesia felt patient is not stable for sedation vital signs Vital Sign Date Time Temp Pulse Resp B/P (MAP) Pulse Ox O2 Delivery O2 Flow Rate FiO2 08/03/24 19:08 112 20 95 08/03/24 18:59 Mask 8.0 08/03/24 18:59 60 08/03/24 18:08 104/44 08/03/24 16:46 99.1 99.1 Total Intake and Output 08/02/24 08/02/24 08/03/24 15:00 23:00 07:00 Intake Total 990 ml 800 ml 225 ml Output Total 450 ml 400 ml Balance 990 ml 350 ml -175 ml medications Current Medications Medications Dose Ordered Sig/Laurence Route Start Time Stop Time Status Last Admin Dose Admin Lisinopril 10 mg DAILY PO 07/26/24 10:00 Hold 07/26/24 11:36 10 MG Acetaminophen 500 mg Q4HPRN PRN PO 07/26/24 05:30 Acetaminophen/ Hydrocodone Bitart 1 tab Q4HPRN PRN PO 07/26/24 05:30 Morphine Sulfate 1 mg Q2HPRN PRN IV 07/26/24 05:30 Levothyroxine Sodium 137 mcg QAM@0600 PO 07/26/24 06:00 08/02/24 06:01 137 MCG Ipratropium [place] 0.5 mg Q6HR NEB 07/27/24 00:00 08/03/24 18:59 0.5 MG Mupirocin 1 applic BID TOP 07/27/24 22:00 08/03/24 08:51 1 APPLIC Enoxaparin Sodium 40 mg DAILY SC 07/29/24 10:00 08/02/24 09:31 40 MG Levalbuterol HCl 0.625 mg Q6HR NEB 07/30/24 06:00 08/03/24 18:59 0.625 MG Atorvastatin Calcium 40 mg HS PO 07/30/24 22:00 08/02/24 21:28 40 MG Itraconazole 200 mg Q12HR PO 07/31/24 10:00 08/03/24 08:50 200 MG Meropenem 50 ml @ 17 mls/hr Q8H IV 07/31/24 18:00 08/03/24 18:08 17 MLS/HR Vancomycin HCl 0 ml @ 0 mls/hr UD IV 07/31/24 14:45 Melatonin 5 mg HS PO 07/31/24 23:48 08/02/24 21:28 5 MG Vancomycin HCl 200 ml @ 200 mls/hr Q12H IV 08/02/24 21:00 08/03/24 08:50 200 MLS/HR Furosemide 20 mg BIDD IV 08/03/24 18:00 08/03/24 18:08 20 MG objective Abdomen is soft nontender CT scan had shown some mild thickening of the esophagus in the stomach and we will recommend a EGD evaluation if possible But patient is properly not stable for anesthesia at this time it as anesthesia recommended for about a week and then if better evaluate the area. In the meantime we will recommend to treat with PPIs and see Thank you Dr. Garcia laboratory and microbiology Laboratory Tests 08/03/24 07:10 Test 08/03/24 07:10 Range/Units Serum Glucose 123 H 74-106 mg/dL Assessment/Plan 58-year-old with the complaints of shortness of breath history of hypothyroidism coronary artery bypass surgery has pulmonary nodules and some GI symptoms nonspecific with nausea anorexia anemia No dysphagia no hematemesis no melena CT scan showed mild thickening of the distal esophagus and the stomach. We will recommend an EGD evaluation but patient is unstable as per anesthesia for any sedation and they wanted to recommend to wait for about a week We will recommend follow closely with PPIs and re-evaluate for EGD when more stable Thank you Dr. Garcia Dietary Evaluation Review Comments: 1) Ensure Enlive 240ml BID 2) brandy 1 pk BID 3) Continue current plan of care Expected Outcomes/Goals: Pt will meet 75% estimated needs Fu 3-5 days Plan discussed with: Patient YULIYA GARCIA MD Aug 03, 2024 20:07
[2024-08-04] VITALS (19 sets, daily range): BP systolic 98–115; BP diastolic 39–74; PULSE 74–109; RESP 14–20; TEMP 97.6–98.9; O2SAT 90–97
--- NOTE | 2024-08-04 04:35 | DVHPN2 ---
Progress Note - Dictate Date Seen: Aug 03, 2024 Has the PT tested + for MRSA If YES, has PT been informed?: Yes Medical Necessity Reason Pt with a Central, PICC or Fol: Yes The following are medically ne: Calhoun Catheter Reason for calhoun catheter: Strict I&O Subjective Patient seen and examined at bedside. Remains on supplemental oxygen Overnight events reviewed. vital signs Vital Sign Date Time Temp Pulse Resp B/P (MAP) Pulse Ox O2 Delivery O2 Flow Rate FiO2 08/04/24 00:15 86 18 93 08/04/24 00:07 Oxymizer 10 N/A 08/03/24 18:08 104/44 08/03/24 16:46 99.1 99.1 Total Intake and Output 08/03/24 08/03/24 08/04/24 15:00 23:00 07:00 Intake Total 0 ml Balance 0 ml medications Current Medications Medications Dose Ordered Sig/Laurence Route Start Time Stop Time Status Last Admin Dose Admin Lisinopril 10 mg DAILY PO 07/26/24 10:00 Hold 07/26/24 11:36 10 MG Acetaminophen 500 mg Q4HPRN PRN PO 07/26/24 05:30 Acetaminophen/ Hydrocodone Bitart 1 tab Q4HPRN PRN PO 07/26/24 05:30 Morphine Sulfate 1 mg Q2HPRN PRN IV 07/26/24 05:30 Levothyroxine Sodium 137 mcg QAM@0600 PO 07/26/24 06:00 08/02/24 06:01 137 MCG Ipratropium [place] 0.5 mg Q6HR NEB 07/27/24 00:00 08/04/24 00:07 0.5 MG Mupirocin 1 applic BID TOP 07/27/24 22:00 08/03/24 08:51 1 APPLIC Enoxaparin Sodium 40 mg DAILY SC 07/29/24 10:00 08/02/24 09:31 40 MG Levalbuterol HCl 0.625 mg Q6HR NEB 07/30/24 06:00 08/04/24 00:07 0.625 MG Atorvastatin Calcium 40 mg HS PO 07/30/24 22:00 08/03/24 21:03 40 MG Itraconazole 200 mg Q12HR PO 07/31/24 10:00 08/03/24 21:03 200 MG Meropenem 50 ml @ 17 mls/hr Q8H IV 07/31/24 18:00 08/04/24 01:48 17 MLS/HR Vancomycin HCl 0 ml @ 0 mls/hr UD IV 07/31/24 14:45 Melatonin 5 mg HS PO 07/31/24 23:48 08/03/24 21:03 5 MG Vancomycin HCl 200 ml @ 200 mls/hr Q12H IV 08/02/24 21:00 08/03/24 21:05 200 MLS/HR Furosemide 20 mg BIDD IV 08/03/24 18:00 08/03/24 18:08 20 MG objective Gen.: Patient lying in bed in no apparent distress. On supplemental oxygen. Head: Normocephalic, atraumatic. Eyes: EOMI/PERRLA. Ears: Normal hearing. Normal anatomy. Neck/trachea: Trachea midline, supple. Nose: Normal external anatomy. Mouth: Moist mucous membranes. Chest: Decreased air entry bilaterally. No wheezing or rhonchi. Cardiovascular: Positive S1, positive S2. Regular rate and rhythm. Abdomen: Positive bowel sounds in all 4 quadrants. Soft, non-tender, non- distended. : Deferred. Rectal: Deferred. Skin: Warm, dry. Intact. Extremities: 2+ radial pulses bilaterally. No lower extremity edema. Neuro: Awake, alert, oriented x3. No gross motor or sensory deficits. Cranial nerves II through XII intact. Gait not assessed. laboratory and microbiology Laboratory Tests 08/03/24 07:10 Test 08/03/24 07:10 Range/Units Serum Glucose 123 H 74-106 mg/dL Assessment/Plan Impression: Acute hypoxic respiratory failure Dependence on supplemental oxygen Multiple pulmonary nodules, likely infectious. R/O malignancy Possible gram +/- bacterial pneumonia Bilateral pleural effusions, likely infectious. R/O malignancy Atelectasis Acute on chronic CHF Anemia Coronary artery disease, s/p CABG x4 Events: Remains on supplemental oxygen Currently on 8 LPM simple mask Taper O2 as tolerated Chest CT reviewed, demonstrates no focal consolidation. Innumerable bilateral pulmonary nodules. Small bilateral pleural effusions. No significant interval change. Continue antibiotics Continue bronchodilators Incentive spirometry Head of bed elevation Aspiration precautions. Diurese as tolerated w/ Lasix 20 mg IV BID Monitor renal function. Monitor electrolytes. Supplement as necessary. Plan for EGD/barium swallow by GI Plan for cystoscopy by . Rescheduled procedures for later date d/t respiratory status. GI recommendations appreciated Continue PPI Urology recommendations appreciated CPAP at night with EPAP 8 cm H2O- OK to use home CPAP. Wound care S/p right thoracentesis on 08/01/24 with removal of 1050 mL belen fluid from right pleural space Follow up pleural fluid cultures and cytology Labs and imaging reviewed. Rest of plan as noted below. Plan: Supplemental oxygen Titrate to keep O2 sats above 92%. Initial chest x-ray showed multiple ill-defined nodules of various size, widespread in bilateral lung gomes CT scan of the chest showed multiple well-circumscribed chest nodules with bilateral mild pleural effusions Patient is s/p biopsy of pulmonary nodules - pending results. Limited chest ultrasound demonstrated moderate right and small left pleural effusions. S/p right thoracentesis Continue bronchodilators. Continue antibiotics Incentive spirometry On statin Cardiology recommendations appreciated Monitor H&H Diurese to euvolemia Monitor renal function. Monitor electrolytes. Supplement as necessary. Monitor ins and outs. DVT prophylaxis. Prognosis: Poor given patient's multiple co-morbidities. Rest of plan per hospitalist and other consultants. Thank you Dr. Jordan for allowing me to participate in this patient's care. Further recommendations will depend on the patient's clinical course. Please do not hesitate to contact me if you have any questions or concerns. This medical document was created using an electronic medical record system with [employer] dictation system. Although these documentations are being carefully reviewed, there may still be some phonetic and typographical changes. The errors are purely typographical, due to imperfection on the software program, and do not reflect any compromise in the patient's medical care. Dietary Evaluation Review Comments: 1) Ensure Enlive 240ml BID 2) brandy 1 pk BID 3) Continue current plan of care Expected Outcomes/Goals: Pt will meet 75% estimated needs Fu 3-5 days Plan discussed with: Patient, Other (RN) MARTY DAVIS MD Aug 04, 2024 04:35
--- NOTE | 2024-08-04 13:20 | DVHPN2 ---
Subjective The patient is seen and examined at bedside. The patient is still complain of shortness a breath. Reviewed: Care Plan, H&P, Labs, Medications, Previous Orders, Radiology Changes from previous H/P or p: No Changes General: Per HPI Objective Vitals Vital Signs Date Time Temp Pulse Resp B/P (MAP) Pulse Ox O2 Delivery O2 Flow Rate FiO2 08/04/24 11:43 77 18 91 08/04/24 08:25 115/62 15.0 82 08/04/24 06:27 Oxymizer 08/04/24 05:00 97.6 97.6 Intake/Output Intake and Output 08/04/24 07:00 Intake Total 250 ml Output Total 1000 ml Balance -750 ml Intake Oral 250 ml Output Urine Total 1000 ml General Appearance: Alert, Oriented X3, Cooperative, No acute distress HEENT: Atraumatic Lungs: Clear to auscultation Cardiovascular: Regular rate, Normal S1, Normal S2 Abdomen: Normal bowel sounds, Soft Neuro: Cranial nerves 3-12 NL Psych/Mental Status: Mental status NL Medications Current Medications Medications Dose Ordered Sig/Laurence Route Start Time Stop Time Status Last Admin Dose Admin Lisinopril 10 mg DAILY PO 07/26/24 10:00 Hold 07/26/24 11:36 10 MG Acetaminophen 500 mg Q4HPRN PRN PO 07/26/24 05:30 Levothyroxine Sodium 137 mcg QAM@0600 PO 07/26/24 06:00 08/02/24 06:01 137 MCG Ipratropium [place] 0.5 mg Q6HR NEB 07/27/24 00:00 08/04/24 11:33 0.5 MG Mupirocin 1 applic BID TOP 07/27/24 22:00 08/04/24 10:37 1 APPLIC Enoxaparin Sodium 40 mg DAILY SC 07/29/24 10:00 08/04/24 10:45 40 MG Levalbuterol HCl 0.625 mg Q6HR NEB 07/30/24 06:00 08/04/24 11:33 0.625 MG Atorvastatin Calcium 40 mg HS PO 07/30/24 22:00 08/03/24 21:03 40 MG Itraconazole 200 mg Q12HR PO 07/31/24 10:00 08/04/24 10:45 200 MG Meropenem 50 ml @ 17 mls/hr Q8H IV 07/31/24 18:00 08/04/24 10:46 17 MLS/HR Vancomycin HCl 0 ml @ 0 mls/hr UD IV 07/31/24 14:45 Melatonin 5 mg HS PO 07/31/24 23:48 08/03/24 21:03 5 MG Furosemide 20 mg BIDD IV 08/03/24 18:00 08/03/24 18:08 20 MG Vancomycin HCl 100 ml @ 100 mls/hr Q12H IV 08/04/24 17:00 Laboratory Results Laboratory Tests 08/03/24 07:10 Urinalysis Test 07/26/24 12:05 Urine Color Light-orange (Yellow) Urine Clarity Turbid (Clear) H Urine pH 6.0 (5.0-9.0) Urine Specific [place] > 1.035 (1.001-1.035) Urine Protein 1+ (Negative) H Urine Ketones 1+ (Negative) H Urine Blood 3+ /uL (Negative) H Urine Nitrite Negative (Negative) Urine Bilirubin Negative (Negative) Urine Urobilinogen Normal mg/dL (Negative) Urine Leukocyte Esterase Trace /uL (Negative) Urine RBC 480 /hpf (0 - 3) Urine Microscopic WBC 47 /HPF (0-3) H Urine Squamous Epithelial Cells Few /hpf (<5) Urine Bacteria None seen /hpf (None Seen) Urine Mucus Few (None Seen) Urine Glucose Normal mg/dL (Normal) Microbiology Microbiology Date/Time Source Procedure Growth Status 08/01/24 16:25 Pleural Fluid Gram Stain - Final Resulted 08/01/24 16:25 Pleural Fluid Body Fluid Culture - Preliminary Resulted 07/27/24 00:00 Toe Right (Third) Gram Stain - Final Complete 07/27/24 00:00 Toe Right (Third) Wound Culture - Final Complete 07/26/24 15:00 Sputum Gram Stain - Final Complete 07/26/24 15:00 Sputum Respiratory Culture - Final Complete 07/25/24 19:08 Blood Blood Culture - Final NO GROWTH AFTER 5 DAYS OF INCUBATION. Complete Assessment/Plan Assessment/Plan Acute hypoxic respiratory failure Multiple pulmonary nodules, likely due to malignancy, R/O metastasis Possible gram +/- bacterial pneumonia Bilateral pleural effusion, possibly infectious cause, R/O malignancy -patient has been feeling generalized weakness and fatigue in the past two weeks with chronic cough -initial chest x-ray showed multiple ill-defined nodules of various size widespread on bilateral lung gomes -CT scan of the chest showed multiple well-circumscribed chest nodules with bilateral mild pleural effusion -ordered sputum cultures -ordered coccidiomycosis antibody which came back negative -ordered blood cultures -currently on 8 L of oxygen through simple mask -Continue IV meropenem and vancomycin -monitor oxygen saturation and titrate down as tolerated -patient had pulmonary nodules biopsy performed 07/29/24, pending results -right-sided thoracentesis was performed at bedside on 08/01/24, 1050 cc of pleural fluid was removed and sent to pathology. -still pending fluid analysis protein, LDH and gluteus Possible bladder Cancer Poss metastasis to the lungs -CT of abdomen and pelvis showed irregular calcified mass and thickening of the wall of the bladder which is concerning for malignancy -consulted Urology for cystoscopy which we will be performed today with biopsy Distal thickening of esophagus, R/O malignancy -GI on board will perform barium swallow eval -Porbable EGD on tuesday Possible acute on chronic systolic/diastolic heart failure -Bilateral lower extremity edema 2+ ext to mid tibias -BNP was 387.4 -EKG showed sinus rhythm with nonspecific T-waves inversion in leads III, AVF, V5, V6 -troponins were negative -ordered echocardiogram which showed an LVEF of 55% with normal valves, slight aortic sclerosis. -Decrease furosemide to 20 mg IV b.i.d. -monitor in's and out -Stop aspirin Hypothyroidism -TSH was 12.89, free T4 0.87 and total T3 0.42 -continue levothyroxine 137 mcg q.a.m. Mild normocytic normochromic anemia, likely anemia of chronic diseases. Rule out iron-deficiency -Hb 11.9 -order iron panel and ferritin -Stop aspirin Hx of CAD, CABGX4 -Stop ASA Continuing current management. Discussed with son and daughter at bedside in length. This medical document was created using an electronic medical record system with [employer] computerized dictation system. Although this document has been carefully reviewed, there may still be some phonetic and typographical errors. These areas are purely typographical due to imperfections of the software programs, and do not reflect any compromise in the patient's medical care. Plan discussed with: Patient, Daughter, Son Date of Service: Aug 04, 2024 Billing Provider: PARVIN HERNANDES MD Common Visit Codes: [id number] INP/OBS CARE(HIGH) PARVIN HERNANDES MD Aug 04, 2024 13:20
[2024-08-04] MEDS: VANCOMYCIN 750MG KIT 100 ML IV SCH (18:22)
--- NOTE | 2024-08-04 23:12 | DVHPN2 ---
Progress Note - Dictate Date Seen: Aug 04, 2024 Has the PT tested + for MRSA If YES, has PT been informed?: Yes Medical Necessity Reason Pt with a Central, PICC or Fol: Yes The following are medically ne: Calhoun Catheter Reason for calhoun catheter: Strict I&O Subjective Patient seen and examined at bedside. Remains on supplemental oxygen Overnight events reviewed. vital signs Vital Sign Date Time Temp Pulse Resp B/P (MAP) Pulse Ox O2 Delivery O2 Flow Rate FiO2 08/04/24 20:46 97.9 77 20 105/45 (65) 93 97.9 08/04/24 18:33 Oxymizer 15.0 08/04/24 18:33 N/A Total Intake and Output 08/03/24 08/03/24 08/04/24 15:00 23:00 07:00 Intake Total 0 ml 250 ml Output Total 1000 ml Balance 0 ml -750 ml medications Current Medications Medications Dose Ordered Sig/Laurence Route Start Time Stop Time Status Last Admin Dose Admin Lisinopril 10 mg DAILY PO 07/26/24 10:00 Hold 07/26/24 11:36 10 MG Acetaminophen 500 mg Q4HPRN PRN PO 07/26/24 05:30 Levothyroxine Sodium 137 mcg QAM@0600 PO 07/26/24 06:00 08/02/24 06:01 137 MCG Ipratropium [place] 0.5 mg Q6HR NEB 07/27/24 00:00 08/04/24 18:35 0.5 MG Mupirocin 1 applic BID TOP 07/27/24 22:00 08/04/24 22:40 1 APPLIC Enoxaparin Sodium 40 mg DAILY SC 07/29/24 10:00 08/04/24 10:45 40 MG Levalbuterol HCl 0.625 mg Q6HR NEB 07/30/24 06:00 08/04/24 18:35 0.625 MG Atorvastatin Calcium 40 mg HS PO 07/30/24 22:00 08/04/24 22:39 40 MG Itraconazole 200 mg Q12HR PO 07/31/24 10:00 08/04/24 22:40 200 MG Meropenem 50 ml @ 17 mls/hr Q8H IV 07/31/24 18:00 08/04/24 19:35 17 MLS/HR Vancomycin HCl 0 ml @ 0 mls/hr UD IV 07/31/24 14:45 Melatonin 5 mg HS PO 07/31/24 23:48 08/04/24 22:38 5 MG Furosemide 20 mg BIDD IV 08/03/24 18:00 08/04/24 18:22 20 MG Vancomycin HCl 100 ml @ 100 mls/hr Q12H IV 08/04/24 17:00 08/04/24 18:22 100 MLS/HR objective Gen.: Patient lying in bed in no apparent distress. On supplemental oxygen. Head: Normocephalic, atraumatic. Eyes: EOMI/PERRLA. Ears: Normal hearing. Normal anatomy. Neck/trachea: Trachea midline, supple. Nose: Normal external anatomy. Mouth: Moist mucous membranes. Chest: Decreased air entry bilaterally. No wheezing or rhonchi. Cardiovascular: Positive S1, positive S2. Regular rate and rhythm. Abdomen: Positive bowel sounds in all 4 quadrants. Soft, non-tender, non- distended. : Deferred. Rectal: Deferred. Skin: Warm, dry. Intact. Extremities: 2+ radial pulses bilaterally. No lower extremity edema. Neuro: Awake, alert, oriented x3. No gross motor or sensory deficits. Cranial nerves II through XII intact. Gait not assessed. laboratory and microbiology Laboratory Tests 08/03/24 07:10 Test 08/03/24 07:10 Range/Units Serum Glucose 123 H 74-106 mg/dL Assessment/Plan Impression: Acute hypoxic respiratory failure Dependence on supplemental oxygen Multiple pulmonary nodules, likely infectious. R/O malignancy Possible gram +/- bacterial pneumonia Bilateral pleural effusions, likely infectious. R/O malignancy Atelectasis Acute on chronic CHF Anemia Coronary artery disease, s/p CABG x4 Events: Remains on supplemental oxygen Currently on 15 LPM NRB Taper O2 as tolerated Continue antibiotics Continue antifungals Continue bronchodilators Incentive spirometry Head of bed elevation Aspiration precautions. Diurese as tolerated w/ Lasix 20 mg IV BID Monitor renal function. Monitor electrolytes. Supplement as necessary. CPAP at night with EPAP 8 cm H2O- OK to use home CPAP. Wound care S/p right thoracentesis on 08/01/24 with removal of 1050 mL belen fluid from right pleural space Follow up pleural fluid cultures and cytology Labs and imaging reviewed. Rest of plan as noted below. Plan: Supplemental oxygen Titrate to keep O2 sats above 92%. Continue bronchodilators. Continue antibiotics Incentive spirometry On statin Cardiology recommendations appreciated Monitor H&H Diurese to euvolemia Monitor renal function. Monitor electrolytes. Supplement as necessary. Monitor ins and outs. DVT prophylaxis. Prognosis: Poor given patient's multiple co-morbidities. Rest of plan per hospitalist and other consultants. Thank you Dr. Jordan for allowing me to participate in this patient's care. Further recommendations will depend on the patient's clinical course. Please do not hesitate to contact me if you have any questions or concerns. This medical document was created using an electronic medical record system with [employer] dictation system. Although these documentations are being carefully reviewed, there may still be some phonetic and typographical changes. The errors are purely typographical, due to imperfection on the software program, and do not reflect any compromise in the patient's medical care. Dietary Evaluation Review Comments: 1) Ensure Enlive 240ml BID 2) brandy 1 pk BID 3) Continue current plan of care Expected Outcomes/Goals: Pt will meet 75% estimated needs Fu 3-5 days Plan discussed with: Patient, Other (TOBI Best) MARTY DAVIS MD Aug 04, 2024 23:12
[2024-08-05] VITALS (17 sets, daily range): BP systolic 105–131; BP diastolic 42–94; PULSE 80–110; RESP 16–20; TEMP 97.5–98; O2SAT 87–93
[2024-08-05 06:34] LABS: Basophils # (auto) 0.1 10 ^3/uL (0-0.2); Basophils % (auto) 0.5 % (0.0-2.0); Eosinophils # (auto) 0 10 ^3/uL (0-0.8); Eosinophils % (auto) 0.4 % (0.0-7.0); Hematocrit 32.4 % (41.0-53.0); Hemoglobin 10.8 g/dL (13.5-17.5); Lymphocytes # (auto) 0.4 10 ^3/uL (0.4-5.4); Lymphocytes % (auto) 3.4 % (10.0-50.0); Mean Corpuscular Hemoglobin 28.2 pg (28.0-32.0); Mean Corpuscular Hgb Conc. 33.4 g/dL (32.0-36.0); Mean Corpuscular Volume 84.5 fL (80.0-100.0); Monocytes # (auto) 0.8 10 ^3/uL (0-1.3); Monocytes % (auto) 6.6 % (0.0-12.0); Neutrophils # (auto) 11.3 10 ^3/uL (1.6-8.6); Neutrophils % (auto) 89.1 % (37.0-80.0); Platelet Count (auto) 270 10^3/uL (140-450); Red Blood Cells 3.84 10^6/uL (4.5-5.90); Red Cell Distribution Width 15.9 % (11.8-14.3); White Blood Cell 12.6 10^3/uL (4.4-10.8)
[2024-08-05 06:51] LABS: Anion Gap 10 (5-15); Carbon Dioxide 24 mmol/L (20-31); Chloride 102 mmol/L (98-107); Potassium 3.6 mmol/L (3.5-5.1); Sodium 136 mmol/L (136-145)
[2024-08-05 06:57] LABS: Blood Urea Nitrogen 13 mg/dL (9-23); Glucose 137 mg/dL (74-106)
[2024-08-05] MEDS: VANCOMYCIN 750MG KIT 100 ML IV SCH (08:54)
--- NOTE | 2024-08-05 12:51 | DVHPN2 ---
Progress Note - Dictate Date Seen: Aug 05, 2024 Has the PT tested + for MRSA If YES, has PT been informed?: No Medical Necessity Reason Pt with a Central, PICC or Fol: No The following are medically ne: Calhoun Catheter Reason for calhoun catheter: Strict I&O Subjective Patient is doing slightly better respiratory hendricks still complaints of weakness shortness of breath mild No dysphagia but heartburn Was supposed to get cystoscopy etc. done today but apparently was canceled because anesthesia felt patient is not stable for sedation Patient is still weak and tired on high-flow oxygen medically unstable for any endoscopic intervention vital signs Vital Sign Date Time Temp Pulse Resp B/P (MAP) Pulse Ox O2 Delivery O2 Flow Rate FiO2 08/05/24 11:56 91 Simple Mask* 10 99 08/05/24 11:56 82 20 08/05/24 09:00 97.7 109/51 (70) 97.7 Total Intake and Output 08/04/24 08/04/24 08/05/24 15:00 23:00 07:00 Intake Total 560 ml 740 ml 170 ml Output Total 270 ml 175 ml Balance 560 ml 470 ml -5 ml medications Current Medications Medications Dose Ordered Sig/Laurence Route Start Time Stop Time Status Last Admin Dose Admin Lisinopril 10 mg DAILY PO 07/26/24 10:00 Hold 07/26/24 11:36 10 MG Acetaminophen 500 mg Q4HPRN PRN PO 07/26/24 05:30 Levothyroxine Sodium 137 mcg QAM@0600 PO 07/26/24 06:00 08/05/24 05:36 137 MCG Ipratropium [place] 0.5 mg Q6HR NEB 07/27/24 00:00 08/05/24 11:50 0.5 MG Mupirocin 1 applic BID TOP 07/27/24 22:00 08/05/24 10:41 1 APPLIC Enoxaparin Sodium 40 mg DAILY SC 07/29/24 10:00 08/05/24 10:42 40 MG Levalbuterol HCl 0.625 mg Q6HR NEB 07/30/24 06:00 08/05/24 11:50 0.625 MG Atorvastatin Calcium 40 mg HS PO 07/30/24 22:00 08/04/24 22:39 40 MG Itraconazole 200 mg Q12HR PO 07/31/24 10:00 08/05/24 10:42 200 MG Meropenem 50 ml @ 17 mls/hr Q8H IV 07/31/24 18:00 08/05/24 10:41 17 MLS/HR Vancomycin HCl 0 ml @ 0 mls/hr UD IV 07/31/24 14:45 Melatonin 5 mg HS PO 07/31/24 23:48 08/04/24 22:38 5 MG Furosemide 20 mg BIDD IV 08/03/24 18:00 08/05/24 05:44 20 MG Vancomycin HCl 100 ml @ 100 mls/hr Q12H IV 08/05/24 08:00 08/05/24 08:54 100 MLS/HR objective Abdomen is soft nontender CT scan had shown some mild thickening of the esophagus in the stomach and we will recommend a EGD evaluation if possible But patient is properly not stable for anesthesia at this time it as anesthesia recommended for about a week and then if better evaluate the area. In the meantime we will recommend to treat with PPIs and see Patient is still unstable with needing high-flow oxygen and so we will not consider endoscopic evaluation at this time at all until more stable Thank you Dr. Garcia laboratory and microbiology Laboratory Tests 08/05/24 06:02 Test 08/05/24 06:02 Range/Units Serum Glucose 137 H 74-106 mg/dL Assessment/Plan 58-year-old with the complaints of shortness of breath history of hypothyroidism coronary artery bypass surgery has pulmonary nodules and some GI symptoms nonspecific with nausea anorexia anemia No dysphagia no hematemesis no melena CT scan showed mild thickening of the distal esophagus and the stomach. We will recommend an EGD evaluation but patient is unstable as per anesthesia for any sedation and they wanted to recommend to wait for about a week We will recommend follow closely with PPIs and re-evaluate for EGD when more stable Thank you Dr. Garcia Dietary Evaluation Review Comments: 1) Ensure Enlive 240ml BID 2) brandy 1 pk BID 3) Continue current plan of care Expected Outcomes/Goals: Pt will meet 75% estimated needs Fu 3-5 days Plan discussed with: Patient YULIYA GARCIA MD Aug 05, 2024 12:51
--- NOTE | 2024-08-05 14:08 | DVHPNRES ---
Progress Note Date Seen: Aug 05, 2024 Resident Creating Document: FLORY VENEGAS RESIDENT Has the PT tested + for MRSA If YES, has PT been informed?: No Medical Necessity Reason Pt with a Central, PICC or Fol: No The following are medically ne: Calhoun Catheter Reason for calhoun catheter: Strict I&O Subjective Review of Systems This is a 78-year-old male with past medical history of CABG x4, hypothyroidism, hypertension, who presented to the ED with chief complaint of generalized weakness, feeling tired productive cough for the past two weeks. The patient states that has not been feeling himself in the past two weeks, with increased fatigue and that his family members have also noticed it him strange. Upon admission, the patient denied shortness of breath, chest pain, abdominal tenderness, weight loss, fever/chills, night sweats or any other symptoms at this time. The patient reports a previous travels to [place] in March but no recent travels outside the country or any sick contacts. On admission patient was tachypneic and slightly hypoxic requiring oxygen through nasal cannula. Initial chest x-ray was performed showing multiple ill-defined nodules of various sizes. We performed a CT scan of the chest which showed multiple well- circumscribed chest nodules with mild bilateral pleural effusion. Patient will be admitted for further assessment and management. Patient seen and examined at bedside. Patient is currently alert and oriented in person, place and time. Patient is currently requiring 15 L of oxygen through Ox[employer]izer. Despite patient denying pain, chest pain or shortness of breaths, patient seems to be weaker and worse in overall condition compared to previous days. Urology and GI are both on the case. Urology has been planning to perform a cystoscopy for bladder biopsy to rule out cancer but patient has been unstable requiring too much oxygen supplementation. GI also recommended to postpone EGD for at least one week until the patient is slightly better respiratory hendricks and overall condition. Barium swallow evaluation was also canceled due to poor patient's status. Meanwhile, we will continue the patient on IV meropenem, vancomycin and itraconazole. Family is aware of condition But they do not want neither the patient or the to know that there is possible active cancer until biopsy is done. ROS Constitutional: Denies weight loss, fever and chills. HEENT: Denies changes in vision and hearing. Respiratory: Denies shortness of breath and cough Cardiovascular: Denies chest discomfort or palpitations GI: Denies abdominal pain, nausea, vomiting and diarrhea. : Denies dysuria and urinary frequency. Musculoskeletal: Denies myalgias and joint pain Skin: Denies rash and pruritus. Neurological: Denies dizziness, headache, vision or hearing problems Objective vital signs Vital Sign Date Time Temp Pulse Resp B/P (MAP) Pulse Ox O2 Delivery O2 Flow Rate FiO2 08/05/24 11:56 91 Simple Mask* 10 99 08/05/24 11:56 82 20 08/05/24 09:00 97.7 109/51 (70) 97.7 Total Intake and Output 08/04/24 08/04/24 08/05/24 15:00 23:00 07:00 Intake Total 560 ml 740 ml 170 ml Output Total 270 ml 175 ml Balance 560 ml 470 ml -5 ml medications Current Medications Medications Dose Ordered Sig/Laurence Route Start Time Stop Time Status Last Admin Dose Admin Lisinopril 10 mg DAILY PO 07/26/24 10:00 Hold 07/26/24 11:36 10 MG Acetaminophen 500 mg Q4HPRN PRN PO 07/26/24 05:30 Levothyroxine Sodium 137 mcg QAM@0600 PO 07/26/24 06:00 08/05/24 05:36 137 MCG Ipratropium [place] 0.5 mg Q6HR NEB 07/27/24 00:00 08/05/24 11:50 0.5 MG Mupirocin 1 applic BID TOP 07/27/24 22:00 08/05/24 10:41 1 APPLIC Enoxaparin Sodium 40 mg DAILY SC 07/29/24 10:00 08/05/24 10:42 40 MG Levalbuterol HCl 0.625 mg Q6HR NEB 07/30/24 06:00 08/05/24 11:50 0.625 MG Atorvastatin Calcium 40 mg HS PO 07/30/24 22:00 08/04/24 22:39 40 MG Itraconazole 200 mg Q12HR PO 07/31/24 10:00 08/05/24 10:42 200 MG Meropenem 50 ml @ 17 mls/hr Q8H IV 07/31/24 18:00 08/05/24 10:41 17 MLS/HR Vancomycin HCl 0 ml @ 0 mls/hr UD IV 07/31/24 14:45 Melatonin 5 mg HS PO 07/31/24 23:48 08/04/24 22:38 5 MG Furosemide 20 mg BIDD IV 08/03/24 18:00 08/05/24 05:44 20 MG Vancomycin HCl 100 ml @ 100 mls/hr Q12H IV 08/05/24 08:00 08/05/24 08:54 100 MLS/HR Examination Physical Examination General: Patient alert and oriented in person, place and time. Patient following commands. HEENT: Normocephalic, atraumatic, moist mucous membranes Respiratory/pulmonary: There is decreased breath sounds that is more prominent in the right lower lung, left lung sounds grossly clear. no wheezes present at this time. Currently on 15 L of oxygen through Oxymizer. Cardiovascular: Normal heart sounds S1 and S2 with no associated murmurs Abdomen: Abdomen nondistended, there is no pain to palpation in any of the abdominal quadrants, no palpable masses. Extremities: There is very minimal lower extremity edema at this point. Peripheral Pulses: 3+ Radial (R). 3+ Radial (L). 3+ Dorsalis pedis (R). 3+ Dorsalis pedis(L) Skin: No rashes or pruritus, there is no sacral edema present at this time. Neurological: Intact cranial nerves with no focal neurologic deficits laboratory and microbiology Laboratory Tests 08/05/24 06:02 Test 08/05/24 06:02 Range/Units Serum Glucose 137 H 74-106 mg/dL Microbiology Date/Time Source Procedure Growth Status 08/01/24 16:25 Pleural Fluid Gram Stain - Final Resulted 08/01/24 16:25 Pleural Fluid Body Fluid Culture - Preliminary Resulted 07/27/24 00:00 Toe Right (Third) Gram Stain - Final Complete 07/27/24 00:00 Toe Right (Third) Wound Culture - Final Complete 07/26/24 15:00 Sputum Gram Stain - Final Complete 07/26/24 15:00 Sputum Respiratory Culture - Final Complete 07/25/24 19:08 Blood Blood Culture - Final NO GROWTH AFTER 5 DAYS OF INCUBATION. Complete Problem List/Assessment/Plan Problem List/Assessment/Plan Assessment/Plan Acute hypoxic respiratory failure Multiple pulmonary nodules, likely due to malignancy, R/O metastasis Possible gram +/- bacterial pneumonia Bilateral pleural effusion, possibly infectious cause, R/O malignancy -patient has been feeling generalized weakness and fatigue in the past two weeks with chronic cough -initial chest x-ray showed multiple ill-defined nodules of various size widespread on bilateral lung gomes -CT scan of the chest showed multiple well-circumscribed chest nodules with bilateral mild pleural effusion -ordered sputum cultures -ordered coccidiomycosis antibody which came back negative -ordered blood cultures -currently on 15 L of oxygen through oxymizer -Continue IV meropenem and vancomycin -monitor oxygen saturation and titrate down as tolerated -patient had pulmonary nodules biopsy performed 07/29/24, pending results -right-sided thoracentesis was performed at bedside on 08/01/24, 1050 cc of pleural fluid was removed and sent to pathology. -still pending fluid analysis protein, LDH and gluteus Possible bladder Cancer Poss metastasis to the lungs -CT of abdomen and pelvis showed irregular calcified mass and thickening of the wall of the bladder which is concerning for malignancy -consulted Urology for cystoscopy but has not been able to be performed due to patient's poor status and high oxygen supplementation. Distal thickening of esophagus, R/O malignancy -GI on board will perform barium swallow eval, which was further canceled due to patient's poor status -GI recommended to postpone EGD due to high oxygen supplementation and poor patient condition. 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 -continue furosemide to 20 mg IV b.i.d. -monitor in's and out -Stop aspirin Hypothyroidism -TSH was 12.89, free T4 0.87 and total T3 0.42 -continue levothyroxine 137 mcg q.a.m. Mild normocytic normochromic anemia, likely anemia of chronic diseases. Rule out iron-deficiency -Hb 11.9 -order iron panel and ferritin -Stop aspirin Hx of CAD, CABGX4 -Stop ASA We have extensive discussion of >30min regarding patients care and plan Goals of care discussed with the patient at bedside for >25min, FULL CODE Plan discussed with Dr. Hernandes Plan discussed with: Patient, Other My Orders My Orders Orders - FLORY VENEGAS RESIDENT Procedure Category Date Status Time Vancomycin 750mg Kit PHA 08/05/24 In Process (Vancomycin Hcl) 08:00 Complete Blood Count LAB 08/06/24 Verified 04:00 Dietary Evaluation Review Comments: 1) Ensure Enlive 240ml BID 2) brandy 1 pk BID 3) Continue current plan of care Expected Outcomes/Goals: Pt will meet 75% estimated needs Fu 3-5 days Date of Service: Aug 05, 2024 Billing Provider: PARVIN HERNANDES MD Common Visit Codes: [id number] INP/OBS CARE(HIGH) FLORY VENEGAS RESIDENT Aug 05, 2024 14:08 PARVIN HERNANDES MD Aug 06, 2024 06:47
--- NOTE | 2024-08-05 23:55 | DVHPN2 ---
Progress Note - Dictate Date Seen: Aug 05, 2024 Has the PT tested + for MRSA If YES, has PT been informed?: No Medical Necessity Reason Pt with a Central, PICC or Fol: Yes The following are medically ne: Calhoun Catheter Reason for cahloun catheter: Strict I&O Subjective Patient seen and examined at bedside. Remains on supplemental oxygen Overnight events reviewed. vital signs Vital Sign Date Time Temp Pulse Resp B/P (MAP) Pulse Ox O2 Delivery O2 Flow Rate FiO2 08/05/24 21:00 98.0 103 17 116/50 (72) 90 98.0 08/05/24 18:40 Non-Rebreather 15.0 08/05/24 18:40 N/A Total Intake and Output 08/04/24 08/04/24 08/05/24 15:00 23:00 07:00 Intake Total 560 ml 740 ml 170 ml Output Total 270 ml 175 ml Balance 560 ml 470 ml -5 ml medications Current Medications Medications Dose Ordered Sig/Laurence Route Start Time Stop Time Status Last Admin Dose Admin Lisinopril 10 mg DAILY PO 07/26/24 10:00 Hold 07/26/24 11:36 10 MG Acetaminophen 500 mg Q4HPRN PRN PO 07/26/24 05:30 Levothyroxine Sodium 137 mcg QAM@0600 PO 07/26/24 06:00 08/05/24 05:36 137 MCG Ipratropium [place] 0.5 mg Q6HR NEB 07/27/24 00:00 08/05/24 23:49 0.5 MG Mupirocin 1 applic BID TOP 07/27/24 22:00 08/05/24 22:26 1 APPLIC Enoxaparin Sodium 40 mg DAILY SC 07/29/24 10:00 08/05/24 10:42 40 MG Levalbuterol HCl 0.625 mg Q6HR NEB 07/30/24 06:00 08/05/24 23:49 0.625 MG Atorvastatin Calcium 40 mg HS PO 07/30/24 22:00 08/05/24 22:26 40 MG Itraconazole 200 mg Q12HR PO 07/31/24 10:00 08/05/24 22:26 200 MG Meropenem 50 ml @ 17 mls/hr Q8H IV 07/31/24 18:00 08/05/24 19:32 17 MLS/HR Vancomycin HCl 0 ml @ 0 mls/hr UD IV 07/31/24 14:45 Melatonin 5 mg HS PO 07/31/24 23:48 08/05/24 22:25 5 MG Furosemide 20 mg BIDD IV 08/03/24 18:00 08/05/24 19:36 20 MG Vancomycin HCl 100 ml @ 100 mls/hr Q12H IV 08/05/24 08:00 08/05/24 22:27 100 MLS/HR objective Gen.: Patient lying in bed in no apparent distress. On supplemental oxygen. Head: Normocephalic, atraumatic. Eyes: EOMI/PERRLA. Ears: Normal hearing. Normal anatomy. Neck/trachea: Trachea midline, supple. Nose: Normal external anatomy. Mouth: Moist mucous membranes. Chest: Decreased air entry bilaterally. No wheezing or rhonchi. Cardiovascular: Positive S1, positive S2. Regular rate and rhythm. Abdomen: Positive bowel sounds in all 4 quadrants. Soft, non-tender, non- distended. : Deferred. Rectal: Deferred. Skin: Warm, dry. Intact. Extremities: 2+ radial pulses bilaterally. No lower extremity edema. Neuro: Awake, alert, oriented x3. No gross motor or sensory deficits. Cranial nerves II through XII intact. Gait not assessed. laboratory and microbiology Laboratory Tests 08/05/24 06:02 Test 08/05/24 06:02 Range/Units Serum Glucose 137 H 74-106 mg/dL Assessment/Plan Impression: Acute hypoxic respiratory failure Dependence on supplemental oxygen Multiple pulmonary nodules, likely infectious. R/O malignancy Possible gram +/- bacterial pneumonia Bilateral pleural effusions, likely infectious. R/O malignancy Atelectasis Acute on chronic CHF Anemia Coronary artery disease, s/p CABG x4 Events: Remains on supplemental oxygen Remains on 15 LPM NRB Taper O2 as tolerated Continue antibiotics Continue antifungals Continue bronchodilators Incentive spirometry Head of bed elevation Aspiration precautions. Diurese as tolerated w/ Lasix 20 mg IV BID Monitor renal function. Monitor electrolytes. Supplement as necessary. CPAP at night with EPAP 8 cm H2O- OK to use home CPAP. Lovenox for DVT prophylaxis Wound care S/p right thoracentesis on 08/01/24 with removal of 1050 mL belen fluid from right pleural space Pleural fluid cultures showed no growth Labs and imaging reviewed. Rest of plan as noted below. Plan: Supplemental oxygen Titrate to keep O2 sats above 92%. Continue bronchodilators. Continue antibiotics Incentive spirometry On statin Cardiology recommendations appreciated Monitor H&H Diurese to euvolemia Monitor renal function. Monitor electrolytes. Supplement as necessary. Monitor ins and outs. DVT prophylaxis. Prognosis: Poor given patient's multiple co-morbidities. Rest of plan per hospitalist and other consultants. Thank you Dr. Jordan for allowing me to participate in this patient's care. Further recommendations will depend on the patient's clinical course. Please do not hesitate to contact me if you have any questions or concerns. This medical document was created using an electronic medical record system with [employer] dictation system. Although these documentations are being carefully reviewed, there may still be some phonetic and typographical changes. The errors are purely typographical, due to imperfection on the software program, and do not reflect any compromise in the patient's medical care. Dietary Evaluation Review Comments: 1) Ensure Enlive 240ml BID 2) brandy 1 pk BID 3) Continue current plan of care Expected Outcomes/Goals: Pt will meet 75% estimated needs Fu 3-5 days Plan discussed with: Patient, Other (RN) MARTY DAVIS MD Aug 05, 2024 23:55
[2024-08-06] VITALS (36 sets, daily range): BP systolic 93–129; BP diastolic 33–64; PULSE 60–109; RESP 12–27; TEMP 97.6–99.2; O2SAT 85–95
[2024-08-06 00:22] LABS: Base Excess 5.2 mmol/L (-2.0-3.0)
[2024-08-06 03:51] LABS: Basophils # (auto) 0.1 10 ^3/uL (0-0.2); Basophils % (auto) 0.5 % (0.0-2.0); Eosinophils # (auto) 0.1 10 ^3/uL (0-0.8); Eosinophils % (auto) 0.6 % (0.0-7.0); Hematocrit 34.1 % (41.0-53.0); Hemoglobin 11.5 g/dL (13.5-17.5); Lymphocytes # (auto) 0.6 10 ^3/uL (0.4-5.4); Lymphocytes % (auto) 4.8 % (10.0-50.0); Mean Corpuscular Hemoglobin 28.2 pg (28.0-32.0); Mean Corpuscular Hgb Conc. 33.6 g/dL (32.0-36.0); Mean Corpuscular Volume 83.9 fL (80.0-100.0); Monocytes # (auto) 0.9 10 ^3/uL (0-1.3); Monocytes % (auto) 7.4 % (0.0-12.0); Neutrophils # (auto) 10.3 10 ^3/uL (1.6-8.6); Neutrophils % (auto) 86.7 % (37.0-80.0); Platelet Count (auto) 290 10^3/uL (140-450); Red Blood Cells 4.07 10^6/uL (4.5-5.90); Red Cell Distribution Width 15.9 % (11.8-14.3); White Blood Cell 11.9 10^3/uL (4.4-10.8)
[2024-08-06 04:01] LABS: Chloride 100 mmol/L (98-107); Potassium 3.8 mmol/L (3.5-5.1); Sodium 136 mmol/L (136-145)
[2024-08-06 04:02] LABS: Anion Gap 8 (5-15); Carbon Dioxide 28 mmol/L (20-31)
[2024-08-06 04:03] LABS: Calcium 9.5 mg/dL (8.7-10.4)
[2024-08-06 04:08] LABS: BUN/Creatinine Ratio 31.7 (10.0-20.0); Blood Urea Nitrogen 19 mg/dL (9-23)
[2024-08-06 04:10] LABS: Glucose 136 mg/dL (74-106)
[2024-08-06 07:48] LABS: Base Excess 5.2 mmol/L (-2.0-3.0)
--- NOTE | 2024-08-06 09:48 | DVH ---
Bilateral Chest Sonogram Date: 08/06/2024 08:52 AM Clinical history: B/L pleural effusion Findings: Small bilateral pleural effusions. IMPRESSION: Small bilateral pleural effusions. END IMPRESSION:
--- NOTE | 2024-08-06 11:44 | DVH ---
CHEST RADIOGRAPH Indication: SOB Technique: Frontal view of the chest. Comparison: XY CHEST XRAY 1 VIEW on DOS: 08/02/24, XY CHEST PORTABLE on DOS: 07/31/24, XY CHEST PORTABL E on DOS: 07/30/24, XY CHEST PORTABLE on DOS: 07/30/24, XY CHEST XRAY 1 VIEW on DOS: 07/30/24, XY CHEST XRAY 1 VIEW on DOS: 08/02/24 FINDINGS: LUNGS AND PLEURAL SPACES: Interstitial and patchy airspace disease of both lungs, unchanged. No pn eumothorax. HEART: Unremarkable. No cardiomegaly. MEDIASTINUM: Unremarkable. Normal mediastinal contour. BONES/JOINTS: Unremarkable. No acute fracture. OTHER FINDINGS: . IMPRESSION: 1. No pneumothorax. 2. Interstitial and patchy airspace disease of both lungs, unchanged.
[2024-08-06] MEDS: D5W 5% 250 ML IV ONE (20:15)
--- NOTE | 2024-08-06 20:19 | DVHPNRES ---
Progress Note Date Seen: Aug 06, 2024 Resident Creating Document: SUKHDEV RIOS RESIDENT Has the PT tested + for MRSA If YES, has PT been informed?: No Medical Necessity Reason Pt with a Central, PICC or Fol: Yes The following are medically ne: Calhoun Catheter Reason for calhoun catheter: Strict I&O Subjective Review of Systems Patient is a 78-year-old male with past medical history of CABG x4, hypothyroidism, hypertension, who presented to the ED with chief complaint of generalized weakness, feeling tired productive cough for the past two weeks. The patient states that has not been feeling himself in the past two weeks, with increased fatigue and that his family members have also noticed it him strange. Upon admission, the patient denied shortness of breath, chest pain, abdominal tenderness, weight loss, fever/chills, night sweats or any other symptoms at this time. The patient reports a previous travels to [place] in March but no recent travels outside the country or any sick contacts. On admission patient was tachypneic and slightly hypoxic requiring oxygen through nasal cannula. Initial chest x-ray was performed showing multiple ill-defined nodules of various sizes. We performed a CT scan of the chest which showed multiple well- circumscribed chest nodules with mild bilateral pleural effusion. Patient will be admitted for further assessment and management. Past medical history: Coronary artery disease status post CABG, hypothyroidism, hypertension Past surgical history: CABG Social history: Denies any history of smoking, alcohol, drug use, worked at [id number] Home medications: Atenolol 12.5 mg, lisinopril 10 mg, Synthroid 137 mcg daily, atorvastatin 40 mg daily, aspirin 80 mg daily Review of systems Patient seen and examined at bedside. Patient reports feeling tired and weak and has increased effort for breathing. Denies chest pain, abdominal pain, nausea or vomiting today patient was on 60 L oxygen via high-flow, respiratory rate continues to be 15-20/min Urine Output 750 mL with a net negative balance of -682 mL. Patient is medical diagnosis of suspected bladder cancer with Mets to lungs discussed in detail with the patient's son Kwaku and daughter Christina and explained about his poor prognosis. Patient was also explained about his diagnosis and they want time to make a decision about further medical care. Objective vital signs Vital Sign Date Time Temp Pulse Resp B/P (MAP) Pulse Ox O2 Delivery O2 Flow Rate FiO2 4/21/25 18:14 109 20 93 60.0 100 08/06/24 18:00 99.2 107/41 (63) 99.2 08/06/24 16:00 Hi-Flow Heated NC+ Total Intake and Output 08/05/24 08/05/24 08/06/24 15:00 23:00 07:00 Intake Total 150 ml 590 ml 250 ml Output Total 100 ml Balance 150 ml 590 ml 150 ml medications Current Medications Medications Dose Ordered Sig/Laurence Route Start Time Stop Time Status Last Admin Dose Admin Acetaminophen 500 mg Q4HPRN PRN PO 07/26/24 05:30 Levothyroxine Sodium 137 mcg QAM@0600 PO 07/26/24 06:00 08/06/24 05:30 137 MCG Ipratropium [place] 0.5 mg Q6HR NEB 07/27/24 00:00 08/06/24 18:14 0.5 MG Mupirocin 1 applic BID TOP 07/27/24 22:00 08/06/24 10:15 1 APPLIC Enoxaparin Sodium 40 mg DAILY SC 07/29/24 10:00 08/06/24 10:15 40 MG Levalbuterol HCl 0.625 mg Q6HR NEB 07/30/24 06:00 08/06/24 18:14 0.625 MG Meropenem 50 ml @ 17 mls/hr Q8H IV 07/31/24 18:00 08/06/24 17:55 17 MLS/HR Vancomycin HCl 0 ml @ 0 mls/hr UD IV 07/31/24 14:45 Melatonin 5 mg HS PO 07/31/24 23:48 08/05/24 22:25 5 MG Furosemide 20 mg BIDD IV 08/03/24 18:00 08/06/24 17:55 20 MG Examination Constitutional: Patient was to time, place and person and is currently on high- flow oxygen at 60 L/min and has a respiratory rate of 15 to 20/min Gen - no pallor, no icterus, no cyanosis, no clubbing, no LAD, trace bilateral pitting edema. Skin - Patients skin is warm and dry.. HEENT - normocephalic, atraumatic, dry mucous membranes. Neck - full ROM, no LAD, no JVD Pulmonary - B/L diminished breath sounds with basilar inspiratory crackles , no wheezing cardiovascular - regular S1,S2 heard, no added sounds, no murmurs heard. GI - soft, nontender abdomen. no hepatospleenomegaly. Bowel sounds normoactive Neurological - Bilateral upper extremity strength 4/5, bilateral lower extremity strength 4/5, no facial droop, normal speech, no tremor, no sensory deficiets. laboratory and microbiology Laboratory Tests 08/06/24 03:13 Test 08/06/24 03:13 Range/Units Serum Glucose 136 H 74-106 mg/dL Microbiology Date/Time Source Procedure Growth Status 08/01/24 16:25 Pleural Fluid Gram Stain - Final Resulted 08/01/24 16:25 Pleural Fluid Body Fluid Culture - Preliminary Resulted 07/27/24 00:00 Toe Right (Third) Gram Stain - Final Complete 07/27/24 00:00 Toe Right (Third) Wound Culture - Final Complete 07/26/24 15:00 Sputum Gram Stain - Final Complete 07/26/24 15:00 Sputum Respiratory Culture - Final Complete 07/25/24 19:08 Blood Blood Culture - Final NO GROWTH AFTER 5 DAYS OF INCUBATION. Complete Problem List/Assessment/Plan Problem List/Assessment/Plan Neurology Patient was oriented to time, place and person and has no deficit but is drowsy in bed. Respiratory Acute hypoxic respiratory failure Multiple pulmonary nodules, med metastasis likely from primary bladder carcinoma Possible gram +/- bacterial pneumonia Bilateral pleural effusion, likely infectious/malignancy -initial chest x-ray showed multiple ill-defined nodules of various size widespread on bilateral lung gomes -CT scan of the chest showed multiple well-circumscribed chest nodules with bilateral mild pleural effusion -sputum culture showed growth of normal oropharyngeal nithya -coccidiomycosis antibody negative -pulmonary nodules biopsy performed 07/29/24, which reports metastatic carcinoma, 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 Acute on chronic Diastolic heart failure Moderate LVH Mild mitral stenosis, severe mitral annular calcification with enlarged left atrium - BNP was 387.4 - EKG showed sinus rhythm with nonspecific T-waves inversion in leads III, AVF, V5, V6 - blood pressure WNL, no vasopressor requirement - Lasix 20 mg IV b.i.d. /oncology ?bladder Cancer with likely metastasis to the lungs Prostatomegaly likely BPH r/o malignancy - CT of abdomen and pelvis showed irregular calcified mass and thickening of the wall of the bladder which is concerning for malignancy - consulted Urology for cystoscopy but has not been able to be performed due to patient's poor status and high oxygen supplementation. 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 Endocrinology Hypothyroidism -TSH was 12.89, free T4 0.87 and total T3 0.42 -continue levothyroxine 137 mcg q.a.m. DVT prophylaxis: Enoxaparin PUD prophylaxis: Protonix Calhoun catheter inserted on 07/31 Goals of care discussed with the patient's son and daughter as well as patient himself full over 35 minutes. Patient is medical diagnosis of suspected bladder cancer with Mets to lungs discussed in detail with the patient's son Kwaku and daughter Christina and explained about his poor prognosis. Patient was also explained about his diagnosis and they want time to make a decision about further medical care. Code status: Full code Care time spent excluding procedures: 83 minutes Plan discussed with Dr. Mcleod Plan discussed with: Patient, Daughter, Son, Other (RN (Marcelle)) My Orders My Orders Orders - SUKHDEV RIOS RESIDENT Procedure Category Date Status Time Chest Xray 1 View XY 08/06/24 Resulted 08:47 Chest Ultrasound US 08/06/24 Resulted 08:47 * Hematology/Oncology CONS 08/06/24 Transmitted Consult 17:28 Dietary Evaluation Review Comments: 1) Ensure Enlive 240ml BID 2) brandy 1 pk BID 3) Continue current plan of care Expected Outcomes/Goals: Pt will meet 75% estimated needs Fu 3-5 days Date of Service: Aug 06, 2024 Billing Provider: YESENIA MCLEOD MD Common Visit Codes: [id number] CARE 30-74 MIN, [id number] CARE-EACH +30MIN SUKHDEV RIOS RESIDENT Aug 06, 2024 20:19 YESENIA MCLEOD MD Aug 07, 2024 14:42
[2024-08-06 21:09] LABS: Alanine Aminotransferase 31 U/L (7-40); Alkaline Phosphatase 92 U/L (46-116); Anion Gap 9 (5-15); BUN/Creatinine Ratio 32.1 (10.0-20.0); Bilirubin, Total 0.9 mg/dL (0.2-1.0); Blood Urea Nitrogen 18 mg/dL (9-23); Calcium 9.1 mg/dL (8.7-10.4); Carbon Dioxide 27 mmol/L (20-31); Chloride 100 mmol/L (98-107); Potassium 3.5 mmol/L (3.5-5.1); Sodium 136 mmol/L (136-145)
[2024-08-06 21:20] LABS: Albumin 2.4 g/dL (3.2-4.8); Aspartate Aminotransferase 50 U/L (13-40); Glucose 123 mg/dL (74-106); Total Protein 5.4 g/dL (5.7-8.2)
[2024-08-06] MEDS ORDERED: KETOROLAC TROMETH 30 MG/ML 1ML VIAL IV PRN (22:45)
[2024-08-06] MEDS: AMIODARONE 360mg/200mL PREMIX 200 ML IV ONE (23:11)
[2024-08-06] MEDS: ENOXAPARIN SOD 80 MG/0.8ML SYRINGE SC SCH (23:20)
[2024-08-06] MEDS: KETOROLAC TROMETH 30 MG/ML 1ML VIAL IV PRN (23:24)
[2024-08-07] VITALS (91 sets, daily range): BP systolic 76–123; BP diastolic 29–64; PULSE 67–126; RESP 11–26; TEMP 98–99.6; O2SAT 90–99
[2024-08-07] MEDS: POTASSIUM CHL 20MEQ/50ML 50 ML IV ONE (00:22)
[2024-08-07 04:17] LABS: Basophils # (auto) 0.1 10 ^3/uL (0-0.2); Basophils % (auto) 0.4 % (0.0-2.0); Eosinophils # (auto) 0 10 ^3/uL (0-0.8); Eosinophils % (auto) 0.3 % (0.0-7.0); Hematocrit 32.2 % (41.0-53.0); Hemoglobin 10.8 g/dL (13.5-17.5); Lymphocytes # (auto) 0.6 10 ^3/uL (0.4-5.4); Lymphocytes % (auto) 4.3 % (10.0-50.0); Mean Corpuscular Hemoglobin 28.3 pg (28.0-32.0); Mean Corpuscular Hgb Conc. 33.4 g/dL (32.0-36.0); Mean Corpuscular Volume 84.6 fL (80.0-100.0); Monocytes % (auto) 6.6 % (0.0-12.0); Neutrophils # (auto) 12.8 10 ^3/uL (1.6-8.6); Neutrophils % (auto) 88.4 % (37.0-80.0); Platelet Count (auto) 257 10^3/uL (140-450); Red Blood Cells 3.81 10^6/uL (4.5-5.90); Red Cell Distribution Width 16.5 % (11.8-14.3); White Blood Cell 14.5 10^3/uL (4.4-10.8)
[2024-08-07] MEDS: AMIODARONE 360mg/200mL PREMIX 200 ML IV SCH (04:32)
[2024-08-07 04:42] LABS: Phosphorus 2.3 mg/dL (2.4-5.1)
[2024-08-07 04:43] LABS: Magnesium 2.1 mg/dL (1.6-2.6)
[2024-08-07] MEDS: POTASSIUM CHLORIDE 60 MEQ, LIDOCAINE 1% (LOCAL ANESTH.) 6 ML in SODIUM CHL 0.9% 500 ML IV ONE (08:13)
[2024-08-07 08:47] LABS: Chloride 101 mmol/L (98-107); Sodium 136 mmol/L (136-145)
[2024-08-07 08:48] LABS: Anion Gap 10 (5-15); Calcium 9.1 mg/dL (8.7-10.4); Carbon Dioxide 25 mmol/L (20-31)
[2024-08-07 08:53] LABS: BUN/Creatinine Ratio 30.2 (10.0-20.0); Blood Urea Nitrogen 19 mg/dL (9-23)
[2024-08-07 08:54] LABS: Glucose 127 mg/dL (74-106); Potassium 3.4 mmol/L (3.5-5.1)
[2024-08-07] MEDS: VANCOMYCIN 750MG KIT 100 ML IV ONE (15:09)
[2024-08-07 15:46] LABS: Base Excess 3.6 mmol/L (-2.0-3.0)
--- NOTE | 2024-08-07 16:00 | ECG ---
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
--- NOTE | 2024-08-07 18:49 | DVHPNRES ---
Progress Note Date Seen: Aug 07, 2024 Resident Creating Document: SUKHDEV RIOS RESIDENT Has the PT tested + for MRSA If YES, has PT been informed?: No Medical Necessity Reason Pt with a Central, PICC or Fol: Yes The following are medically ne: Calhoun Catheter Reason for calhoun catheter: Strict I&O Subjective Review of Systems Patient is a 78-year-old male with past medical history of CABG x4, hypothyroidism, hypertension, who presented to the ED with chief complaint of generalized weakness, feeling tired productive cough for the past two weeks. The patient states that has not been feeling himself in the past two weeks, with increased fatigue and that his family members have also noticed it him strange. Upon admission, the patient denied shortness of breath, chest pain, abdominal tenderness, weight loss, fever/chills, night sweats or any other symptoms at this time. The patient reports a previous travels to [place] in March but no recent travels outside the country or any sick contacts. On admission patient was tachypneic and slightly hypoxic requiring oxygen through nasal cannula. Initial chest x-ray was performed showing multiple ill-defined nodules of various sizes. We performed a CT scan of the chest which showed multiple well- circumscribed chest nodules with mild bilateral pleural effusion. Patient will be admitted for further assessment and management. Past medical history: Coronary artery disease status post CABG, hypothyroidism, hypertension Past surgical history: CABG Social history: Denies any history of smoking, alcohol, drug use, worked at [employer] Home medications: Atenolol 12.5 mg, lisinopril 10 mg, Synthroid 137 mcg daily, atorvastatin 40 mg daily, aspirin 80 mg daily Review of systems Patient seen and examined at bedside. Patient reports feeling tired and weak and has increased effort for breathing. Denies chest pain, abdominal pain, nausea or vomiting on 60 L oxygen via high-flow, respiratory rate continues to be 15-20/min Urine Output 750 mL with a net negative balance of -682 mL. Overnight patient had episode of atrial ficrillation and he was started on amiodarone Objective vital signs Vital Sign Date Time Temp Pulse Resp B/P (MAP) Pulse Ox O2 Delivery O2 Flow Rate FiO2 08/07/24 18:29 111/43 08/07/24 17:00 81 21 91 08/07/24 16:00 98.8 98.8 08/07/24 16:00 Hi-Flow Heated NC+ 60 100 Hi-Flow NC 100 Total Intake and Output 08/06/24 08/06/24 08/07/24 15:00 23:00 07:00 Intake Total 51 ml 167 ml 249.97 ml Output Total 750 ml 500 ml Balance 51 ml -583 ml -250.03 ml medications Current Medications Medications Dose Ordered Sig/Laurence Route Start Time Stop Time Status Last Admin Dose Admin Acetaminophen 500 mg Q4HPRN PRN PO 07/26/24 05:30 Levothyroxine Sodium 137 mcg QAM@0600 PO 07/26/24 06:00 08/06/24 05:30 137 MCG Ipratropium [place] 0.5 mg Q6HR NEB 07/27/24 00:00 08/07/24 12:03 0.5 MG Levalbuterol HCl 0.625 mg Q6HR NEB 07/30/24 06:00 08/07/24 12:03 0.625 MG Meropenem 50 ml @ 17 mls/hr Q8H IV 07/31/24 18:00 08/07/24 18:29 17 MLS/HR Vancomycin HCl 0 ml @ 0 mls/hr UD IV 07/31/24 14:45 Melatonin 5 mg HS PO 07/31/24 23:48 08/05/24 22:25 5 MG Furosemide 20 mg BIDD IV 08/03/24 18:00 08/07/24 18:29 20 MG Ketorolac Tromethamine 15 mg Q8HPRN PRN IV 08/06/24 23:15 08/11/24 23:14 08/06/24 23:24 15 MG Examination Constitutional: Patient was to time, place and person and is currently on high- flow oxygen at 60 L/min and has a respiratory rate of 15 to 20/min Gen - no pallor, no icterus, no cyanosis, no clubbing, no LAD, trace bilateral pitting edema. Skin - Patients skin is warm and dry.. HEENT - normocephalic, atraumatic, dry mucous membranes. Neck - full ROM, no LAD, no JVD Pulmonary - B/L diminished breath sounds with basilar inspiratory crackles , no wheezing cardiovascular - regular S1,S2 heard, no added sounds, no murmurs heard. GI - soft, nontender abdomen. no hepatospleenomegaly. Bowel sounds normoactive Neurological - Bilateral upper extremity strength 4/5, bilateral lower extremity strength 4/5, no facial droop, normal speech, no tremor, no sensory deficiets. laboratory and microbiology Laboratory Tests 08/07/24 03:16 Test 08/07/24 03:16 Range/Units Serum Glucose 127 H 74-106 mg/dL Microbiology Date/Time Source Procedure Growth Status 08/06/24 02:40 Nose MRSA Screen - Final Complete 08/01/24 16:25 Pleural Fluid Gram Stain - Final Complete 08/01/24 16:25 Pleural Fluid Body Fluid Culture - Final Complete 07/26/24 15:00 Sputum Gram Stain - Final Complete 07/26/24 15:00 Sputum Respiratory Culture - Final Complete 07/25/24 19:08 Blood Blood Culture - Final NO GROWTH AFTER 5 DAYS OF INCUBATION. Complete Problem List/Assessment/Plan Problem List/Assessment/Plan Neurology Patient was oriented to time, place and person and has no deficit but is drowsy in bed. Respiratory Acute hypoxic respiratory failure Multiple pulmonary nodules, med metastasis likely from primary bladder carcinoma Possible gram +/- bacterial pneumonia Bilateral pleural effusion, likely infectious/malignancy -initial chest x-ray showed multiple ill-defined nodules of various size widespread on bilateral lung gomes -CT scan of the chest showed multiple well-circumscribed chest nodules with bilateral mild pleural effusion -sputum culture showed growth of normal oropharyngeal nithya -coccidiomycosis antibody negative -pulmonary nodules biopsy performed 07/29/24, which reports metastatic carcinoma, 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 Acute on chronic Diastolic heart failure Moderate LVH Mild mitral stenosis, severe mitral annular calcification with enlarged left atrium new onset atrial fibrillation - BNP was 387.4 - EKG showed sinus rhythm with nonspecific T-waves inversion in leads III, AVF, V5, V6 - blood pressure WNL, no vasopressor requirement - Lasix 20 mg IV b.i.d. - started on amiodarone /oncology ?bladder Cancer with likely metastasis to the lungs Prostatomegaly likely BPH r/o malignancy - CT of abdomen and pelvis showed irregular calcified mass and thickening of the wall of the bladder which is concerning for malignancy - consulted Urology for cystoscopy but has not been able to be performed due to patient's poor status and high oxygen supplementation. 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 Endocrinology Hypothyroidism -TSH was 12.89, free T4 0.87 and total T3 0.42 -continue levothyroxine 137 mcg q.a.m. Diet: started clinimix DVT prophylaxis: Enoxaparin PUD prophylaxis: Protonix Calhoun catheter inserted on 07/31 Goals of care discussed with the patient's son and daughter as well as patient himself full over 35 minutes. Patient is medical diagnosis of likely bladder cancer with Mets to lungs discussed in detail with the patient and his family including his son Kwaku and his siblings and explained about his poor prognosis. Patient alert and oriented X 4 and decided that he did not want to be intubated or resuscitated. Code status: DNR Care time spent excluding procedures: 63 minutes Plan discussed with Dr. Mcleod Plan discussed with: Patient, Daughter, Son, Other (Ant Pickett) My Orders My Orders Orders - SUKHDEV RIOS Procedure Category Date Status Time Abg W/ Co-Ox RT 08/07/24 Logged 04:00 Notify Provider NOTICE 08/07/24 Transmitted Malnutrition 09:33 Nutritional NOURISH 08/07/24 Transmitted Supplements 09:33 Increase Calorie NOURISH 08/07/24 Transmitted Intake 09:33 Code Status CODE 08/07/24 Transmitted 18:19 Dietary Evaluation Review Comments: 1) Ensure Enlive 240ml BID 2) brandy 1 pk BID 3) Continue current plan of care Expected Outcomes/Goals: Pt will meet 75% estimated needs Fu 3-5 days Date of Service: Aug 07, 2024 Billing Provider: YESENIA MCLEOD MD Common Visit Codes: [id number] CARE 30-74 MIN SUKHDEV RIOS RESIDENT Aug 07, 2024 18:49 YESENIA MCLEOD MD Aug 08, 2024 14:00
[2024-08-07] MEDS ORDERED: CLINIMIX PER PHARMACY 0 ML IV SCH (20:00)
[2024-08-07] MEDS: AMINO ACID INFUSION IN D10W 1,000 ML IV SCH (21:55)
[2024-08-07] MEDS ORDERED: DEXTROSE (50%) 50ML SYRG IV SCH (22:00)
[2024-08-07] MEDS: SODIUM PHOSPHATES 20 MEQ in SODIUM CHL 0.9% 100 ML IV ONE (22:34)
[2024-08-08] VITALS (108 sets, daily range): BP systolic 72–141; BP diastolic 30–80; PULSE 67–131; RESP 12–29; TEMP 97.5–98.8; O2SAT 85–96
[2024-08-08] MEDS: InsuLIN REG 1unit/0.01ml Soln (100units/ml) SC SCH
[2024-08-08] MEDS: ACCU-CHEK COMFORT CURVE STRIP VI SCH (00:13)
[2024-08-08 05:12] LABS: Basophils # (auto) 0.1 10 ^3/uL (0-0.2); Basophils % (auto) 0.6 % (0.0-2.0); Eosinophils # (auto) 0.1 10 ^3/uL (0-0.8); Eosinophils % (auto) 0.6 % (0.0-7.0); Hematocrit 32.6 % (41.0-53.0); Hemoglobin 10.7 g/dL (13.5-17.5); Lymphocytes # (auto) 0.6 10 ^3/uL (0.4-5.4); Lymphocytes % (auto) 4.4 % (10.0-50.0); Mean Corpuscular Hemoglobin 27.8 pg (28.0-32.0); Mean Corpuscular Volume 84.2 fL (80.0-100.0); Monocytes # (auto) 0.9 10 ^3/uL (0-1.3); Monocytes % (auto) 6.3 % (0.0-12.0); Neutrophils # (auto) 12.4 10 ^3/uL (1.6-8.6); Neutrophils % (auto) 88.1 % (37.0-80.0); Platelet Count (auto) 275 10^3/uL (140-450); Red Blood Cells 3.87 10^6/uL (4.5-5.90); Red Cell Distribution Width 16.2 % (11.8-14.3); White Blood Cell 14.1 10^3/uL (4.4-10.8)
[2024-08-08 05:21] LABS: Alanine Aminotransferase 21 U/L (7-40); Alkaline Phosphatase 91 U/L (46-116); Anion Gap 8 (5-15); Aspartate Aminotransferase 39 U/L (13-40); BUN/Creatinine Ratio 31.4 (10.0-20.0); Blood Urea Nitrogen 22 mg/dL (9-23); Calcium 9.2 mg/dL (8.7-10.4); Carbon Dioxide 28 mmol/L (20-31); Chloride 102 mmol/L (98-107); Magnesium 1.9 mg/dL (1.6-2.6); Potassium 3.8 mmol/L (3.5-5.1); Sodium 138 mmol/L (136-145); Triglycerides 80 mg/dL (< 150)
[2024-08-08 05:22] LABS: Bilirubin, Total 0.5 mg/dL (0.2-1.0); Phosphorus 2.9 mg/dL (2.4-5.1)
[2024-08-08 05:37] LABS: Albumin 2.4 g/dL (3.2-4.8); Glucose 151 mg/dL (74-106); Total Protein 5.2 g/dL (5.7-8.2)
[2024-08-08] MEDS: LEVOTHYROXINE SODIUM 25 MCG TAB PO SCH (06:12)
[2024-08-08] MEDS: LEVOTHYROXINE SODIUM 112 MCG TAB PO SCH (06:12)
[2024-08-08 08:48] LABS: Base Excess 3.7 mmol/L (-2.0-3.0)
[2024-08-08] MEDS: VANCOMYCIN 750MG KIT 100 ML IV SCH (13:52)
--- NOTE | 2024-08-08 18:23 | DVHPNRES ---
Progress Note Date Seen: Aug 08, 2024 Resident Creating Document: SUKHDEV RIOS RESIDENT Has the PT tested + for MRSA If YES, has PT been informed?: No Medical Necessity Reason Pt with a Central, PICC or Fol: Yes The following are medically ne: Calhoun Catheter Reason for calhoun catheter: Strict I&O Subjective Review of Systems Patient is a 78-year-old male with past medical history of CABG x4, hypothyroidism, hypertension, who presented to the ED with chief complaint of generalized weakness, feeling tired productive cough for the past two weeks. The patient states that has not been feeling himself in the past two weeks, with increased fatigue and that his family members have also noticed it him strange. Upon admission, the patient denied shortness of breath, chest pain, abdominal tenderness, weight loss, fever/chills, night sweats or any other symptoms at this time. The patient reports a previous travels to [place] in March but no recent travels outside the country or any sick contacts. On admission patient was tachypneic and slightly hypoxic requiring oxygen through nasal cannula. Initial chest x-ray was performed showing multiple ill-defined nodules of various sizes. We performed a CT scan of the chest which showed multiple well- circumscribed chest nodules with mild bilateral pleural effusion. Patient will be admitted for further assessment and management. Past medical history: Coronary artery disease status post CABG, hypothyroidism, hypertension Past surgical history: CABG Social history: Denies any history of smoking, alcohol, drug use, worked at [employer] Home medications: Atenolol 12.5 mg, lisinopril 10 mg, Synthroid 137 mcg daily, atorvastatin 40 mg daily, aspirin 80 mg daily Review of systems Patient seen and examined at bedside. Patient reports feeling tired and weak and has increased effort for breathing. Denies chest pain, abdominal pain, nausea or vomiting on 60 L oxygen via high-flow, respiratory rate continues to be 15-20/min swallow eval done and patient started on pureed diet Objective vital signs Vital Sign Date Time Temp Pulse Resp B/P (MAP) Pulse Ox O2 Delivery O2 Flow Rate FiO2 08/08/24 18:15 113 24 103/53 (70) 89 08/08/24 16:00 98.6 98.6 08/08/24 16:00 Hi-Flow Heated NC+ 60 100 100 Total Intake and Output 08/07/24 08/07/24 08/08/24 15:00 23:00 07:00 Intake Total 133.28 ml 240.28 ml 604.28 ml Output Total 500 ml 550 ml Balance 133.28 ml -259.72 ml 54.28 ml medications Current Medications Medications Dose Ordered Sig/Laurence Route Start Time Stop Time Status Last Admin Dose Admin Acetaminophen 500 mg Q4HPRN PRN PO 07/26/24 05:30 Ipratropium [place] 0.5 mg Q6HR NEB 07/27/24 00:00 08/08/24 11:50 0.5 MG Levalbuterol HCl 0.625 mg Q6HR NEB 07/30/24 06:00 08/08/24 11:50 0.625 MG Meropenem 50 ml @ 17 mls/hr Q8H IV 07/31/24 18:00 08/08/24 17:07 17 MLS/HR Vancomycin HCl 0 ml @ 0 mls/hr UD IV 07/31/24 14:45 Melatonin 5 mg HS PO 07/31/24 23:48 08/05/24 22:25 5 MG Furosemide 20 mg BIDD IV 08/03/24 18:00 08/08/24 17:07 20 MG Ketorolac Tromethamine 15 mg Q8HPRN PRN IV 08/06/24 23:15 08/11/24 23:14 08/07/24 21:56 15 MG Amino Acids 0 ml @ 0 mls/hr PER PHARMACY IV 08/07/24 20:00 Amino Acids/ Electrolytes/ Dextrose 1,000 ml @ 41 mls/hr DAILY@2200 IV 08/07/24 22:00 08/07/24 21:55 41 MLS/HR Diagnostic Test (Pha) 1 strip Q6HR 08/08/24 00:00 08/08/24 12:15 1 STRIP Insulin Human Regular FOLLOW SLIDING SCALE Q6HR SC 08/08/24 00:00 08/08/24 12:16 4 UNITS Dextrose 50 ml UD IV 08/07/24 22:00 Levothyroxine Sodium 112 mcg QAM@0600 PO 08/08/24 06:00 08/08/24 06:12 112 MCG Levothyroxine Sodium 25 mcg QAM@0600 PO 08/08/24 06:00 08/08/24 06:12 25 MCG Vancomycin HCl 100 ml @ 100 mls/hr Q16H IV 08/08/24 13:00 08/08/24 13:52 100 MLS/HR Examination Constitutional: Patient was to time, place and person and is currently on high- flow oxygen at 60 L/min and has a respiratory rate of 15 to 20/min Gen - no pallor, no icterus, no cyanosis, no clubbing, no LAD, trace bilateral pitting edema. Skin - Patients skin is warm and dry.. HEENT - normocephalic, atraumatic, dry mucous membranes. Neck - full ROM, no LAD, no JVD Pulmonary - B/L diminished breath sounds with basilar inspiratory crackles , no wheezing cardiovascular - regular S1,S2 heard, no added sounds, no murmurs heard. GI - soft, nontender abdomen. no hepatospleenomegaly. Bowel sounds normoactive Neurological - Bilateral upper extremity strength 4/5, bilateral lower extremity strength 4/5, no facial droop, normal speech, no tremor, no sensory deficiets. laboratory and microbiology Laboratory Tests 08/08/24 04:40 Test 08/08/24 04:40 Range/Units Serum Glucose 151 H 74-106 mg/dL Microbiology Date/Time Source Procedure Growth Status 08/06/24 02:40 Nose MRSA Screen - Final Complete 08/01/24 16:25 Pleural Fluid Gram Stain - Final Complete 08/01/24 16:25 Pleural Fluid Body Fluid Culture - Final Complete 07/26/24 15:00 Sputum Gram Stain - Final Complete 07/26/24 15:00 Sputum Respiratory Culture - Final Complete 07/25/24 19:08 Blood Blood Culture - Final NO GROWTH AFTER 5 DAYS OF INCUBATION. Complete Problem List/Assessment/Plan Problem List/Assessment/Plan Neurology Patient was oriented to time, place and person and has no deficit but is drowsy in bed. Respiratory Acute hypoxic respiratory failure Multiple pulmonary nodules, med metastasis likely from primary bladder carcinoma Possible gram +/- bacterial pneumonia Bilateral pleural effusion, likely infectious/malignancy SIRS with acute organ dysfunction -initial chest x-ray showed multiple ill-defined nodules of various size widespread on bilateral lung gomes -CT scan of the chest showed multiple well-circumscribed chest nodules with bilateral mild pleural effusion -sputum culture showed growth of normal oropharyngeal nithya -coccidiomycosis antibody negative -pulmonary nodules biopsy performed 07/29/24, which reports metastatic carcinoma, 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 Acute on chronic Diastolic heart failure Moderate LVH Mild mitral stenosis, severe mitral annular calcification with enlarged left atrium new onset atrial fibrillation - BNP was 387.4 - EKG showed sinus rhythm with nonspecific T-waves inversion in leads III, AVF, V5, V6 - blood pressure WNL, no vasopressor requirement - Lasix 20 mg IV b.i.d. 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 Endocrinology Hypothyroidism -TSH was 12.89, free T4 0.87 and total T3 0.42 -continue levothyroxine 137 mcg q.a.m. Diet: started clinimix DVT prophylaxis: Enoxaparin PUD prophylaxis: Protonix Calhoun catheter inserted on 07/31 Goals of care discussed with the patient's son and daughter as well as patient himself full over 35 minutes. Patient is medical diagnosis of likely bladder cancer with Mets to lungs discussed in detail with the patient and his family including his son Kwaku and his siblings and explained about his poor prognosis. Patient alert and oriented X 4 and decided that he did not want to be intubated or resuscitated. Code status: DNR time spent 23 mins critical Care time spent excluding procedures: 51 minutes Plan discussed with Dr. Mcleod Plan discussed with: Patient, Daughter, Son, Other (RN ( Kristofer )) My Orders My Orders Orders - SUKHDEV RIOS Procedure Category Date Status Time Abg W/ Co-Ox RT 08/08/24 Logged 06:00 Clinimix Per Pharmacy PHA 08/07/24 In Process 20:00 Amino Acid Infusion PHA 08/07/24 In Process In D10w (Clinimix 4. 22:00 Glucose Blood PHA 08/08/24 In Process (Accu-Chek Comfort 00:00 Insulin R (Human) PHA 08/08/24 In Process (Insulin R) 00:00 Dextrose 50% Syringe PHA 08/07/24 In Process 22:00 Clinimix Per Pharmacy [facility] 08/07/24 In Process 22:[address] 08/08/24 Logged 12:00 Pt Request For Service PT 08/08/24 Logged 12:00 Renal Function Test LAB 08/09/24 Verified 04:00 Magnesium LAB 08/09/24 Verified 04:00 Clinimix Per Pharmacy [facility] 08/08/24 In Process 22:00 Pureed DIET 08/08/24 Transmitted Dinner Dietary Evaluation Review Comments: 1) Ensure Enlive 240ml BID 2) brandy 1 pk BID 3) Continue current plan of care Expected Outcomes/Goals: Pt will meet 75% estimated needs Fu 3-5 days Date of Service: Aug 08, 2024 Billing Provider: YESENIA MCLEOD MD Common Visit Codes: [id number] CARE 30-74 MIN SUKHDEV RIOS RESIDENT Aug 08, 2024 18:23 YESENIA MCLEOD MD Aug 11, 2024 12:34
[2024-08-09] VITALS (104 sets, daily range): BP systolic 92–143; BP diastolic 32–68; PULSE 74–120; RESP 14–32; TEMP 98–100.2; O2SAT 83–93
[2024-08-09 04:53] LABS: Basophils # (auto) 0.1 10 ^3/uL (0-0.2); Basophils % (auto) 0.4 % (0.0-2.0); Eosinophils # (auto) 0.1 10 ^3/uL (0-0.8); Eosinophils % (auto) 0.7 % (0.0-7.0); Hematocrit 34.3 % (41.0-53.0); Hemoglobin 11.2 g/dL (13.5-17.5); Lymphocytes # (auto) 0.5 10 ^3/uL (0.4-5.4); Lymphocytes % (auto) 3.8 % (10.0-50.0); Mean Corpuscular Hemoglobin 27.2 pg (28.0-32.0); Mean Corpuscular Hgb Conc. 32.6 g/dL (32.0-36.0); Mean Corpuscular Volume 83.5 fL (80.0-100.0); Monocytes # (auto) 0.8 10 ^3/uL (0-1.3); Monocytes % (auto) 5.7 % (0.0-12.0); Neutrophils # (auto) 12.5 10 ^3/uL (1.6-8.6); Neutrophils % (auto) 89.4 % (37.0-80.0); Platelet Count (auto) 286 10^3/uL (140-450); Red Blood Cells 4.11 10^6/uL (4.5-5.90); Red Cell Distribution Width 16.5 % (11.8-14.3)
[2024-08-09 05:06] LABS: Chloride 101 mmol/L (98-107)
[2024-08-09 05:07] LABS: Anion Gap 8 (5-15); Calcium 9.3 mg/dL (8.7-10.4); Carbon Dioxide 27 mmol/L (20-31); Potassium 3.2 mmol/L (3.5-5.1); Sodium 136 mmol/L (136-145)
[2024-08-09 05:12] LABS: GFR African American 178 mL/min; GFR Non-African American 147 mL/min
[2024-08-09 05:13] LABS: BUN/Creatinine Ratio 47.4 (10.0-20.0); Blood Urea Nitrogen 27 mg/dL (9-23); Glucose 153 mg/dL (74-106); Magnesium 1.9 mg/dL (1.6-2.6)
[2024-08-09 05:14] LABS: Albumin 2.3 g/dL (3.2-4.8)
[2024-08-09 05:15] LABS: Phosphorus 1.5 mg/dL (2.4-5.1)
[2024-08-09] MEDS: POTASSIUM CHL 20MEQ/50ML 50 ML IV SCH (06:08)
[2024-08-09 09:12] LABS: Base Excess 4.4 mmol/L (-2.0-3.0)
[2024-08-09] MEDS ORDERED: POTASSIUM CHLORIDE 40 MEQ, LIDOCAINE 1% (LOCAL ANESTH.) 4 ML in SODIUM CHL 0.9% 250 ML IV ONE (13:00)
--- NOTE | 2024-08-09 13:47 | DVHPNRES ---
Progress Note Date Seen: Aug 09, 2024 Resident Creating Document: SUKHDEV RIOS RESIDENT Has the PT tested + for MRSA If YES, has PT been informed?: No Medical Necessity Reason Pt with a Central, PICC or Fol: Yes The following are medically ne: Calhoun Catheter Reason for calhoun catheter: Strict I&O Subjective Review of Systems Patient is a 78-year-old male with past medical history of CABG x4, hypothyroidism, hypertension, who presented to the ED with chief complaint of generalized weakness, feeling tired productive cough for the past two weeks. The patient states that has not been feeling himself in the past two weeks, with increased fatigue and that his family members have also noticed it him strange. Upon admission, the patient denied shortness of breath, chest pain, abdominal tenderness, weight loss, fever/chills, night sweats or any other symptoms at this time. The patient reports a previous travels to [place] in March but no recent travels outside the country or any sick contacts. On admission patient was tachypneic and slightly hypoxic requiring oxygen through nasal cannula. Initial chest x-ray was performed showing multiple ill-defined nodules of various sizes. We performed a CT scan of the chest which showed multiple well- circumscribed chest nodules with mild bilateral pleural effusion. Patient will be admitted for further assessment and management. Past medical history: Coronary artery disease status post CABG, hypothyroidism, hypertension Past surgical history: CABG Social history: Denies any history of smoking, alcohol, drug use, worked at [employer] Home medications: Atenolol 12.5 mg, lisinopril 10 mg, Synthroid 137 mcg daily, atorvastatin 40 mg daily, aspirin 80 mg daily Review of systems Patient seen and examined at bedside. Denies chest pain, abdominal pain, nausea or vomiting on 60 L oxygen via high-flow, respiratory rate continues to be 15-20/min on pureed diet Objective vital signs Vital Sign Date Time Temp Pulse Resp B/P (MAP) Pulse Ox O2 Delivery O2 Flow Rate FiO2 08/09/24 12:19 109 30 88 08/09/24 12:00 Hi-Flow Heated NC+ 60 100 100 08/09/24 12:00 100.2 134/53 (80) 100.2 Total Intake and Output 08/08/24 08/08/24 08/09/24 15:00 23:00 07:00 Intake Total 614 ml 542.30 ml 686.28 ml Output Total 650 ml 275 ml Balance 614 ml -107.70 ml 411.28 ml medications Current Medications Medications Dose Ordered Sig/Laurence Route Start Time Stop Time Status Last Admin Dose Admin Acetaminophen 500 mg Q4HPRN PRN PO 07/26/24 05:30 Ipratropium [place] 0.5 mg Q6HR NEB 07/27/24 00:00 08/09/24 12:20 0.5 MG Levalbuterol HCl 0.625 mg Q6HR NEB 07/30/24 06:00 08/09/24 12:19 0.625 MG Meropenem 50 ml @ 17 mls/hr Q8H IV 07/31/24 18:00 08/09/24 09:05 17 MLS/HR Vancomycin HCl 0 ml @ 0 mls/hr UD IV 07/31/24 14:45 Melatonin 5 mg HS PO 07/31/24 23:48 08/08/24 21:50 5 MG Furosemide 20 mg BIDD IV 08/03/24 18:00 08/09/24 05:46 20 MG Ketorolac Tromethamine 15 mg Q8HPRN PRN IV 08/06/24 23:15 08/11/24 23:14 08/08/24 21:51 15 MG Amino Acids 0 ml @ 0 mls/hr PER PHARMACY IV 08/07/24 20:00 Amino Acids/ Electrolytes/ Dextrose 1,000 ml @ 41 mls/hr DAILY@2200 IV 08/07/24 22:00 08/08/24 21:51 41 MLS/HR Diagnostic Test (Pha) 1 strip Q6HR 08/08/24 00:00 08/09/24 12:00 1 STRIP Insulin Human Regular FOLLOW SLIDING SCALE Q6HR SC 08/08/24 00:00 08/09/24 12:01 8 UNITS Dextrose 50 ml UD IV 08/07/24 22:00 Levothyroxine Sodium 112 mcg QAM@0600 PO 08/08/24 06:00 08/09/24 05:46 112 MCG Levothyroxine Sodium 25 mcg QAM@0600 PO 08/08/24 06:00 08/09/24 05:46 25 MCG Vancomycin HCl 100 ml @ 100 mls/hr Q16H IV 08/08/24 13:00 08/09/24 05:01 100 MLS/HR Examination Constitutional: Patient was to time, place and person and is currently on high- flow oxygen at 60 L/min and has a respiratory rate of 15 to 20/min Gen - no pallor, no icterus, no cyanosis, no clubbing, no LAD, trace bilateral pitting edema. Skin - Patients skin is warm and dry.. HEENT - normocephalic, atraumatic, dry mucous membranes. Neck - full ROM, no LAD, no JVD Pulmonary - B/L diminished breath sounds with basilar inspiratory crackles , no wheezing cardiovascular - regular S1,S2 heard, no added sounds, no murmurs heard. GI - soft, nontender abdomen. no hepatospleenomegaly. Bowel sounds normoactive Neurological - Bilateral upper extremity strength 4/5, bilateral lower extremity strength 4/5, no facial droop, normal speech, no tremor, no sensory deficiets. laboratory and microbiology Laboratory Tests 08/09/24 04:38 08/09/24 04:37 Test 08/09/24 04:38 Range/Units Serum Glucose 153 H 74-106 mg/dL Microbiology Date/Time Source Procedure Growth Status 08/06/24 02:40 Nose MRSA Screen - Final Complete 08/01/24 16:25 Pleural Fluid Gram Stain - Final Complete 08/01/24 16:25 Pleural Fluid Body Fluid Culture - Final Complete 07/26/24 15:00 Sputum Gram Stain - Final Complete 07/26/24 15:00 Sputum Respiratory Culture - Final Complete 07/25/24 19:08 Blood Blood Culture - Final NO GROWTH AFTER 5 DAYS OF INCUBATION. Complete Problem List/Assessment/Plan Problem List/Assessment/Plan Neurology Patient was oriented to time, place and person and has no deficit but is drowsy in bed. Respiratory Acute hypoxic respiratory failure Multiple pulmonary nodules, med metastasis likely from primary bladder carcinoma Possible gram +/- bacterial pneumonia Bilateral pleural effusion, likely infectious/malignancy SIRS with acute organ dysfunction -initial chest x-ray showed multiple ill-defined nodules of various size widespread on bilateral lung gomes -CT scan of the chest showed multiple well-circumscribed chest nodules with bilateral mild pleural effusion -sputum culture showed growth of normal oropharyngeal nithya -coccidiomycosis antibody negative -pulmonary nodules biopsy performed 07/29/24, which reports metastatic carcinoma, 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 Acute on chronic Diastolic heart failure Moderate LVH Mild mitral stenosis, severe mitral annular calcification with enlarged left atrium new onset atrial fibrillation - BNP was 387.4 - EKG showed sinus rhythm with nonspecific T-waves inversion in leads III, AVF, V5, V6 - blood pressure WNL, no vasopressor requirement - Lasix 20 mg IV b.i.d. - on amiodarone /oncology ?bladder Cancer with likely metastasis to the lungs Prostatomegaly likely BPH r/o malignancy ?UTI - CT of abdomen and pelvis showed irregular calcified mass and thickening of the wall of the bladder which is concerning for malignancy - consulted Urology for cystoscopy but has not been able to be performed due to patient's poor status and high oxygen supplementation. 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 Endocrinology Hypothyroidism -TSH was 12.89, free T4 0.87 and total T3 0.42 -continue levothyroxine 137 mcg q.a.m. Diet: started clinimix DVT prophylaxis: Enoxaparin PUD prophylaxis: Protonix Calhoun catheter inserted on 07/31 Goals of care discussed with the patient's son and daughter as well as patient himself full over 35 minutes. Patient is medical diagnosis of likely bladder cancer with Mets to lungs discussed in detail with the patient and his family including his son Kwaku and his siblings and explained about his poor prognosis. Patient alert and oriented X 4 and decided that he did not want to be intubated or resuscitated. Code status: DNR time spent 23 mins critical Care time spent excluding procedures: 41 minutes Plan discussed with Dr. Mcleod Plan discussed with: Patient, Other (RN ( Kristofer )) My Orders My Orders Orders - SUKHDEV RIOS RESIDENT Procedure Category Date Status Time Clinimix Per Pharmacy [facility] 08/08/24 In Process 22:00 Pureed DIET 08/08/24 Transmitted Dinner Abg W/ Co-Ox RT 08/09/24 Logged 04:00 Sodium Phosphates PHA 08/09/24 In Process 12:15 Comprehensive LAB 08/10/24 Verified Metabolic Panel 04:00 Magnesium LAB 08/10/24 Verified 04:00 Phosphorus LAB 08/10/24 Verified 04:00 Clinimix Per Pharmacy [facility] 08/09/24 In Process 22:00 Potassium Chloride PHA 08/09/24 In Process (Potassium Chloride). 13:00 Pharmacy [facility] 08/09/24 In Process Clarification: 23:59 Dietary Evaluation Review Comments: 1) Ensure Enlive 240ml BID 2) brandy 1 pk BID 3) Continue current plan of care Expected Outcomes/Goals: Pt will meet 75% estimated needs Fu 3-5 days Date of Service: Aug 09, 2024 Billing Provider: YESENIA MCLEOD MD Common Visit Codes: 09578-[id number] CARE 30-74 MIN SUKHDEV RIOS RESIDENT Aug 09, 2024 13:47 YESENIA MCLEOD MD Aug 11, 2024 12:49
[2024-08-09] MEDS: SODIUM PHOSPHATES 40 MEQ in D5W 5% 250 ML IV ONE (13:56)
[2024-08-10] VITALS (107 sets, daily range): BP systolic 89–151; BP diastolic 40–78; PULSE 81–132; RESP 15–31; TEMP 97.8–99.6; O2SAT 80–97
[2024-08-10] MEDS: MORPHINE SULFATE INJ 2 MG/ml SYRG IV PRN (05:05)
[2024-08-10 05:41] LABS: Basophils # (auto) 0.1 10 ^3/uL (0-0.2); Basophils % (auto) 0.7 % (0.0-2.0); Eosinophils # (auto) 0.1 10 ^3/uL (0-0.8); Eosinophils % (auto) 0.5 % (0.0-7.0); Hematocrit 36.7 % (41.0-53.0); Hemoglobin 11.9 g/dL (13.5-17.5); Lymphocytes # (auto) 0.5 10 ^3/uL (0.4-5.4); Lymphocytes % (auto) 3.5 % (10.0-50.0); Mean Corpuscular Hemoglobin 27.3 pg (28.0-32.0); Mean Corpuscular Hgb Conc. 32.5 g/dL (32.0-36.0); Monocytes # (auto) 0.9 10 ^3/uL (0-1.3); Monocytes % (auto) 6.3 % (0.0-12.0); Neutrophils # (auto) 13.3 10 ^3/uL (1.6-8.6); Nucleated Red Blood Cells % 0.1 %; Platelet Count (auto) 275 10^3/uL (140-450); Red Blood Cells 4.38 10^6/uL (4.5-5.90); Red Cell Distribution Width 16.7 % (11.8-14.3); White Blood Cell 14.9 10^3/uL (4.4-10.8)
[2024-08-10 05:55] LABS: Alanine Aminotransferase 25 U/L (7-40); Alkaline Phosphatase 115 U/L (46-116); Anion Gap 9 (5-15); BUN/Creatinine Ratio 38.2 (10.0-20.0); Blood Urea Nitrogen 21 mg/dL (9-23); Calcium 9.2 mg/dL (8.7-10.4); Carbon Dioxide 24 mmol/L (20-31); Chloride 101 mmol/L (98-107)
[2024-08-10 05:56] LABS: Bilirubin, Total 0.5 mg/dL (0.2-1.0)
[2024-08-10 06:14] LABS: Albumin 2.4 g/dL (3.2-4.8); Aspartate Aminotransferase 58 U/L (13-40); Glucose 179 mg/dL (74-106); Phosphorus 2.3 mg/dL (2.4-5.1); Potassium 3.5 mmol/L (3.5-5.1); Sodium 134 mmol/L (136-145); Total Protein 5.6 g/dL (5.7-8.2)
--- NOTE | 2024-08-10 06:14 | DVH ---
EXAM: XR Chest, 1 View CLINICAL INDICATION: pleural effusion TECHNIQUE: Frontal view of the chest. COMPARISON: XY CHEST XRAY 1 VIEW on DOS: 08/06/24, XY CHEST XRAY 1 VIEW on DOS: 08/02/24, XY CHEST PO RTABLE on DOS: 07/31/24, XY CHEST PORTABLE on DOS: 07/30/24, XY CHEST PORTABLE on DOS: 07/30/24 FINDINGS: LUNGS AND PLEURAL SPACES: Pulmonary congestion and edema. Pneumonia cannot be excluded. No pneumot horax. HEART: Unremarkable. No cardiomegaly. MEDIASTINUM: Unremarkable. Normal mediastinal contour. BONES/JOINTS: Unremarkable. No acute fracture. OTHER FINDINGS: . IMPRESSION: Pulmonary congestion and edema. Pneumonia cannot be excluded.
[2024-08-10] MEDS: SODIUM CHL 0.9% 50 ML IV ONE (07:45)
[2024-08-10 08:04] LABS: Base Excess 6.5 mmol/L (-2.0-3.0)
[2024-08-10] MEDS: AMIODARONE HCL 200 MG TAB PO SCH (08:57)
[2024-08-10 09:30] LABS: INR 1.09 (0.9-1.15); Partial Thromboplastin Time 32.3 SEC (24.5-34.5); Prothrombin Time 11.5 sec (9.3-11.8)
[2024-08-10] MEDS: POTASSIUM PHOSPHATE 22 MEQ in SODIUM CHL 0.9% 100 ML IV ONE (12:36)
[2024-08-10] MEDS: POTASSIUM CHL 20MEQ/50ML 50 ML IV ONE (12:36)
[2024-08-10] MEDS: LIDOCAINE 1% (LOCAL ANESTH.) PF 5ml SDV ID ONE (12:48)
--- NOTE | 2024-08-10 13:35 | DVHPNRES ---
Progress Note Date Seen: Aug 10, 2024 Resident Creating Document: SUKHDEV RIOS RESIDENT Has the PT tested + for MRSA If YES, has PT been informed?: No Medical Necessity Reason Pt with a Central, PICC or Fol: Yes The following are medically ne: Calhoun Catheter Reason for calhoun catheter: Strict I&O Subjective Review of Systems Patient is a 78-year-old male with past medical history of CABG x4, hypothyroidism, hypertension, who presented to the ED with chief complaint of generalized weakness, feeling tired productive cough for the past two weeks. The patient states that has not been feeling himself in the past two weeks, with increased fatigue and that his family members have also noticed it him strange. Upon admission, the patient denied shortness of breath, chest pain, abdominal tenderness, weight loss, fever/chills, night sweats or any other symptoms at this time. The patient reports a previous travels to [place] in March but no recent travels outside the country or any sick contacts. On admission patient was tachypneic and slightly hypoxic requiring oxygen through nasal cannula. Initial chest x-ray was performed showing multiple ill-defined nodules of various sizes. We performed a CT scan of the chest which showed multiple well- circumscribed chest nodules with mild bilateral pleural effusion. Patient will be admitted for further assessment and management. Past medical history: Coronary artery disease status post CABG, hypothyroidism, hypertension Past surgical history: CABG Social history: Denies any history of smoking, alcohol, drug use, worked at [employer] Home medications: Atenolol 12.5 mg, lisinopril 10 mg, Synthroid 137 mcg daily, atorvastatin 40 mg daily, aspirin 80 mg daily Review of systems Patient seen and examined at bedside. Denies chest pain, abdominal pain, nausea or vomiting ABG showed metabolic alkalosis with low PO2 52.3 Patient was more weak and somnolent, but alert and oriented x3, was not able to swallow pureed diet and had to be put NPO again on 60 L oxygen via high-flow, respiratory rate continues to be 15-20/min Objective vital signs Vital Sign Date Time Temp Pulse Resp B/P (MAP) Pulse Ox O2 Delivery O2 Flow Rate FiO2 08/10/24 11:52 96 20 89 08/10/24 11:46 Hi-Flow Heated NC+ 60 100 100 08/10/24 11:30 142/55 (84) 08/10/24 08:00 98.4 98.4 Total Intake and Output 08/09/24 08/09/24 08/10/24 15:00 23:00 07:00 Intake Total 762 ml 863 ml 640.32 ml Output Total 550 ml 200 ml Balance 762 ml 313 ml 440.32 ml medications Current Medications Medications Dose Ordered Sig/Laurence Route Start Time Stop Time Status Last Admin Dose Admin Acetaminophen 500 mg Q4HPRN PRN PO 07/26/24 05:30 Ipratropium [place] 0.5 mg Q6HR NEB 07/27/24 00:00 08/10/24 11:46 0.5 MG Levalbuterol HCl 0.625 mg Q6HR NEB 07/30/24 06:00 08/10/24 11:46 0.625 MG Meropenem 50 ml @ 17 mls/hr Q8H IV 07/31/24 18:00 08/10/24 08:57 17 MLS/HR Vancomycin HCl 0 ml @ 0 mls/hr UD IV 07/31/24 14:45 Melatonin 5 mg HS PO 07/31/24 23:48 08/09/24 21:06 5 MG Furosemide 20 mg BIDD IV 08/03/24 18:00 08/10/24 06:11 20 MG Ketorolac Tromethamine 15 mg Q8HPRN PRN IV 08/06/24 23:15 08/11/24 23:14 08/08/24 21:51 15 MG Diagnostic Test (Pha) 1 strip Q6HR 08/08/24 00:00 08/10/24 10:42 1 STRIP Insulin Human Regular FOLLOW SLIDING SCALE Q6HR SC 08/08/24 00:00 08/10/24 10:42 4 UNITS Dextrose 50 ml UD IV 08/07/24 22:00 Levothyroxine Sodium 112 mcg QAM@0600 PO 08/08/24 06:00 08/10/24 06:10 112 MCG Levothyroxine Sodium 25 mcg QAM@0600 PO 08/08/24 06:00 08/10/24 06:10 25 MCG Vancomycin HCl 100 ml @ 100 mls/hr Q16H IV 08/08/24 13:00 08/10/24 13:12 100 MLS/HR Lorazepam 0.5 mg Q6HP PRN IV 08/10/24 04:45 Morphine Sulfate 1 mg Q6HP PRN IV 08/10/24 04:45 08/10/24 05:05 1 MG Amiodarone HCl 200 mg Q12HR PO 08/10/24 10:00 Sodium Chloride 10 ml QSHIFT@10,22 IV 08/10/24 22:00 Examination Constitutional: Patient was to time, place and person and is currently on high- flow oxygen at 60 L/min and has a respiratory rate of 15 to 20/min Gen - no pallor, no icterus, no cyanosis, no clubbing, no LAD, trace bilateral pitting edema. Skin - Patients skin is warm and dry.. HEENT - normocephalic, atraumatic, dry mucous membranes. Neck - full ROM, no LAD, no JVD Pulmonary - B/L diminished breath sounds with basilar inspiratory crackles , no wheezing cardiovascular - regular S1,S2 heard, no added sounds, no murmurs heard. GI - soft, nontender abdomen. no hepatospleenomegaly. Bowel sounds normoactive Neurological - Bilateral upper extremity strength 3/5, bilateral lower extremity strength 3/5, no facial droop, normal speech, no tremor, no sensory deficiets. laboratory and microbiology Laboratory Tests 08/10/24 04:43 Test 08/10/24 04:43 Range/Units Serum Glucose 179 H 74-106 mg/dL Microbiology Date/Time Source Procedure Growth Status 08/06/24 02:40 Nose MRSA Screen - Final Complete 08/01/24 16:25 Pleural Fluid Gram Stain - Final Complete 08/01/24 16:25 Pleural Fluid Body Fluid Culture - Final Complete 07/26/24 15:00 Sputum Gram Stain - Final Complete 07/26/24 15:00 Sputum Respiratory Culture - Final Complete 07/25/24 19:08 Blood Blood Culture - Final NO GROWTH AFTER 5 DAYS OF INCUBATION. Complete Problem List/Assessment/Plan Problem List/Assessment/Plan Neurology Patient was oriented to time, place and person and has no deficit but is drowsy in bed. Respiratory Acute hypoxic respiratory failure Multiple pulmonary nodules, med metastasis likely from primary bladder carcinoma Possible gram +/- bacterial pneumonia Bilateral pleural effusion, likely infectious/malignancy Sepsis with acute organ dysfunction -initial chest x-ray showed multiple ill-defined nodules of various size widespread on bilateral lung gomes -CT scan of the chest showed multiple well-circumscribed chest nodules with bilateral mild pleural effusion -sputum culture showed growth of normal oropharyngeal nithya -coccidiomycosis antibody negative -pulmonary nodules biopsy performed 07/29/24, which reports metastatic carcinoma, 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 Acute on chronic Diastolic heart failure Moderate LVH Mild mitral stenosis, severe mitral annular calcification with enlarged left atrium new onset atrial fibrillation - BNP was 387.4 - EKG showed sinus rhythm with nonspecific T-waves inversion in leads III, AVF, V5, V6 - blood pressure WNL, no vasopressor requirement - Lasix 40 mg IV b.i.d. - on amiodarone /oncology ?bladder Cancer with likely metastasis to the lungs Prostatomegaly likely BPH r/o malignancy ?UTI - CT of abdomen and pelvis showed irregular calcified mass and thickening of the wall of the bladder which is concerning for malignancy - consulted Urology for cystoscopy but has not been able to be performed due to patient's poor status and high oxygen supplementation. 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 Endocrinology Hypothyroidism -TSH was 12.89, free T4 0.87 and total T3 0.42 -continue levothyroxine 137 mcg q.a.m. Diet: clinimix ( was not able to swallow pureed diet ) DVT prophylaxis: Enoxaparin PUD prophylaxis: Protonix PICC line inserted on 08/10 Calhoun catheter inserted on 07/31 Goals of care discussed with the patient's son and daughter as well as patient himself full over 35 minutes. Patient is medical diagnosis of likely bladder cancer with Mets to lungs discussed in detail with the patient and his family including his son Kwaku and his siblings and explained about his poor prognosis. Patient alert and oriented X 4 and decided that he did not want to be intubated or resuscitated. Code status: DNR time spent 23 mins Care time spent excluding procedures: 51 minutes Plan discussed with Dr. Sarah Plan discussed with: Patient, Daughter (bethanie), Son (kwaku), Other (RN ( Dionna )) My Orders My Orders Orders - SUKHDEV RIOS RESIDENT Procedure Category Date Status Time Chest Xray 1 View XY 08/10/24 Resulted 04:00 Abg W/ Co-Ox RT 08/10/24 Logged 04:00 Amiodarone Tablet PHA 08/10/24 In Process (Cordarone Tablet) 10:00 Potassium Phosphate PHA 08/10/24 In Process 09:30 Insert Midline ORDERS 08/10/24 Transmitted 07:44 * Picc Line Consult CONS 08/10/24 Transmitted 08:19 Us Guided Vascular US 08/10/24 Logged Access 12:22 Nursing Protocol Picc [facility] 08/10/24 In Process 12:22 Change Dressing Prn [facility] 08/10/24 In Process 12:22 Sodium Chloride Lock PHA 08/10/24 In Process (Saline Lock Ns) 22:00 Do Not Use Picc For [facility] 08/10/24 In Process Blood Cult 12:22 May Draw Blood From [facility] 08/10/24 In Process Picc 12:22 Ok To Use Picc [facility] 08/10/24 In Process 12:22 Change Picc Dressing [facility] 08/10/24 In Process Q7 Days 12:22 Dietary Evaluation Review Comments: 1) Ensure Enlive 240ml BID 2) brandy 1 pk BID 3) Continue current plan of care Expected Outcomes/Goals: Pt will meet 75% estimated needs Fu 3-5 days SUKHDEV RIOS RESIDENT Aug 10, 2024 13:35
[2024-08-10] MEDS: FUROSEMIDE 20 MG/2 ML VIAL IV ONE (14:22)
[2024-08-10] MEDS: FUROSEMIDE 20 MG/2 ML VIAL IV SCH (17:17)
[2024-08-10] MEDS: ENOXAPARIN SOD 40 MG/0.4 ML SYRINGE SC ONE (17:17)
[2024-08-10] MEDS: AMIODARONE 360mg/200mL PREMIX 200 ML IV SCH (17:18)
[2024-08-10] MEDS: SODIUM PHOSPHATES 20 MEQ in SODIUM CHL 0.9% 100 ML IV ONE (18:25)
[2024-08-10] MEDS: AMINO ACID INFUSION IN D10W 1,000 ML IV SCH (21:18)
[2024-08-10] MEDS: SODIUM CHLOR 0.9% PF (SALINE LOCK) 10ML VIAL/SYR IV SCH (21:19)
[2024-08-10] MEDS: LORazepam 2MG/ML-1ML VIAL IV PRN (21:20)
[2024-08-10] MEDS: CLINIMIX PER PHARMACY 0 ML IV SCH (21:49)
[2024-08-11] VITALS (99 sets, daily range): BP systolic 72–147; BP diastolic 20–63; PULSE 65–104; RESP 12–32; TEMP 97.8–99.7; O2SAT 81–94
[2024-08-11 06:17] LABS: Basophils # (auto) 0.2 10 ^3/uL (0-0.2); Basophils % (auto) 1.2 % (0.0-2.0); Eosinophils # (auto) 0.1 10 ^3/uL (0-0.8); Eosinophils % (auto) 0.4 % (0.0-7.0); Hematocrit 30.6 % (41.0-53.0); Hemoglobin 9.7 g/dL (13.5-17.5); Lymphocytes # (auto) 0.4 10 ^3/uL (0.4-5.4); Lymphocytes % (auto) 3.4 % (10.0-50.0); Mean Corpuscular Hemoglobin 27.7 pg (28.0-32.0); Mean Corpuscular Hgb Conc. 31.7 g/dL (32.0-36.0); Mean Corpuscular Volume 87.3 fL (80.0-100.0); Monocytes # (auto) 0.6 10 ^3/uL (0-1.3); Neutrophils # (auto) 11.3 10 ^3/uL (1.6-8.6); Platelet Count (auto) 213 10^3/uL (140-450); Red Cell Distribution Width 17.1 % (11.8-14.3); White Blood Cell 12.6 10^3/uL (4.4-10.8)
[2024-08-11 06:38] LABS: Magnesium 1.9 mg/dL (1.6-2.6)
--- NOTE | 2024-08-11 06:56 | DVH ---
CHEST RADIOGRAPH Indication: B/l pulmonary congestion Technique: Single frontal view of the chest was obtained COMPARISON: XY CHEST XRAY 1 VIEW on DOS: 08/10/24, XY CHEST XRAY 1 VIEW on DOS: 08/06/24, XY CHEST XRAY 1 VIEW on DOS: 08/02/24, XY CHEST PORTABLE on DOS: 07/31/24, XY CHEST PORTABLE on DOS: 07/30/24 FINDINGS: Lines and Tubes: New right peripherally inserted central catheter terminates within the superior vena cava. Lungs: Stable appearing slightly nodular diffuse patchy multifocal bilateral pulmonary airspace disea se in all lung zones, [id number]. Underlying pulmonary nodules and/or mass lesions can not be excluded given this appearance. Small bilateral pleural effusions. No pneumothorax. Cardiomediastinal contours: Unremarkable Bones: Unremarkable IMPRESSION: 1. Stable diffuse nodular appearing multifocal bilateral pulmonary airspace disease, [id number] an-left. Underlying nodules and/or masses not excluded. 2. Small bilateral pleural effusions. 3. New right PICC.
[2024-08-11] MEDS: LEVOTHYROXINE SODIUM 25 MCG TAB PO SCH (07:00)
[2024-08-11 07:52] LABS: Alanine Aminotransferase 15 U/L (7-40); Alkaline Phosphatase 90 U/L (46-116); Anion Gap 10 (5-15); Aspartate Aminotransferase 31 U/L (13-40); BUN/Creatinine Ratio 29.9 (10.0-20.0); Carbon Dioxide 22 mmol/L (20-31)
[2024-08-11 07:53] LABS: Bilirubin, Total 0.4 mg/dL (0.2-1.0)
[2024-08-11 08:13] LABS: Blood Urea Nitrogen 26 mg/dL (9-23); Calcium 8.1 mg/dL (8.7-10.4); Chloride 95 mmol/L (98-107); Potassium 3.3 mmol/L (3.5-5.1); Sodium 127 mmol/L (136-145); Total Protein 4.5 g/dL (5.7-8.2)
[2024-08-11 08:14] LABS: Glucose 662 mg/dL (74-106)
[2024-08-11] MEDS: ENOXAPARIN SOD 40 MG/0.4 ML SYRINGE SC SCH (09:19)
[2024-08-11 09:23] LABS: Base Excess 5.2 mmol/L (-2.0-3.0)
--- NOTE | 2024-08-11 12:08 | DVHPN2 ---
Progress Note - Dictate Date Seen: Aug 11, 2024 Has the PT tested + for MRSA If YES, has PT been informed?: No Medical Necessity Reason Pt with a Central, PICC or Fol: Yes The following are medically ne: Calhoun Catheter Reason for calhoun catheter: Strict I&O vital signs Vital Sign Date Time Temp Pulse Resp B/P (MAP) Pulse Ox O2 Delivery O2 Flow Rate FiO2 08/11/24 10:00 91 20 116/42 (66) 88 08/11/24 08:15 Facial BiPAP Mask 100 08/11/24 08:00 15 08/11/24 08:00 98.0 98.0 Total Intake and Output 08/10/24 08/10/24 08/11/24 15:00 23:00 07:00 Intake Total 153.50 ml 438.972 ml 861.28 ml Output Total 800 ml 300 ml Balance 153.50 ml -361.028 ml 561.28 ml medications Current Medications Medications Dose Ordered Sig/Laurence Route Start Time Stop Time Status Last Admin Dose Admin Acetaminophen 500 mg Q4HPRN PRN PO 07/26/24 05:30 Ipratropium [place] 0.5 mg Q6HR NEB 07/27/24 00:00 08/11/24 06:57 0.5 MG Levalbuterol HCl 0.625 mg Q6HR NEB 07/30/24 06:00 08/11/24 00:39 0.625 MG Meropenem 50 ml @ 17 mls/hr Q8H IV 07/31/24 18:00 08/11/24 09:18 17 MLS/HR Vancomycin HCl 0 ml @ 0 mls/hr UD IV 07/31/24 14:45 Melatonin 5 mg HS PO 07/31/24 23:48 08/10/24 21:19 5 MG Ketorolac Tromethamine 15 mg Q8HPRN PRN IV 08/06/24 23:15 08/11/24 23:14 08/11/24 03:12 15 MG Diagnostic Test (Pha) 1 strip Q6HR 08/08/24 00:00 08/11/24 11:56 1 STRIP Insulin Human Regular FOLLOW SLIDING SCALE Q6HR SC 08/08/24 00:00 08/11/24 11:56 4 UNITS Dextrose 50 ml UD IV 08/07/24 22:00 Vancomycin HCl 100 ml @ 100 mls/hr Q16H IV 08/08/24 13:00 08/11/24 05:07 100 MLS/HR Lorazepam 0.5 mg Q6HP PRN IV 08/10/24 04:45 08/11/24 10:07 0.5 MG Morphine Sulfate 1 mg Q6HP PRN IV 08/10/24 04:45 08/10/24 05:05 1 MG Sodium Chloride 10 ml QSHIFT@10,22 IV 08/10/24 22:00 08/11/24 09:24 10 ML Levothyroxine Sodium 75 mcg QAM PO 08/11/24 07:00 Amino Acids 0 ml @ 0 mls/hr PER PHARMACY IV 08/10/24 14:30 08/10/24 21:49 41 MLS/HR Enoxaparin Sodium 40 mg DAILY SC 08/11/24 10:00 Amino Acids/ Electrolytes/ Dextrose 1,000 ml @ 41 mls/hr DAILY@2200 IV 08/10/24 22:00 08/10/24 21:18 41 MLS/HR Potassium Chloride 100 ml @ 50 mls/hr Q2H IV 08/11/24 11:15 08/11/24 15:14 UNV laboratory and microbiology Laboratory Tests 08/11/24 05:17 Test 08/11/24 05:17 Range/Units Serum Glucose 662 #*H 74-106 mg/dL 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 h/o bladder cancer lung mets acute hypoxemic resp failure DNR/DNI events pt declining on bipap Fi02 100% received ativan earlier today CXR bilateral jones-ball opacities infiltrates superimposed pneumonia labs reviewed abg 7.48/49/46 critical Pa02 management plan cont bipap titrate settings to comfort pain control avoid over-sedation cont abx diuresis nutrition ' gi dvt proph prognosis very poor updated family at [facility] crit care time 35 min Dietary Evaluation Review Comments: 1) Ensure Enlive 240ml BID 2) brandy 1 pk BID 3) Continue current plan of care Expected Outcomes/Goals: Pt will meet 75% estimated needs Fu 3-5 days Plan discussed with: Spouse, Other (rn) KATARINA HERNÁNDEZ MD Aug 11, 2024 12:08
--- NOTE | 2024-08-11 12:27 | MEDREC ---
[facility] Intervention Section I [facility] Intervention: Deescalate AB based on CS, Review courses of therapy (The MRSA nares was negatvie. The final blood and sputum culture showed no growth. Please consider discontinuing Vancomycin because The Final wound culture only showed Coagulase Negative Staphylococcus which is a contamination) MAGED PABON Aug 11, 2024 12:27
[2024-08-11] MEDS: SODIUM CHL 0.9% 100 ML IV SCH (12:43)
[2024-08-11] MEDS: POTASSIUM CHL 20MEQ/50ML 50 ML IV SCH (13:08)
[2024-08-11 14:12] LABS: Hematocrit 35.2 % (41.0-53.0); Hemoglobin 11.3 g/dL (13.5-17.5)
--- NOTE | 2024-08-11 18:16 | DVHPN2 ---
Subjective Patient is a 78-year-old male with past medical history of CABG x4, hypothyroidism, hypertension, who presented to the ED with chief complaint of generalized weakness, feeling tired productive cough for the past two weeks. The patient states that has not been feeling himself in the past two weeks, with increased fatigue and that his family members have also noticed it him strange. Upon admission, the patient denied shortness of breath, chest pain, abdominal tenderness, weight loss, fever/chills, night sweats or any other symptoms at this time. The patient reports a previous travels to [place] in March but no recent travels outside the country or any sick contacts. On admission patient was tachypneic and slightly hypoxic requiring oxygen through nasal cannula. Initial chest x-ray was performed showing multiple ill-defined nodules of various sizes. We performed a CT scan of the chest which showed multiple well- circumscribed chest nodules with mild bilateral pleural effusion. Patient will be admitted for further assessment and management. Past medical history: Coronary artery disease status post CABG, hypothyroidism, hypertension Past surgical history: CABG Social history: Denies any history of smoking, alcohol, drug use, worked at [employer] Home medications: Atenolol 12.5 mg, lisinopril 10 mg, Synthroid 137 mcg daily, atorvastatin 40 mg daily, aspirin 80 mg daily Review of systems Patient seen and examined at bedside. Resting comfortably, on BiPAP, recent anxiety shortness of breath requiring Ativan. Reviewed: Care Plan, H&P, Labs, Medications, Previous Orders, Radiology Changes from previous H/P or p: No Changes General: Per HPI Objective Vitals Vital Signs Date Time Temp Pulse Resp B/P (MAP) Pulse Ox O2 Delivery O2 Flow Rate FiO2 08/11/24 18:00 101 24 137/39 (71) 91 08/11/24 16:25 Facial BiPAP Mask 100 08/11/24 16:00 98.0 98.0 08/11/24 16:00 15 Intake/Output Intake and Output 08/11/24 07:00 Intake Total 1453.752 ml Output Total 1100 ml Balance 353.752 ml Intake Oral 50 ml IV Total 1403.752 ml Output Urine Total 1100 ml Exam Constitutional: Patient was to time, place and person and is currently on high- flow oxygen at 60 L/min and has a respiratory rate of 15 to 20/min Gen - no pallor, no icterus, no cyanosis, no clubbing, no LAD, trace bilateral pitting edema. Skin - Patients skin is warm and dry.. HEENT - normocephalic, atraumatic, dry mucous membranes. Neck - full ROM, no LAD, no JVD Pulmonary - B/L diminished breath sounds with basilar inspiratory crackles , no wheezing cardiovascular - regular S1,S2 heard, no added sounds, no murmurs heard. GI - soft, nontender abdomen. no hepatospleenomegaly. Bowel sounds normoactive Neurological - Bilateral upper extremity strength 3/5, bilateral lower extremity strength 3/5, no facial droop, normal speech, no tremor, no sensory deficiets. General Appearance: Alert, Oriented X3, Cooperative, No acute distress HEENT: Atraumatic Lungs: Clear to auscultation Cardiovascular: Regular rate, Normal S1, Normal S2 Abdomen: Normal bowel sounds, Soft Neuro: Cranial nerves 3-12 NL Psych/Mental Status: Mental status NL Medications Current Medications Medications Dose Ordered Sig/Laurence Route Start Time Stop Time Status Last Admin Dose Admin Acetaminophen 500 mg Q4HPRN PRN PO 07/26/24 05:30 Ipratropium [place] 0.5 mg Q6HR NEB 07/27/24 00:00 08/11/24 12:17 0.5 MG Levalbuterol HCl 0.625 mg Q6HR NEB 07/30/24 06:00 08/11/24 12:17 0.625 MG Meropenem 50 ml @ 17 mls/hr Q8H IV 07/31/24 18:00 08/11/24 09:18 17 MLS/HR Vancomycin HCl 0 ml @ 0 mls/hr UD IV 07/31/24 14:45 Melatonin 5 mg HS PO 07/31/24 23:48 08/10/24 21:19 5 MG Ketorolac Tromethamine 15 mg Q8HPRN PRN IV 08/06/24 23:15 08/11/24 23:14 08/11/24 03:12 15 MG Diagnostic Test (Pha) 1 strip Q6HR 08/08/24 00:00 08/11/24 18:07 1 STRIP Insulin Human Regular FOLLOW SLIDING SCALE Q6HR SC 08/08/24 00:00 08/11/24 17:51 8 UNITS Dextrose 50 ml UD IV 08/07/24 22:00 Vancomycin HCl 100 ml @ 100 mls/hr Q16H IV 08/08/24 13:00 08/11/24 05:07 100 MLS/HR Lorazepam 0.5 mg Q6HP PRN IV 08/10/24 04:45 08/11/24 10:07 0.5 MG Morphine Sulfate 1 mg Q6HP PRN IV 08/10/24 04:45 08/10/24 05:05 1 MG Sodium Chloride 10 ml QSHIFT@10,22 IV 08/10/24 22:00 08/11/24 09:24 10 ML Levothyroxine Sodium 75 mcg QAM PO 08/11/24 07:00 Amino Acids 0 ml @ 0 mls/hr PER PHARMACY IV 08/10/24 14:30 08/10/24 21:49 41 MLS/HR Enoxaparin Sodium 40 mg DAILY SC 08/11/24 10:00 Amino Acids/ Electrolytes/ Dextrose 1,000 ml @ 41 mls/hr DAILY@2200 IV 08/10/24 22:00 08/10/24 21:18 41 MLS/HR Laboratory Results Laboratory Tests 08/11/24 05:17 08/11/24 13:44 Chemistry Test 08/11/24 05:17 Albumin 2.0 g/dL (3.2-4.8) L Calcium Level 8.1 mg/dL (8.7-10.4) L Magnesium Level 1.9 mg/dL (1.6-2.6) Phosphorus Level 3.0 mg/dL (2.4-5.1) Total Protein 4.5 g/dL (5.7-8.2) L LFT Test 08/11/24 05:17 Alanine Aminotransferase (ALT) 15 U/L (7-40) Alkaline Phosphatase 90 U/L (46-116) Aspartate Amino Transferase (AST) 31 U/L (13-40) Total Bilirubin 0.4 mg/dL (0.2-1.0) Urinalysis Test 07/26/24 12:05 Urine Color Light-orange (Yellow) Urine Clarity Turbid (Clear) H Urine pH 6.0 (5.0-9.0) Urine Specific [place] > 1.035 (1.001-1.035) Urine Protein 1+ (Negative) H Urine Ketones 1+ (Negative) H Urine Blood 3+ /uL (Negative) H Urine Nitrite Negative (Negative) Urine Bilirubin Negative (Negative) Urine Urobilinogen Normal mg/dL (Negative) Urine Leukocyte Esterase Trace /uL (Negative) Urine RBC 480 /hpf (0 - 3) Urine Microscopic WBC 47 /HPF (0-3) H Urine Squamous Epithelial Cells Few /hpf (<5) Urine Bacteria None seen /hpf (None Seen) Urine Mucus Few (None Seen) Urine Glucose Normal mg/dL (Normal) Blood Gas Results Test 08/11/24 08:34 Arterial Blood pH 7.482 (7.350-7.450) FiO2 % 100.0 Microbiology Microbiology Date/Time Source Procedure Growth Status 08/06/24 02:40 Nose MRSA Screen - Final Complete 08/01/24 16:25 Pleural Fluid Gram Stain - Final Complete 08/01/24 16:25 Pleural Fluid Body Fluid Culture - Final Complete 07/26/24 15:00 Sputum Gram Stain - Final Complete 07/26/24 15:00 Sputum Respiratory Culture - Final Complete 07/25/24 19:08 Blood Blood Culture - Final NO GROWTH AFTER 5 DAYS OF INCUBATION. Complete Labs and/or images reviewed: Labs reviewed by me, Image(s) reviewed by me Assessment/Plan Assessment/Plan Update 08/11Was anxious , some sob, given ativan and sleeping comfortably. A&O x3. Worsening hypoxia requiring changed from high-flow to BiPAP. He was on continuous BiPAP now. Wants to remain on full treatment but DNR DNI. We will continue treatment for now. Continue present primary team treatment plan. Patient on pureed diet. Being followed by pulmonology, GI. Urology wants to outpatient if patient improves. Given complete clinical picture if hypoxemic keeps to worsen slightly very poor prognosis patient could possibly 24 hours if hypoxemic conditions worsen. Daughter at bedside this POA and wishes to continuing to honor patient's final wishes of full treatment/DNR DNI. Creatinine is rising we will hold off any further Lasix. Chest x-ray looks unchanged . A.m. ABG on BiPAP 30/11 7.48/39/46 Neurology Patient was oriented to time, place and person and has no deficit but is drowsy in bed. Respiratory Acute hypoxic respiratory failure Multiple pulmonary nodules, med metastasis likely from primary bladder carcinoma Possible gram +/- bacterial pneumonia Bilateral pleural effusion, likely infectious/malignancy Sepsis with acute organ dysfunction -initial chest x-ray showed multiple ill-defined nodules of various size widespread on bilateral lung gomes -CT scan of the chest showed multiple well-circumscribed chest nodules with bilateral mild pleural effusion -sputum culture showed growth of normal oropharyngeal nithya -coccidiomycosis antibody negative -pulmonary nodules biopsy performed 07/29/24, which reports metastatic carcinoma, 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 Acute on chronic Diastolic heart failure Moderate LVH Mild mitral stenosis, severe mitral annular calcification with enlarged left atrium new onset atrial fibrillation - BNP was 387.4 - EKG showed sinus rhythm with nonspecific T-waves inversion in leads III, AVF, V5, V6 - blood pressure WNL, no vasopressor requirement - holding Lasix 40 mg IV b.i.d. - on amiodarone /oncology ?bladder Cancer with likely metastasis to the lungs Prostatomegaly likely BPH r/o malignancy ?UTI - CT of abdomen and pelvis showed irregular calcified mass and thickening of the wall of the bladder which is concerning for malignancy - consulted Urology for cystoscopy but has not been able to be performed due to patient's poor status and high oxygen supplementation. 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 Endocrinology Hypothyroidism -TSH was 12.89, free T4 0.87 and total T3 0.42 -continue levothyroxine 137 mcg q.a.m. Diet: clinimix ( was not able to swallow pureed diet ) DVT prophylaxis: Enoxaparin PUD prophylaxis: Protonix PICC line inserted on 08/10 [place] catheter inserted on 07/31 Goals of care discussed with the patient's son and daughter as well as patient himself full over 35 minutes. Patient is medical diagnosis of likely bladder cancer with Mets to lungs discussed in detail with the patient and his family including his son Kwaku and his siblings and explained about his poor prognosis. Patient alert and oriented X 4 and decided that he did not want to be intubated or resuscitated. Code status: DNR time spent 23 mins Care time spent excluding procedures: 51 minutes Plan discussed with: Daughter Date of Service: Aug 11, 2024 Billing Provider: CHRISS LOUISE MD Common Visit Codes: [id number] CARE 30-74 MIN CHRISS LOUISE MD Aug 11, 2024 18:16
[2024-08-11] MEDS: SODIUM PHOSPHATES 20 MEQ in SODIUM CHL 0.9% 100 ML IV ONE (19:48)
[2024-08-12] VITALS (66 sets, daily range): BP systolic 60–147; BP diastolic 14–72; PULSE 48–107; RESP 15–26; TEMP 98.1–98.9; O2SAT 55–95
[2024-08-12 07:19] LABS: Alanine Aminotransferase 21 U/L (7-40); Anion Gap 14 (5-15); Carbon Dioxide 24 mmol/L (20-31); Potassium 4.4 mmol/L (3.5-5.1)
[2024-08-12 07:20] LABS: Aspartate Aminotransferase 31 U/L (13-40); Phosphorus 4.7 mg/dL (2.4-5.1)
[2024-08-12 07:21] LABS: Albumin 2.1 g/dL (3.2-4.8); Alkaline Phosphatase 137 U/L (46-116); Bilirubin, Total 0.3 mg/dL (0.2-1.0); Blood Urea Nitrogen 40 mg/dL (9-23); Chloride 96 mmol/L (98-107); Glucose 355 mg/dL (74-106); Sodium 134 mmol/L (136-145); Total Protein 5.2 g/dL (5.7-8.2)
[2024-08-12] MEDS: NOREPINEPHRINE 8 MG/250ML KIT 250 ML IV SCH ×2 (08:02→11:32)
[2024-08-12 08:03] LABS: Hematocrit 36.4 % (41.0-53.0); Hemoglobin 11.5 g/dL (13.5-17.5); Mean Corpuscular Hemoglobin 27.5 pg (28.0-32.0); Mean Corpuscular Hgb Conc. 31.7 g/dL (32.0-36.0); Mean Corpuscular Volume 86.8 fL (80.0-100.0); Platelet Count (auto) 304 10^3/uL (140-450); Red Blood Cells 4.19 10^6/uL (4.5-5.90); Red Cell Distribution Width 17.2 % (11.8-14.3); White Blood Cell 26.2 10^3/uL (4.4-10.8)
[2024-08-12] MEDS: NOREPINEPHRINE 8 MG/250ML KIT 250 ML IV ONE (08:03)
[2024-08-12 08:12] LABS: Basophils % (manual) 0 (0.0-2.0); Blast Cells 0; Eosinophils % (manual) 0 (0-7); Metamyelocytes % 0; Myelocytes % 0; Promyelocytes % 0; Reactive Lymphocytes 0
[2024-08-12 09:02] LABS: Band Neutrophils % (manual) 5; Lymphocytes % (manual) 3 (10.0-50.0); Monocytes % (manual) 2 (0-12); Platelet Estimate Adequate
--- NOTE | 2024-08-12 09:51 | DVHPN2 ---
Subjective Patient is a 78-year-old male with past medical history of CABG x4, hypothyroidism, hypertension, who presented to the ED with chief complaint of generalized weakness, feeling tired productive cough for the past two weeks. The patient states that has not been feeling himself in the past two weeks, with increased fatigue and that his family members have also noticed it him strange. Upon admission, the patient denied shortness of breath, chest pain, abdominal tenderness, weight loss, fever/chills, night sweats or any other symptoms at this time. The patient reports a previous travels to [place] in March but no recent travels outside the country or any sick contacts. On admission patient was tachypneic and slightly hypoxic requiring oxygen through nasal cannula. Initial chest x-ray was performed showing multiple ill-defined nodules of various sizes. We performed a CT scan of the chest which showed multiple well- circumscribed chest nodules with mild bilateral pleural effusion. Patient will be admitted for further assessment and management. Past medical history: Coronary artery disease status post CABG, hypothyroidism, hypertension Past surgical history: CABG Social history: Denies any history of smoking, alcohol, drug use, worked at [employer] Home medications: Atenolol 12.5 mg, lisinopril 10 mg, Synthroid 137 mcg daily, atorvastatin 40 mg daily, aspirin 80 mg daily Review of systems Patient seen and examined at bedside. Resting comfortably, on BiPAP, nonresponsive Reviewed: Care Plan, H&P, Labs, Medications, Previous Orders, Radiology Changes from previous H/P or p: No Changes General: Per HPI Objective Vitals Vital Signs Date Time Temp Pulse Resp B/P (MAP) Pulse Ox O2 Delivery O2 Flow Rate FiO2 08/12/24 09:33 95 106/23 94 Facial BiPAP Mask 100 08/12/24 08:45 19 08/12/24 08:00 98.1 98.1 08/12/24 04:00 15 Intake/Output Intake and Output 08/12/24 07:00 Intake Total 1832.34 ml Output Total 875 ml Balance 957.34 ml Intake Oral 0 ml IV Total 1832.34 ml Output Urine Total 875 ml Exam Constitutional: Patient was to time, place and person and is currently on high- flow oxygen at 60 L/min and has a respiratory rate of 15 to 20/min Gen - no pallor, no icterus, no cyanosis, no clubbing, no LAD, trace bilateral pitting edema. Skin - Patients skin is warm and dry.. HEENT - normocephalic, atraumatic, dry mucous membranes. Neck - full ROM, no LAD, no JVD Pulmonary - B/L diminished breath sounds with basilar inspiratory crackles , no wheezing cardiovascular - regular S1,S2 heard, no added sounds, no murmurs heard. GI - soft, nontender abdomen. no hepatospleenomegaly. Bowel sounds normoactive Neurological - Bilateral upper extremity strength 3/5, bilateral lower extremity strength 3/5, no facial droop, normal speech, no tremor, no sensory deficiets. Medications Current Medications Medications Dose Ordered Sig/Laurence Route Start Time Stop Time Status Last Admin Dose Admin Acetaminophen 500 mg Q4HPRN PRN PO 07/26/24 05:30 Ipratropium [place] 0.5 mg Q6HR NEB 07/27/24 00:00 08/12/24 06:13 0.5 MG Levalbuterol HCl 0.625 mg Q6HR NEB 07/30/24 06:00 08/12/24 00:07 0.625 MG Meropenem 50 ml @ 17 mls/hr Q8H IV 07/31/24 18:00 08/11/24 22:51 17 MLS/HR Vancomycin HCl 0 ml @ 0 mls/hr UD IV 07/31/24 14:45 Melatonin 5 mg HS PO 07/31/24 23:48 08/10/24 21:19 5 MG Diagnostic Test (Pha) 1 strip Q6HR 08/08/24 00:00 08/12/24 06:17 1 STRIP Insulin Human Regular FOLLOW SLIDING SCALE Q6HR SC 08/08/24 00:00 08/12/24 06:15 20 UNITS Dextrose 50 ml UD IV 08/07/24 22:00 Vancomycin HCl 100 ml @ 100 mls/hr Q16H IV 08/08/24 13:00 08/11/24 21:22 100 MLS/HR Lorazepam 0.5 mg Q6HP PRN IV 08/10/24 04:45 08/12/24 02:42 0.5 MG Morphine Sulfate 1 mg Q6HP PRN IV 08/10/24 04:45 08/10/24 05:05 1 MG Sodium Chloride 10 ml QSHIFT@10,22 IV 08/10/24 22:00 08/12/24 08:03 10 ML Levothyroxine Sodium 75 mcg QAM PO 08/11/24 07:00 Amino Acids 0 ml @ 0 mls/hr PER PHARMACY IV 08/10/24 14:30 08/10/24 21:49 41 MLS/HR Enoxaparin Sodium 40 mg DAILY SC 08/11/24 10:00 Amino Acids/ Electrolytes/ Dextrose 1,000 ml @ 41 mls/hr DAILY@2200 IV 08/10/24 22:00 08/11/24 22:53 41 MLS/HR Norepinephrine Bitartrate 250 ml @ 3.75 mls/hr Q24H IV 08/12/24 08:00 08/12/24 08:02 3.75 MLS/HR Laboratory Results Laboratory Tests 08/12/24 05:10 Chemistry Test 08/12/24 05:10 Albumin 2.1 g/dL (3.2-4.8) L Calcium Level 9.0 mg/dL (8.7-10.4) Magnesium Level 2.0 mg/dL (1.6-2.6) Phosphorus Level 4.7 mg/dL (2.4-5.1) Total Protein 5.2 g/dL (5.7-8.2) L LFT Test 08/12/24 05:10 Alanine Aminotransferase (ALT) 21 U/L (7-40) Alkaline Phosphatase 137 U/L (46-116) H Aspartate Amino Transferase (AST) 31 U/L (13-40) Total Bilirubin 0.3 mg/dL (0.2-1.0) Urinalysis Test 07/26/24 12:05 Urine Color Light-orange (Yellow) Urine Clarity Turbid (Clear) H Urine pH 6.0 (5.0-9.0) Urine Specific [place] > 1.035 (1.001-1.035) Urine Protein 1+ (Negative) H Urine Ketones 1+ (Negative) H Urine Blood 3+ /uL (Negative) H Urine Nitrite Negative (Negative) Urine Bilirubin Negative (Negative) Urine Urobilinogen Normal mg/dL (Negative) Urine Leukocyte Esterase Trace /uL (Negative) Urine RBC 480 /hpf (0 - 3) Urine Microscopic WBC 47 /HPF (0-3) H Urine Squamous Epithelial Cells Few /hpf (<5) Urine Bacteria None seen /hpf (None Seen) Urine Mucus Few (None Seen) Urine Glucose Normal mg/dL (Normal) Microbiology Microbiology Date/Time Source Procedure Growth Status 08/06/24 02:40 Nose MRSA Screen - Final Complete 08/01/24 16:25 Pleural Fluid Gram Stain - Final Complete 08/01/24 16:25 Pleural Fluid Body Fluid Culture - Final Complete 07/26/24 15:00 Sputum Gram Stain - Final Complete 07/26/24 15:00 Sputum Respiratory Culture - Final Complete 07/25/24 19:08 Blood Blood Culture - Final NO GROWTH AFTER 5 DAYS OF INCUBATION. Complete Labs and/or images reviewed: Labs reviewed by me, Image(s) reviewed by me Assessment/Plan Assessment/Plan Update 08/11 - Was anxious , some sob, given ativan and sleeping comfortably. A&O x3. Worsening hypoxia requiring changed from high-flow to BiPAP. He was on continuous BiPAP now. Wants to remain on full treatment but DNR DNI. We will continue treatment for now. Continue present primary team treatment plan. Patient on pureed diet. Being followed by pulmonology, GI. Urology wants to outpatient if patient improves. Given complete clinical picture if hypoxemic keeps to worsen slightly very poor prognosis patient could possibly 24 hours if hypoxemic conditions worsen. Daughter at bedside this POA and wishes to continuing to honor patient's final wishes of full treatment/DNR DNI. Creatinine is rising we will hold off any further Lasix. Chest x-ray looks unchanged . A.m. ABG on BiPAP 30/11 7.48/39/46 08/12 - nonresponsive today, remains po intolerant due to it and on continuous bipap. maintaining o2 above 90% , high pressures 30/11. siblings are still keeping him full care with dnr dni. currently on bipap and nonresponsive, but will hold off intubation due to code status. making minimal urine in [place] bag and increasing levo at quick rate, will try bolus 500cc over 2 hr, if further vasopressor needed will do vasopressor next, j carlos thereafter. will cont broad spectrum abx. holding off any further diuresis. will keep poa aware of status change. poor prognosis. Patient continues to have worsening vasopressor requirement and family convened shortly after in decides for comfort measures. Neurology Patient was oriented to time, place and person and has no deficit but is drowsy in bed. Respiratory Acute hypoxic respiratory failure Multiple pulmonary nodules, med metastasis likely from primary bladder carcinoma Possible gram +/- bacterial pneumonia Bilateral pleural effusion, likely infectious/malignancy Sepsis with acute organ dysfunction -initial chest x-ray showed multiple ill-defined nodules of various size widespread on bilateral lung gomes -CT scan of the chest showed multiple well-circumscribed chest nodules with bilateral mild pleural effusion -sputum culture showed growth of normal oropharyngeal nithya -coccidiomycosis antibody negative -pulmonary nodules biopsy performed 07/29/24, which reports metastatic carcinoma, 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 Acute on chronic Diastolic heart failure Moderate LVH Mild mitral stenosis, severe mitral annular calcification with enlarged left atrium new onset atrial fibrillation - BNP was 387.4 - EKG showed sinus rhythm with nonspecific T-waves inversion in leads III, AVF, V5, V6 - blood pressure WNL, no vasopressor requirement - holding Lasix 40 mg IV b.i.d. - on amiodarone /oncology ?bladder Cancer with likely metastasis to the lungs Prostatomegaly likely BPH r/o malignancy ?UTI - CT of abdomen and pelvis showed irregular calcified mass and thickening of the wall of the bladder which is concerning for malignancy - consulted Urology for cystoscopy but has not been able to be performed due to patient's poor status and high oxygen supplementation. 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 Endocrinology Hypothyroidism -TSH was 12.89, free T4 0.87 and total T3 0.42 -continue levothyroxine 137 mcg q.a.m. Diet: clinimix ( was not able to swallow pureed diet ) DVT prophylaxis: Enoxaparin PUD prophylaxis: Protonix PICC line inserted on 08/10 [place] catheter inserted on 07/31 Goals of care discussed with the patient's son and daughter as well as patient himself full over 35 minutes. Patient is medical diagnosis of likely bladder cancer with Mets to lungs discussed in detail with the patient and his family including his son Kwaku and his siblings and explained about his poor prognosis. Patient alert and oriented X 4 and decided that he did not want to be intubated or resuscitated. Code status: DNR time spent 23 mins Care time spent excluding procedures: 51 minutes Plan discussed with: Patient Date of Service: Aug 12, 2024 Billing Provider: CHRISS LOUISE MD Common Visit Codes: [id number] CARE 30-74 MIN CHRISS LOUISE MD Aug 12, 2024 09:51
[2024-08-12] MEDS: SODIUM CHLORIDE 0.9% 500 ML IV ONE (10:15)
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
[2024-08-12] MEDS: VASOPRESSIN 20 UNITS in SODIUM CHL 0.9% 99 ML IV SCH (11:04)
[2024-08-12] MEDS: PHENYLEPHRINE IV 250 ML IV SCH (11:40)
[2024-08-12] MEDS: PHENYLEPHRINE IV 250 ML IV ONE (11:41)
[2024-08-12] MEDS: EPINEPHrine HCL 250 ML IV SCH (13:15)
[2024-08-12] MEDS: EPINEPHrine HCL 250 ML IV ONE (13:16)
[2024-08-12] MEDS: MORPHINE SULFATE INJ 2 MG/ml SYRG IV PRN (14:06)
[2024-08-12] MEDS: LORazepam 2MG/ML-1ML VIAL IV PRN (14:06)
[2024-08-12] MEDS: LORazepam 2MG/ML-1ML VIAL ONE (14:14)
[2024-08-12] MEDS: MORPHINE SULFATE INJ 2 MG/ml SYRG ONE (14:14)
--- NOTE | 2024-08-12 14:55 | DVHDS2 ---
Discharge Summary Date of Admission Jul 26, 2024 at 03:33 Date of Discharge: Aug 12, 2024 Labs/Diagnostic Data: Laboratory Results Test 08/12/24 11:15 08/12/24 05:10 08/11/24 08:34 08/11/24 05:17 POC Glucose 219 mg/dl (70-106) White Blood Count 26.2 10^3/uL (4.4-10.8) Red Blood Count 4.19 10^6/uL (4.5-5.90) Hemoglobin 11.5 g/dL (13.5-17.5) Hematocrit 36.4 % (41.0-53.0) Mean Corpuscular Volume 86.8 fL (80.0-100.0) Mean Corpuscular Hemoglobin 27.5 pg (28.0-32.0) Mean Corpuscular Hemoglobin Concent 31.7 g/dL (32.0-36.0) Red Cell Distribution Width 17.2 % (11.8-14.3) Platelet Count 304 10^3/uL (140-450) Mean Platelet Volume 8.4 fL (6.9-10.8) Neutrophils (%) (Auto) % (37.0-80.0) Lymphocytes (%) (Auto) % (10.0-50.0) Monocytes (%) (Auto) % (0.0-12.0) Basophils (%) (Auto) % (0.0-2.0) Neutrophils # (Auto) 10 ^3/uL (1.6-8.6) Lymphocytes # (Auto) 10 ^3/uL (0.4-5.4) Monocytes # (Auto) 10 ^3/uL (0-1.3) Differential Total Cells Counted 100.0 (100) Neutrophils % (Manual) 90 (37.0-80.0) Band Neutrophils % (Manual) 5 Lymphocytes % (Manual) 3 (10.0-50.0) Monocytes % (Manual) 2 (0-12) Eosinophils % (Manual) 0 (0-7) Basophils % (Manual) 0 (0.0-2.0) Metamyelocytes % (manual) 0 Myelocytes % (Manual) 0 Promyelocytes % (Manual) 0 Blast Cells % (Manual) 0 Reactive Lymphocytes 0 Platelet Estimate Adequate [place] Cells Few Sodium Level 134 mmol/L (136-145) Potassium Level 4.4 mmol/L (3.5-5.1) Chloride Level 96 mmol/L (98-107) Carbon Dioxide Level 24 mmol/L (20-31) Anion Gap 14 (5-15) Blood Urea Nitrogen 40 mg/dL (9-23) Creatinine 1.00 mg/dL (0.700-1.30) Glomerular Filtration Rate Calc 78 mL/min (>90) BUN/Creatinine Ratio 40.0 (10.0-20.0) Serum Glucose 355 mg/dL (74-106) Calcium Level 9.0 mg/dL (8.7-10.4) Phosphorus Level 4.7 mg/dL (2.4-5.1) Magnesium Level 2.0 mg/dL (1.6-2.6) Total Bilirubin 0.3 mg/dL (0.2-1.0) Aspartate Amino Transferase (AST) 31 U/L (13-40) Alanine Aminotransferase (ALT) 21 U/L (7-40) Alkaline Phosphatase 137 U/L (46-116) Total Protein 5.2 g/dL (5.7-8.2) Albumin 2.1 g/dL (3.2-4.8) Blood Gas Specimen Type Arterial Blood Gas Sample Site Right radial Blood Gas Patient Temperature 37.0 Arterial Blood Date Drawn [id number] Arterial Blood pH 7.482 (7.350-7.450) Arterial Blood Partial Pressure CO2 39.7 mmHg (35.0-48.0) Arterial Blood Partial Pressure O2 46.8 mmHg (83.0-108.0) Arterial Blood HCO3 29.0 mmol/L (21.0-28.0) Arterial Blood Oxygen Saturation 79.1 % (94.0-98.0) Arterial Blood Base Excess 5.2 mmol/L (-2.0-3.0) Arterial Blood Oxyhemoglobin 78.6 % (94.0-98.0) Arterial Blood Carboxyhemoglobin 0.1 % (0.5-1.5) Arterial Blood Methemoglobin 0.5 % (0.0-1.5) Baldo Test Yes Blood Gas Total Hemoglobin 12.50 g/dL (13.5-17.5) Blood Gas Set Respiration Rate 14.0 Blood Gas Modality Mask - bipap Blood Gas Spontaneous Rate 20 FiO2 % 100.0 Blood Gas Spontaneous Tidal Volume 700 Blood Gas EPAP 8 Blood Gas IPAP 15 Bl Gas Inspiratory/Expiratory Ratio 1:2 Specimen Drawn 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 Blood Gas Critical Value Read Back Yes Blood Gas Notified Whom afua Joya Blood Gas Notified Time [id number] Blood Gas Notified By [facility]hijit [facility] Eosinophils (%) (Auto) 0.4 % (0.0-7.0) Eosinophils # (Auto) 0.1 10 ^3/uL (0-0.8) Basophils # (Auto) 0.2 10 ^3/uL (0-0.2) Nucleated Red Blood Cells 0.0 % Test 08/10/24 12:25 08/10/24 08:27 08/10/24 07:49 08/09/24 04:38 Vancomycin Level Trough 14.2 ug/mL (5-10) Prothrombin Time 11.5 sec (9.3-11.8) Prothrombin Time INR 1.09 (0.9-1.15) Activated Partial Thromboplast Time 32.3 SEC (24.5-34.5) Blood Gas Liter Flow 60.00 Estimated GFR () 178 mL/min Estimated GFR (Non- 147 mL/min Test 08/08/24 04:44 08/08/24 04:40 08/02/24 06:37 08/01/24 16:25 Random Vancomycin Level 11.0 ug/mL (5-10) Triglycerides Level 80 mg/dL (< 150) Free Prostate Specific Antigen 0.98 ng/mL (N/A) Percent Free Prostate Specific Ag 11.3 % (.) Prostate Specific Antigen Total 8.7 ng/mL (0.0-4.0) Body Fluid Source Pleural fluid Body Fluid pH 8.0 Body Fluid WBC (Manual) 1876 CUMM (0-200) Body Fluid RBC (Manual) 6558 CUMM (0-2000) Body Fluid Mononuclear Cells 30 % Body Fluid Polymorphonuclear Cells 70 % (0-25) Body Fluid Glucose 139 mg/dL (.) Body Fluid Total Protein 2.5 g/dL (.) Body Fluid Lactate Dehydrogenase 130 IU/L (.) Test 07/30/24 07:29 07/30/24 06:47 07/27/24 05:13 07/26/24 15:25 Troponin I High Sensitivity 28 ng/L (</=54) B-Type Natriuretic Peptide 237.12 pg/mL (0-100) Thyroid Stimulating Hormone (TSH) 12.28 uIU/mL (0.55-4.78) Free Thyroxine (T4) Calculated 1.02 ng/dL (0.89-1.76) Vitamin B12 Level 1353 pg/mL (211-911) Vitamin D 25-Hydroxy 42.5 ng/mL (30.0-100) SARS-CoV-2 Antigen (Rapid) Negative (NEGATIVE) Test 07/26/24 12:05 07/26/24 12:00 07/26/24 06:14 07/25/24 19:08 Urine Color Light-orange (Yellow) Urine Clarity Turbid (Clear) Urine pH 6.0 (5.0-9.0) Urine Specific [place] > 1.035 (1.001-1.035) Urine Protein 1+ (Negative) Urine Ketones 1+ (Negative) Urine Blood 3+ /uL (Negative) Urine Nitrite Negative (Negative) Urine Bilirubin Negative (Negative) Urine Urobilinogen Normal mg/dL (Negative) Urine Leukocyte Esterase Trace /uL (Negative) Urine RBC 480 /hpf (0 - 3) Urine Microscopic WBC 47 /HPF (0-3) Urine Squamous Epithelial Cells Few /hpf (<5) Urine Bacteria None seen /hpf (None Seen) Urine Mucus Few (None Seen) Urine Glucose Normal mg/dL (Normal) Urine Opiates Screen Neg (NEGATIVE) Urine Fentanyl Screen Neg (NEGATIVE) Urine Barbiturates Screen Neg (NEGATIVE) Urine Phencyclidine Screen Neg (NEGATIVE) Urine Amphetamines Screen Neg (NEGATIVE) Urine Benzodiazepines Screen Neg (NEGATIVE) Urine Cocaine Screen Neg (NEGATIVE) Urine Cannabinoids Screen Neg (NEGATIVE) Influenza Type A Antigen Negative (Negative) Influenza Type B Antigen Negative (Negative) Total Triiodothyronine (TT3) 0.42 ng/mL (0.60-1.81) Coccidioides Antibody (Comp Fix) <1:2 (<1:2) HIV (1&2) Antibody Negative (Negative) Lactic Acid Level 1.6 mmol/L (0.4-2.0) Other Laboratory Tests 08/12/24 05:10 Brief Hx & Hospital Course: Note I was notified by nursing at 14:10 that the patient was asystole on Telemetry. Family members were notified that the patient may pass away soon. I came to bedside at 14:10. I examined the patient and there was no pupillary response to light. I did not observe spontaneous breathing or appreciate heart sounds on auscultation. There was no palpable radial pulse. The patient did not respond to nail bed stimuli. Patient was pronounced at 14:10 on 08/12/2024. I offered my condolences to the family members and offered access to additional services at the hospital such as social work. TOBI Matias was also present during the exam. Cause of Cardiopulmonary arrest. Chriss Sheldon MD 08/12/2024 Condition at Discharge: Critical Final Diagnosis/Problems List Patient / Asystole due to cardiopulmonary arrest due to below Acute hypoxic respiratory failure Multiple pulmonary nodules, med metastasis likely from primary bladder carcinoma Possible gram +/- bacterial pneumonia Bilateral pleural effusion, likely infectious/malignancy Sepsis with acute organ dysfunction Acute on chronic Diastolic heart failure Moderate LVH Mild mitral stenosis, severe mitral annular calcification with enlarged left atrium new onset atrial fibrillation bladder Cancer with likely metastasis to the lungs Prostatomegaly likely BPH r/o malignancy Distal thickening of esophagus, R/O malignancy Hypothyroidism Discharge Disposition: at Hospital Discharge Statement: "Patient was advised to return to the ER or call 911 if any headaches, dizziness, shortness of breath, chest pain, abdominal pain, bleeding, fevers, or worsening of medical condition. Patient was counseled about treatment plan, medications, possible side effects, patientverbalized understanding. All questions were answered to the best of my ability. This discharge took greater then 30 minutes in planning, reviewing documentation, counseling the patient, and discussing with other team members." ASSESSMENT ASSESSMENT Assessment Date of Service: Aug 12, 2024 Billing Provider: CHRISS LOUISE MD Common Visit Codes: NOT BILLABLE CHRISS LOUISE MD Aug 12, 2024 14:55
--- NOTE | 2024-08-12 16:39 | DVH ---
CHEST RADIOGRAPH Indication: PICC PLACEMENT Technique: Single frontal view of the chest was obtained COMPARISON: None FINDINGS: Lines and Tubes: Median sternotomy. PICC line is not visualized. Lungs: Severe multifocal airspace disease Pleura: No effusion. No pneumothorax. Cardiomediastinal contours: Unremarkable Bones: Unremarkable IMPRESSION: Severe multifocal airspace disease, unchanged.
== END 2024-08-12 14:10 | DRG 180 ==
LOC: ER 18:11 → OVERFLOW 07-26 03:33 → WEST WING 07-26 09:47 → TELE-WESTW 07-29 23:55 → ICU WEST 08-06 02:34 → DOU IN ICU 08-07 05:00
PROVIDERS: ADMIT Internal Medicine Pulmonary Disease; ATTEND Emergency Medicine
PROC: 0BBC3ZX Excision of Right Upper Lung Lobe, Percutaneous Approach, Diagnostic (ICD-10-PCS; 2024-07-30)
PROC: 0W9930Z Drainage of Right Pleural Cavity with Drainage Device, Percutaneous Approach (ICD-10-PCS; principal; 2024-08-01)
PROC: 5A09357 Assistance with Respiratory Ventilation, Less than 24 Consecutive Hours, Continuous Positive Airway Pressure (ICD-10-PCS; 2024-08-02)
PROC: 5A0935A Assistance with Respiratory Ventilation, Less than 24 Consecutive Hours, High Flow/Velocity Cannula (ICD-10-PCS; 2024-08-06)
PROC: 5A0935A Assistance with Respiratory Ventilation, Less than 24 Consecutive Hours, High Flow/Velocity Cannula (ICD-10-PCS; 2024-08-07)
PROC: 5A0935A Assistance with Respiratory Ventilation, Less than 24 Consecutive Hours, High Flow/Velocity Cannula (ICD-10-PCS; 2024-08-08)
PROC: 5A0935A Assistance with Respiratory Ventilation, Less than 24 Consecutive Hours, High Flow/Velocity Cannula (ICD-10-PCS; 2024-08-09)
PROC: 02HV33Z Insertion of Infusion Device into Superior Vena Cava, Percutaneous Approach (ICD-10-PCS; 2024-08-10)
PROC: B548ZZA Ultrasonography of Superior Vena Cava, Guidance (ICD-10-PCS; 2024-08-10)
PROC: 5A09357 Assistance with Respiratory Ventilation, Less than 24 Consecutive Hours, Continuous Positive Airway Pressure (ICD-10-PCS; 2024-08-10)
PROC: 5A0935A Assistance with Respiratory Ventilation, Less than 24 Consecutive Hours, High Flow/Velocity Cannula (ICD-10-PCS; 2024-08-11)
PROC: 5A09357 Assistance with Respiratory Ventilation, Less than 24 Consecutive Hours, Continuous Positive Airway Pressure (ICD-10-PCS; 2024-08-11)
PROC: 5A0935A Assistance with Respiratory Ventilation, Less than 24 Consecutive Hours, High Flow/Velocity Cannula (ICD-10-PCS; 2024-08-11)
PROC: 5A09357 Assistance with Respiratory Ventilation, Less than 24 Consecutive Hours, Continuous Positive Airway Pressure (ICD-10-PCS; 2024-08-12)
DX: C78.01 Secondary malignant neoplasm of right lung (principal); A41.9 Sepsis, unspecified organism; J15.69 Pneumonia due to other Gram-negative bacteria; J96.01 Acute respiratory failure with hypoxia; I50.33 Acute on chronic diastolic (congestive) heart failure; J15.9 Unspecified bacterial pneumonia; C15.9 Malignant neoplasm of esophagus, unspecified; E44.0 Moderate protein-calorie malnutrition; C78.02 Secondary malignant neoplasm of left lung; I11.0 Hypertensive heart disease with heart failure; C67.9 Malignant neoplasm of bladder, unspecified; R91.8 Other nonspecific abnormal finding of lung field; E03.9 Hypothyroidism, unspecified; I25.10 Atherosclerotic heart disease of native coronary artery without angina pectoris; K57.30 Diverticulosis of large intestine without perforation or abscess without bleeding; K80.20 Calculus of gallbladder without cholecystitis without obstruction; I48.91 Unspecified atrial fibrillation; Z20.822 Contact with and (suspected) exposure to COVID-19; Z66 Do not resuscitate; I46.9 Cardiac arrest, cause unspecified; I34.81 Nonrheumatic mitral (valve) annulus calcification; E78.5 Hyperlipidemia, unspecified; D64.9 Anemia, unspecified; N40.1 Benign prostatic hyperplasia with lower urinary tract symptoms; R31.0 Gross hematuria; R33.8 Other retention of urine; Z79.899 Other long term (current) drug therapy; Z95.1 Presence of aortocoronary bypass graft; Z79.82 Long term (current) use of aspirin; Z68.23 Body mass index [BMI] 23.0-23.9, adult; Z85.51 Personal history of malignant neoplasm of bladder; Z99.81 Dependence on supplemental oxygen
CPT/HCPCS: 10005; 32557; 36415; 36569; 36600; 71045; 71250; 71260; 74177; 76604; 76937; 77012; 80048; 80053; 80069; 80202; 80307; 81001; 82306; 82607; 82805; 82962; 83605; 83735; 83880; 83986; 84100; 84132; 84154; 84439; 84443; 84478; 84480; 84484; 85007; 85014; 85018; 85025; 85027; 85610; 85730; 86635; 86703; 87040; 87070; 87081; 87205; 87426; 87804; 89051; 92610; 93005; 93306; 94640; 94660; 96365; 96366; 96368; 97110; 97116; 97163; G0378; J0171; J1885; J2003; J2185; J2250; J7060